=== PATIENT | female | born 1930 | race Caucasian/White ===

== ENCOUNTER → 2016-10-30 | Outpatient (CLI) | payer MEDICARE, BC ==
[~2016-10-30] MED LIST: AMBI10TA PO; DORZ2SOL RIGHT EYE; LATA0.002 EACH EYE; LOSA100T3 PO; LOSA50TA2 PO; MIRT30TA PO; MONT10TA2 PO; MULT-6 PO; OCUVCAP2 PO; PRAV20TA2 PO; TIMO0.5S5 EACH EYE; VITA100018 PO; VITA10002 PO; VITA10003 PO; XARE20TA PO
[2016-10-30 09:31] LABS: BASOPHIL % 0.3 % (0.0-2.0); EOSINOPHIL # 0.2 TH/MM3 (0-0.4); HEMATOCRIT 38.8 % (35.0-46.0); HEMO FLAGS DIFF FINAL; MEAN CORPUSCULAR HEMOGLOBIN 30.3 PG (27.0-34.0); MONO % 8.7 % (0.0-8.0); PLATELET COUNT 350 TH/MM3 (150-450); RED BLOOD COUNT 4.22 MIL/MM3 (4.00-5.30); RED CELL DISTRIBUTION WIDTH 13.9 % (11.6-17.2); WHITE BLOOD COUNT 6.9 TH/MM3 (4.0-11.0)
[2016-10-30 10:06] LABS: ALKALINE PHOSPHATASE 119 U/L (45-117); ALT (GPT) 20 U/L (10-53); ANION GAP 6 MEQ/L (5-15); AST (GOT) 20 U/L (15-37); BICARBONATE 28.6 MEQ/L (21.0-32.0); BLOOD UREA NITROGEN 18 MG/DL (7-18); CHLORIDE 101 MEQ/L (98-107); GLOMERULAR FILTRATION RATE 93 ML/MIN (>89); GLUCOSE,FASTING 88 MG/DL (74-99); LDL CHOLESTEROL 73 MG/DL (0-99); POTASSIUM 4.2 MEQ/L (3.5-5.1); SODIUM (NA) 136 MEQ/L (136-145); TOTAL BILIRUBIN ADULT 0.6 MG/DL (0.2-1.0)
== END ==
LOC: PLAB 08:02
PROVIDERS: ATTEND Family Medicine
DX: I48.91 Unspecified atrial fibrillation (principal); E78.5 Hyperlipidemia, unspecified; I10 Essential (primary) hypertension; Z79.01 Long term (current) use of anticoagulants
CPT/HCPCS: 36415; 80053; 80061; 85025

== ENCOUNTER 2016-11-14 18:51 | Emergency (ER) | payer MEDICARE, BC ==
[~2016-11-14] VITALS: Ht 170.2 cm; Wt 82.9 kg
[~2016-11-14 18:51] MED LIST changes: -DORZ2SOL RIGHT EYE; -LATA0.002 EACH EYE; -LOSA50TA2 PO; -OCUVCAP2 PO; -PRAV20TA2 PO; -VITA100018 PO; -VITA10002 PO
[2016-11-14 19:00] VITALS: BP 158/90; PULSE 81; RESP 18; TEMP 97.7; O2SAT 94
--- NOTE | 2016-11-14 19:18 | PD ---
HPI Chief Complaint: Hypertension Time Seen by Provider: 19:10 Travel History International Travel<30 days: No Contact w/Intl Traveler<30days: No Traveled to known affect area: No History of Present Illness HPI The patient is an 85-year-old female who states her blood pressure has been going up and down today. It is now 140/90. She states she has a gradual onset of a headache at the base of her skull and goes to the right slightly. She is on Xarelto for atrial fibrillation. She denies any focal neurologic change. She has no focal strength loss, no fever, no weakness or numbness anywhere. She has had some headaches like this before but they were higher up in her head. When the patient turns her head to the left she does feel some pain. PFSH Past Medical History Hx Anticoagulant Therapy: Yes (XERELTO) AAA: Yes Alzheimer's Disease: Yes ("EARLY") Arthritis: Yes (HANDS) Asthma: Yes Atrial Fibrillation: Yes Cancer: No Cardiovascular Problems: Yes High Cholesterol: Yes Cerebrovascular Accident: Yes (AUGUST 2013) Diminished Hearing: No Endocrine: No Glaucoma: Yes Hypertension: Yes Immune Disorder: No Inguinal Hernia: Yes Musculoskeletal: No Neurologic: Yes Psychiatric: No Respiratory: Yes Immunizations Current: Yes Pneumonia: Yes PNEUMOCCOCAL Vaccine (Year): 2009 Menopausal: Yes : 3 Para: 3 Past Surgical History Abdominal Surgery: Yes (LEFT INGUINAL HERNIA REPAIR) Appendectomy: Yes Eye Surgery: Yes (CATARACTS X2) Gynecologic Surgery: Yes (prolapsed uterus) Hysterectomy: Yes (PARTIAL) Other Surgery: Yes (2 BREAST BIOPSIES: EACH BREAST "NO MALIGNANCIES") Social History Alcohol Use: No Tobacco Use: No Substance Use: No Allergies-Medications (Allergen,Severity, Reaction): Coded Allergies: No Known Allergies (Verified , 11/14/16) Reported Meds & Prescriptions Reported Meds & Active Scripts Active Reported Ambien (Zolpidem Tartrate) 10 Mg Tab 10 Mg PO HS PRN Xarelto (Rivaroxaban) 20 Mg Tab 20 Mg PO DAILY Timoptic Opth Drops (Timolol Opth Drops) 0.5 % Soln 1 Drop EACH EYE BID Centrum (Multiple Vitamins W/ Minerals) 1 Tab 1 Tab PO DAILY Singulair (Montelukast Sodium) 10 Mg Tab 10 Mg PO HS Mirtazapine 30 Mg Tab 30 Mg PO HS Losartan-Hydrochlorothiazide 100-12.5 Mg Tab 1 Tab PO DAILY Vitamin D-3 (Cholecalciferol) 1,000 Unit Tab 1,000 Units PO DAILY Review of Systems Except as stated in HPI: all other systems reviewed are Neg Physical Exam Narrative GENERAL: The patient is alert, oriented 3 in minimal apparent distress with her headache. Her vital signs initially showed blood pressure 158/90 no repeat vital signs show 140/90 blood pressure. The rest of the vital signs are normal. SKIN: Warm and dry. HEAD: Atraumatic. Normocephalic. EYES: Pupils equal and round. No scleral icterus. No injection or drainage. ENT: No nasal bleeding or discharge. Mucous membranes pink and moist. NECK: Trachea midline. No JVD. There is no meningismus and the patient can flex neck fully without any hesitation so that the chin touches the chest. I can reproduce the patient's pain by pressing on the musculature of the upper neck. CARDIOVASCULAR: Regular rate and rhythm. No murmur appreciated. RESPIRATORY: No accessory muscle use. Clear to auscultation. Breath sounds equal bilaterally. GASTROINTESTINAL: Abdomen soft, non-tender, nondistended. Hepatic and splenic margins not palpable. MUSCULOSKELETAL: No obvious deformities. No clubbing. No cyanosis. No edema. NEUROLOGICAL: Awake and alert. No obvious cranial nerve deficits. Motor grossly within normal limits. Normal speech. PSYCHIATRIC: Appropriate mood and affect; insight and judgment normal. Data Data Last Documented VS Vital Signs Date Time Temp Pulse Resp B/P Pulse Ox O2 Delivery O2 Flow Rate FiO2 11/14/16 19:38 76 18 144/71 95 Room Air 11/14/16 19:[address] Brain W/O Iv Contrast(Rout) (11/14/16 19:10) [facility] Medical Decision Making Medical Screen Exam Complete: Yes Emergency Medical Condition: Yes Medical Record Reviewed: Yes Interpretation(s) The CT scan shows normal for a patient of this age. Differential Diagnosis Intercranial bleed, musculoskeletal headache, tension headache Narrative Course The patient appears to have a musculoskeletal headache. I can reproduce the pain by pressing on the musculature on the upper neck. It is not safe for her to take nonsteroidal anti-inflammatories with her anticoagulant and she does not want any pain medications. He can take plain Tylenol for the pain. Diagnosis Primary Impression: Neck pain, musculoskeletal Additional Instructions: Take plain Tylenol for the pain, this is about all its left other than narcotic pain pills which you do not want. Because this pain is musculoskeletal, it should go away on its own. If it does not heal left to see her primary care physician and, perhaps get an MRI of the neck. Med/Other Pt SpecificInfo: No Change to Meds Disposition: 01 DISCHARGE HOME Condition: Stable Marc Marti MD Nov 14, 2016 19:18
[2016-11-14 19:38] VITALS: BP 144/71; PULSE 76; RESP 18; O2SAT 95
[2016-11-14 20:10] VITALS: BP 105/62; PULSE 74; RESP 18; O2SAT 95
--- NOTE | 2016-11-14 20:24 | RADHPO ---
EXAM DATE/TIME: 11/14/2016 19:22 [facility] COMPARISON: CT BRAIN W/O CONTRAST, September 22, 2016, 21:56. INDICATIONS : Headache. RADIATION DOSE: 62.71 CTDIvol (mGy) MEDICAL HISTORY : Cerebrovascular disease. Alzheimer's. Hypertension. SURGICAL HISTORY : None. ENCOUNTER: Initial ACUITY: 1 day PAIN SCALE: 7/10 LOCATION: occipital TECHNIQUE: Multiple contiguous axial images were obtained of the head. Using automated exposure control and adj ustment of the mA and/or kV according to patient size, radiation dose was kept as low as reasonably a chievable to obtain optimal diagnostic quality images. FINDINGS: CEREBRUM: The ventricles are normal for age. No evidence of midline shift, mass lesion, hemorrhage or acute in farction. No extra-axial fluid collections are seen. POSTERIOR FOSSA: The cerebellum and brainstem are intact. The 4th ventricle is midline. The cerebellopontine angle i s unremarkable. EXTRACRANIAL: The visualized portion of the orbits is intact. SKULL: The calvaria is intact. No evidence of skull fracture. CONCLUSION: Normal examination for a patient of this age. No significant change has occurred. Pj Moses MD on November 14, 2016 at 20:21 Board Certified Radiologist. This report was verified electronically.
[2016-11-14 20:41] VITALS: BP 123/75
[2017-02-18] MEDS ORDERED: OCUVCAP2 PO (13:33)
[2017-02-18] MEDS ORDERED: LATA0.002 EACH EYE (13:34)
[2017-02-18] MEDS ORDERED: VITA10003 PO (13:34)
[2017-02-18] MEDS ORDERED: PRAV20TA2 PO (13:34)
[2017-03-26] MEDS ORDERED: VITA100018 PO (13:44)
[2017-03-26] MEDS ORDERED: VITA10002 PO (13:45)
[2017-03-26] MEDS ORDERED: DORZ2SOL RIGHT EYE (13:48)
== END 2016-11-14 20:55 | disposition home or self-care (01) ==
LOC: PHED 18:51
DX: M54.2 Cervicalgia (principal); R51 Headache; I10 Essential (primary) hypertension; I48.91 Unspecified atrial fibrillation; E78.00 Pure hypercholesterolemia, unspecified; Z79.01 Long term (current) use of anticoagulants
CPT/HCPCS: 70450

== ENCOUNTER 2016-12-02 20:28 | Observation (INO) | payer MEDICARE, BC ==
[~2016-12-02] VITALS: Ht 170.2 cm; Wt 83.0 kg
[2016-12-02 20:32] VITALS: BP 139/79; PULSE 79; RESP 14; TEMP 97.5; O2SAT 95
[2016-12-02] MEDS ORDERED: SODIUM CHLORIDE 0.9% FLUSH 5 ML FLUSH IVF PRN (21:30)
[2016-12-02 21:33] LABS: AUTOMATED NEUTROPHIL # 4.8 TH/MM3 (1.8-7.7); BASOPHIL % 0.5 % (0.0-2.0); EOSINOPHIL # 0.2 TH/MM3 (0-0.4); EOSINOPHIL % 2.6 % (0.0-4.0); HEMATOCRIT 37.7 % (35.0-46.0); HEMO FLAGS DIFF FINAL; LYMPH % 19.9 % (9.0-44.0); LYMPHOCYTE # 1.4 TH/MM3 (1.0-4.8); MEAN CELL VOLUME 90.8 FL (80.0-100.0); MEAN CORPUSCULAR HEMOGLOBIN 31.1 PG (27.0-34.0); MEAN CORPUSCULAR HGB CONC 34.2 % (32.0-36.0); MONO % 9.1 % (0.0-8.0); NEUT % 67.9 % (16.0-70.0); PLATELET COUNT 329 TH/MM3 (150-450); RED BLOOD COUNT 4.16 MIL/MM3 (4.00-5.30); RED CELL DISTRIBUTION WIDTH 14.4 % (11.6-17.2); WHITE BLOOD COUNT 7.1 TH/MM3 (4.0-11.0)
[2016-12-02 21:47] LABS: APTT (PATIENT) 26.4 SEC (24.3-30.1); PROTHROMBIN TIME - PATIENT 10.9 SEC (9.8-11.6)
--- NOTE | 2016-12-02 21:52 | RADRPT ---
EXAM DATE/TIME: 12/02/2016 21:37 [facility] COMPARISON: CHEST SINGLE AP, February 19, 2014, 17:18. INDICATIONS : Patient was passed out tonight at [employer].She had shallow breathing. MEDICAL HISTORY : Hypertension. Stroke. SURGICAL HISTORY : None. ENCOUNTER: Initial ACUITY: 1 day PAIN SCORE: 0/10 LOCATION: chest FINDINGS: There is mild bibasilar atelectasis. No large effusion seen. No pneumothorax. Heart size stable, upper limits of normal. Thoracic aorta is tortuous. CONCLUSION: Mild bibasilar atelectasis. Bud Turner MD on December 02, 2016 at 21:50 Board Certified Radiologist. This report was verified electronically.
[2016-12-02 21:58] VITALS: BP 144/71; PULSE 77; RESP 14; O2SAT 96
[2016-12-03 00:34] LABS: ANION GAP 8 MEQ/L (5-15); AST (GOT) 24 U/L (15-37); BICARBONATE 29.4 MEQ/L (21.0-32.0); BLOOD UREA NITROGEN 21 MG/DL (7-18); CHLORIDE 99 MEQ/L (98-107); GLOMERULAR FILTRATION RATE 86 ML/MIN (>89); MAGNESIUM 2.2 MG/DL (1.5-2.5); SODIUM (NA) 136 MEQ/L (136-145)
[2016-12-03 00:38] LABS: ALKALINE PHOSPHATASE 98 U/L (45-117); ALT (GPT) 25 U/L (10-53); CREATINE KINASE 128 U/L (26-192); TOTAL BILIRUBIN ADULT 0.4 MG/DL (0.2-1.0)
[2016-12-03 00:50] LABS: CKMB 2.2 NG/ML (0.5-3.6)
--- NOTE | 2016-12-03 00:51 | PD ---
HPI Chief Complaint: Syncope/Near-Syncope Time Seen by Provider: 21:17 Travel History International Travel<30 days: No Contact w/Intl Traveler<30days: No Traveled to known affect area: No History of Present Illness HPI Patient is an 85-year-old female presents emergency department for evaluation of syncopal episode at [facility] today. Patient was coming by her at [facility] who states she was slumped over and appeared as though she was sleeping. He was unable to arouse her and actually had to stop the services so that they could attend to her. Patient was assessed by 3 bystanders including one nurse who were unable to find pulses. The patient was being laid down in the pew and was going to be started on chest compressions in the field within the patient came to. She states currently she feels fine denies any focal weakness dizziness chest pain shortness of breath abdominal pain nausea vomiting. PFSH Past Medical History Hx Anticoagulant Therapy: Yes (XARELTO) AAA: Yes Alzheimer's Disease: Yes ("EARLY") Arthritis: Yes (HANDS) Asthma: Yes Atrial Fibrillation: Yes Cancer: No Cardiovascular Problems: Yes (A FIB, HTN) High Cholesterol: Yes Diminished Hearing: No Endocrine: No Glaucoma: Yes Hypertension: Yes Immune Disorder: No Inguinal Hernia: Yes Musculoskeletal: No Neurologic: Yes Psychiatric: No Respiratory: Yes (ASTHMA) Immunizations Current: Yes Pneumonia: Yes PNEUMOCCOCAL Vaccine (Year): 2009 ?: Not Menopausal: Yes : 3 Para: 3 Past Surgical History Abdominal Surgery: Yes (LEFT INGUINAL HERNIA REPAIR) Appendectomy: Yes Eye Surgery: Yes (CATARACTS X2) Gynecologic Surgery: Yes (prolapsed uterus) Hysterectomy: Yes Other Surgery: Yes (2 BREAST BIOPSIES: EACH BREAST "NO MALIGNANCIES") Social History Alcohol Use: No Tobacco Use: No Substance Use: No Allergies-Medications (Allergen,Severity, Reaction): Coded Allergies: No Known Allergies (Verified , 12/02/16) Reported Meds & Prescriptions Reported Meds & Active Scripts Active Reported Ambien (Zolpidem Tartrate) 10 Mg Tab 10 Mg PO HS PRN Xarelto (Rivaroxaban) 20 Mg Tab 20 Mg PO DAILY Timoptic Opth Drops (Timolol Opth Drops) 0.5 % Soln 1 Drop EACH EYE BID Centrum (Multiple Vitamins W/ Minerals) 1 Tab 1 Tab PO DAILY Singulair (Montelukast Sodium) 10 Mg Tab 10 Mg PO HS Mirtazapine 30 Mg Tab 30 Mg PO HS Losartan-Hydrochlorothiazide 100-12.5 Mg Tab 1 Tab PO DAILY Vitamin D-3 (Cholecalciferol) 1,000 Unit Tab 1,000 Units PO DAILY Review of Systems Except as stated in HPI: all other systems reviewed are Neg Physical Exam Narrative GENERAL: Well-developed well-nourished quite pleasant female in no apparent distress. SKIN: Warm and dry. HEAD: Atraumatic. Normocephalic. EYES: Pupils equal and round. No scleral icterus. No injection or drainage. ENT: No nasal bleeding or discharge. Mucous membranes pink and moist. NECK: Trachea midline. No JVD. CARDIOVASCULAR: Regular rate and rhythm. No murmur appreciated. RESPIRATORY: No accessory muscle use. Clear to auscultation. Breath sounds equal bilaterally. GASTROINTESTINAL: Abdomen soft, non-tender, nondistended. Hepatic and splenic margins not palpable. MUSCULOSKELETAL: No obvious deformities. No clubbing. No cyanosis. No edema. NEUROLOGICAL: Awake and alert. Oriented 3, cranial nerves II through XII are grossly intact nonfocal, 5 out of 5 strength in all 4 tremors. Cerebellar testing normal. Ambulates in the emergency department even and balance with a narrow based gait. PSYCHIATRIC: Appropriate mood and affect; insight and judgment normal. Data Data Last Documented VS Vital Signs Date Time Temp Pulse Resp B/P Pulse Ox O2 Delivery O2 Flow Rate FiO2 12/02/16 21:58 77 14 144/71 96 Room Air 12/02/16 20:32 97.5 Orders Electrocardiogram (12/02/16 21:17) Ckmb (Isoenzyme) Profile (12/02/16 21:17) Complete Blood Count With Diff (12/02/16 21:17) Comprehensive Metabolic Panel (12/02/16 21:17) Magnesium (Mg) (12/02/16 21:17) Prothrombin Time / Inr (Pt) (12/02/16 21:17) Act Partial Throm Time (Ptt) (12/02/16 21:17) Troponin I (12/02/16 21:17) Chest, Single Ap (12/02/16 21:17) Ecg Monitoring (12/02/16 21:17) Bilateral Bp Monitoring (12/02/16 21:17) Iv Access Insert/Monitor (12/02/16 21:17) Oximetry (12/02/16 21:17) Oxygen Administration (12/02/16 21:17) Sodium Chloride 0.9% Flush (Ns Flush) (12/02/16 21:30) CKMB (12/03/16 00:06) CKMB% (12/03/16 00:06) Admit Order (Ed Use Only) (12/03/16 ) Labs Laboratory Tests Test 12/02/16 12/03/16 21:25 00:06 Prothrombin Time 10.9 SEC Prothromb Time International 1.0 RATIO Ratio Activated Partial 26.4 SEC Thromboplast Time White Blood Count 7.1 TH/MM3 Red Blood Count 4.16 MIL/MM3 Hemoglobin 12.9 GM/DL Hematocrit 37.7 % Mean Corpuscular Volume 90.8 FL Mean Corpuscular Hemoglobin 31.1 PG Mean Corpuscular Hemoglobin 34.2 % Concent Red Cell Distribution Width 14.4 % Platelet Count 329 TH/MM3 Mean Platelet Volume 7.4 FL Neutrophils (%) (Auto) 67.9 % Lymphocytes (%) (Auto) 19.9 % Monocytes (%) (Auto) 9.1 % Eosinophils (%) (Auto) 2.6 % Basophils (%) (Auto) 0.5 % Neutrophils # (Auto) 4.8 TH/MM3 Lymphocytes # (Auto) 1.4 TH/MM3 Monocytes # (Auto) 0.6 TH/MM3 Eosinophils # (Auto) 0.2 TH/MM3 Basophils # (Auto) 0.0 TH/MM3 CBC Comment DIFF FINAL Differential Comment Sodium Level 136 MEQ/L Potassium Level 4.0 MEQ/L Chloride Level 99 MEQ/L Carbon Dioxide Level 29.4 MEQ/L Anion Gap 8 MEQ/L Blood Urea Nitrogen 21 MG/DL Creatinine 0.65 MG/DL Estimat Glomerular Filtration 86 ML/MIN Rate Random Glucose 103 MG/DL Calcium Level 9.0 MG/DL Magnesium Level 2.2 MG/DL Total Bilirubin 0.4 MG/DL Aspartate Amino Transf 24 U/L (AST/SGOT) Alanine Aminotransferase 25 U/L (ALT/SGPT) Alkaline Phosphatase 98 U/L Total Creatine Kinase 128 U/L Creatine Kinase MB 2.2 NG/ML Troponin I LESS THAN 0.02 NG/ML Total Protein 8.4 GM/DL Albumin 4.5 GM/DL [facility] Medical Decision Making Medical Screen Exam Complete: Yes Emergency Medical Condition: Yes Interpretation(s) EKG shows sinus first degree heart block with a SC interval of 202. Borderline left axis deviation, early R-wave transition. No concerning ST T changes. This a borderline EKG. Differential Diagnosis Cardiogenic syncope, cardiac arrest, asystole, ACS, AMI, neurogenic syncope, narcolepsy Narrative Course Patient was roomed in the emergency department, on arrival appears completely asymptomatic. Vital signs physical exam and labs are reassuring. EKG shows no concerning signs of ischemia. Patient appears well after discussion with her concerned that 3 bystanders were unable to find her pulse and she was very difficult to arouse in the field. Adding concerns for cardiogenic syncope. Patient will be discussed with Dr. Ascencio for observation status. Diagnosis Primary Impression: Syncope Qualified Code: T67.1XXA - Heat syncope, initial encounter Admitting Information Admitting Physician Requests: Observation Condition: Stable Jorge Gabriel MD Dec 03, 2016 00:51
[2016-12-03] MEDS ORDERED: SODIUM CHLORIDE 0.9% FLUSH 5 ML FLUSH FLUSH PRN (01:15)
[2016-12-03] MEDS ORDERED: NALOXONE HCL 0.4 MG/ML AMP IV PRN (01:15)
[2016-12-03 03:13] VITALS: BP 102/55; PULSE 75; RESP 12; O2SAT 94
--- NOTE | 2016-12-03 05:48 | HHI.HP ---
[facility] Terry Hernandez MD Admission Diagnosis Syncope Diagnoses: Chief Complaint: Past out Travel History International Travel<30 Days: No Contact w/Intl Traveler <30 Da: No Traveled to Known Affected Are: No History of Present Illness History from patient with her at the bedside, and ER physician communication and review of medical records. Patient reported that she was at [employer] function in a sitting position and somehow she had passed out. Next thing she knows, she was on the floor surrounded by multiple people. She reports prior to this episode, she was feeling somewhat dizzy and had some sweats. She then had a syncopal episode. However, apart from the above, she denies any chest pains/palpitations/dizziness /focal weakness. Denies any hematemesis/hematochezia/melena/hematuria. Patient then had a syncopal episode and has been noted her to be having some drooling. He therefore stopped the restorationist and and ask for help. Apparently, 3 bystanders on the scene confirms that patient did not have a pulse and actually performed in ER. Patient then awakens, and was entirely awake alert oriented since then. Patient denies any recent fever/nausea/vomiting/urinary burning/pain on urination. Review of Systems Except as stated in HPI: all other systems reviewed are Neg Past Family Social History Past Medical History Hypertension Atrial fibrillation History of CVA Past Surgical History Cataract surgery Uterine prolapse surgery Inguinal hernia repair Breast biopsies Reported Medications Patient's medications listed in EMR and is reviewed Allergies: Coded Allergies: No Known Allergies (Verified , 12/02/16) Family History Denies family history of any medical conditions. Social History Denies smoking ever in her life. Denies any alcohol abuse or drug abuse. Lives with her . Still driving. Physical Exam Vital Signs Vital Signs Date Time Temp Pulse Resp B/P Pulse Ox O2 Delivery O2 Flow Rate FiO2 12/03/16 03:13 75 12 102/55 94 Room Air 12/02/16 21:58 77 14 144/71 96 Room Air 12/02/16 20:55 78 12 95 Room Air 12/02/16 20:32 97.5 79 14 139/79 95 Room Air Physical Exam GENERAL: This is a well-nourished, well-developed patient, in no apparent distress. SKIN: No rashes, ecchymoses or lesions. Cool and dry. HEAD: Atraumatic. Normocephalic. No temporal or scalp tenderness. EYES: No scleral icterus. No injection or drainage. ENT: Nose without bleeding, purulent drainage or septal hematoma. Airway patent. NECK: Trachea midline. No JVD CARDIOVASCULAR: Regular rate and rhythm without murmurs, gallops, or rubs. RESPIRATORY: Clear to auscultation. Breath sounds equal bilaterally. No wheezes , rales, or rhonchi. GASTROINTESTINAL: Abdomen soft, non-tender, nondistended. No guarding. MUSCULOSKELETAL: Extremities without clubbing, cyanosis, or edema.. No calf tenderness. NEUROLOGICAL: Awake and alert. Motor and sensory grossly within normal limits. Normal speech. Laboratory Laboratory Tests Test 12/02/16 12/03/16 21:25 00:06 Prothrombin Time 10.9 Prothromb Time International 1.0 Ratio Activated Partial 26.4 Thromboplast Time White Blood Count 7.1 Red Blood Count 4.16 Hemoglobin 12.9 Hematocrit 37.7 Mean Corpuscular Volume 90.8 Mean Corpuscular Hemoglobin 31.1 Mean Corpuscular Hemoglobin 34.2 Concent Red Cell Distribution Width 14.4 Platelet Count 329 Mean Platelet Volume 7.4 Neutrophils (%) (Auto) 67.9 Lymphocytes (%) (Auto) 19.9 Monocytes (%) (Auto) 9.1 Eosinophils (%) (Auto) 2.6 Basophils (%) (Auto) 0.5 Neutrophils # (Auto) 4.8 Lymphocytes # (Auto) 1.4 Monocytes # (Auto) 0.6 Eosinophils # (Auto) 0.2 Basophils # (Auto) 0.0 CBC Comment DIFF FINAL Differential Comment Sodium Level 136 Potassium Level 4.0 Chloride Level 99 Carbon Dioxide Level 29.4 Anion Gap 8 Blood Urea Nitrogen 21 Creatinine 0.65 Estimat Glomerular Filtration 86 Rate Random Glucose 103 Calcium Level 9.0 Magnesium Level 2.2 Total Bilirubin 0.4 Aspartate Amino Transf 24 (AST/SGOT) Alanine Aminotransferase 25 (ALT/SGPT) Alkaline Phosphatase 98 Total Creatine Kinase 128 Creatine Kinase MB 2.2 Troponin I LESS THAN 0.02 Total Protein 8.4 Albumin 4.5 Result Diagram: 12/02/16212412/03/16 0006 Imaging Last [address] 12/03/16 0000 Signed Impressions: Service Date/Time: November 06:13 - CONCLUSION: No acute disease. Bud Joaquin MD Chest X-Ray 12/02/162116 Signed Impressions: Service Date/Time: Friday, December 02, 2016 21:37 - CONCLUSION: Mild bibasilar atelectasis. Bud Turner MD Assessment and Plan Assessment and Plan Impression: Syncope Possible seizure? as pt's reported to ER that she was drooling. Reported CPR in the fieldquestion whether patient was bradycardic rather than pulseless. Given that she has history of A. fib, would need to rule out sick sinus syndrome Hypertension Atrial fibrillation History of CVA Plan: Serial cardiac enzymes and EKGs. Patient's latest echocardiogram was in June 2016. Personally reviewed. No significant valvular pathology. Preserved LVEF. No wall motion abnormalities. At this point, I would not repeat echo. Similarly, recent carotid sonogram done in June 2016. Personally reviewed. No hemodynamically significant stenosis. Would not repeat testing. EEG in a.m. Given that patient has history of atrial fibrillation, with supposedly pulseless activity on the same by parents standers requiring brief CPR, question whether this was actually a bradycardic episode causing syncope. Therefore would consult patient's adult secondary education instructor for possible investigations regarding sick sinus syndrome/need of pacemaker placement. Would also obtain head CT to rule out intracranial etiologies regarding her syncope versus seizures. Otherwise, resume all her medications. DVT prophylaxison Xarelto.. Discussed Condition With Patient, ER physician, patient's Physician Certification Order for Inpatient Services The services are ordered in accordance with Medicare regulations or non- Medicare payer requirements, as applicable. In the case of services not specified as inpatient-only, they are appropriately provided as inpatient services in accordance with the 2-midnight benchmark. Estimated LOS (days): 2 days is the estimated time the patient will need to remain in the hospital, assuming treatment plan goals are met and no additional complications. Ariadne Mauricio MD Dec 03, 2016 05:48
[2016-12-03 06:39] VITALS: PULSE 102
--- NOTE | 2016-12-03 06:39 | RADRPT ---
EXAM DATE/TIME: 12/03/2016 06:13 [facility] COMPARISON: CT BRAIN W/O CONTRAST, November 14, 2016, 19:22. INDICATIONS : Syncope. RADIATION DOSE: 56.36 CTDIvol (mGy) MEDICAL HISTORY : Hypertension. Cerebrovascular disease. Cardiovascular disease SURGICAL HISTORY : None. ENCOUNTER: Initial ACUITY: 1 day PAIN SCALE: 0/10 LOCATION: cranial TECHNIQUE: Multiple contiguous axial images were obtained of the head. Using automated exposure control and adj ustment of the mA and/or kV according to patient size, radiation dose was kept as low as reasonably a chievable to obtain optimal diagnostic quality images. FINDINGS: CEREBRUM: The ventricles are normal for age. No evidence of midline shift, mass lesion, hemorrhage or acute in farction. No extra-axial fluid collections are seen. POSTERIOR FOSSA: The cerebellum and brainstem are intact. The 4th ventricle is midline. The cerebellopontine angle i s unremarkable. EXTRACRANIAL: The visualized portion of the orbits is intact. SKULL: The calvaria is intact. No evidence of skull fracture. CONCLUSION: No acute disease. Bud Joaquin MD on December 03, 2016 at 6:37 Board Certified Radiologist. This report was verified electronically.
[2016-12-03 07:51] LABS: CREATINE KINASE 90 U/L (26-192)
--- NOTE | 2016-12-03 07:57 | HHI.HP ---
[facility] Terry Hernandez MD Admission Diagnosis Syncope Diagnoses: Chief Complaint: passed out Travel History International Travel<30 Days: No Contact w/Intl Traveler <30 Da: No Traveled to Known Affected Are: No History of Present Illness History from patient with her at the bedside, and ER physician communication and review of medical records. Patient reported that she was at [employer] function in a sitting position and somehow she had passed out. Next thing she knows, she was on the floor surrounded by multiple people. She reports prior to this episode, she was feeling somewhat dizzy and had some sweats. She then had a syncopal episode. However, apart from the above, she denies any chest pains/palpitations/dizziness /focal weakness. Denies any hematemesis/hematochezia/melena/hematuria. Patient then had a syncopal episode and has been noted her to be having some drooling. He therefore stopped the hindu and and ask for help. Apparently, 3 bystanders on the scene confirms that patient did not have a pulse and actually performed in ER. Patient then awakens, and was entirely awake alert oriented since then. Patient denies any recent fever/nausea/vomiting/urinary burning/pain on urination. Review of Systems Except as stated in HPI: all other systems reviewed are Neg Past Family Social History Past Medical History Hypertension Atrial fibrillation History of CVA Past Surgical History Cataract surgery Uterine prolapse surgery Inguinal hernia repair Breast biopsies Reported Medications Patient's medications listed in EMRreviewed Allergies: Coded Allergies: No Known Allergies (Verified , 12/02/16) Family History Denies family history of any medical conditions. Social History Denies smoking ever in her life. Denies any alcohol abuse or drug abuse. Lives with her . Still driving. Physical Exam Vital Signs Vital Signs Date Time Temp Pulse Resp B/P Pulse Ox O2 Delivery O2 Flow Rate FiO2 12/03/16 06:39 102 12/03/16 03:13 75 12 102/55 94 Room Air 12/02/16 21:58 77 14 144/71 96 Room Air 12/02/16 20:55 78 12 95 Room Air 12/02/16 20:32 97.5 79 14 139/79 95 Room Air Physical Exam GENERAL: This is a well-nourished, well-developed patient, in no apparent distress. SKIN: No rashes, ecchymoses or lesions. Cool and dry. HEAD: Atraumatic. Normocephalic. No temporal or scalp tenderness. EYES: No scleral icterus. No injection or drainage. ENT: Nose without bleeding, purulent drainage or septal hematoma. CARDIOVASCULAR: Regular rate and rhythm without murmurs, gallops, or rubs. RESPIRATORY: Clear to auscultation. Breath sounds equal bilaterally. No wheezes , rales, or rhonchi. GASTROINTESTINAL: Abdomen soft, non-tender, nondistended. No guarding. MUSCULOSKELETAL: Extremities without clubbing, cyanosis, or edema.. No calf tenderness. NEUROLOGICAL: Awake and alert Motor and sensory grossly within normal limits. . Normal speech. Laboratory Laboratory Tests Test 12/02/16 12/03/16 21:25 00:06 Prothrombin Time 10.9 Prothromb Time International 1.0 Ratio Activated Partial 26.4 Thromboplast Time White Blood Count 7.1 Red Blood Count 4.16 Hemoglobin 12.9 Hematocrit 37.7 Mean Corpuscular Volume 90.8 Mean Corpuscular Hemoglobin 31.1 Mean Corpuscular Hemoglobin 34.2 Concent Red Cell Distribution Width 14.4 Platelet Count 329 Mean Platelet Volume 7.4 Neutrophils (%) (Auto) 67.9 Lymphocytes (%) (Auto) 19.9 Monocytes (%) (Auto) 9.1 Eosinophils (%) (Auto) 2.6 Basophils (%) (Auto) 0.5 Neutrophils # (Auto) 4.8 Lymphocytes # (Auto) 1.4 Monocytes # (Auto) 0.6 Eosinophils # (Auto) 0.2 Basophils # (Auto) 0.0 CBC Comment DIFF FINAL Differential Comment Sodium Level 136 Potassium Level 4.0 Chloride Level 99 Carbon Dioxide Level 29.4 Anion Gap 8 Blood Urea Nitrogen 21 Creatinine 0.65 Estimat Glomerular Filtration 86 Rate Random Glucose 103 Calcium Level 9.0 Magnesium Level 2.2 Total Bilirubin 0.4 Aspartate Amino Transf 24 (AST/SGOT) Alanine Aminotransferase 25 (ALT/SGPT) Alkaline Phosphatase 98 Total Creatine Kinase 128 Creatine Kinase MB 2.2 Troponin I LESS THAN 0.02 Total Protein 8.4 Albumin 4.5 Result Diagram: 12/02/16212412/03/16 0006 Imaging Last [address] 12/03/16 0000 Signed Impressions: Service Date/Time: November 06:13 - CONCLUSION: No acute disease. Bud Joaquin MD Chest X-Ray 12/02/162116 Signed Impressions: Service Date/Time: Friday, December 02, 2016 21:37 - CONCLUSION: Mild bibasilar atelectasis. Bud Turner MD Assessment and Plan Assessment and Plan Impression: Syncope Possible seizure? as pt's reported to ER that she was drooling. Reported CPR in the fieldquestion whether patient was bradycardic rather than pulseless. Given that she has history of A. fib, would need to rule out sick sinus syndrome Hypertension Atrial fibrillation History of CVA Plan: Serial cardiac enzymes and EKGs. Patient's latest echocardiogram was in June 2016. Personally reviewed. No significant valvular pathology. Preserved LVEF. No wall motion abnormalities. At this point, I would not repeat echo. Similarly, recent carotid sonogram done in June 2016. Personally reviewed. No hemodynamically significant stenosis. Would not repeat testing. EEG in a.m. Given that patient has history of atrial fibrillation, with supposedly pulseless activity on the same by parents standers requiring brief CPR, question whether this was actually a bradycardic episode causing syncope. Therefore would consult patient's chemical dependency counselor for possible investigations regarding sick sinus syndrome/need of pacemaker placement. Would also obtain head CT to rule out intracranial etiologies regarding her syncope versus seizures. Otherwise, resume all her medications. DVT prophylaxison Xarelto.. Discussed Condition With Patient, ER physician, patient's Ariadne Mauricio MD Dec 03, 2016 07:57
[2016-12-03 08:00] VITALS: BP 110/60; PULSE 76; RESP 16; TEMP 97.4; O2SAT 96
[2016-12-03 08:30] VITALS: PULSE 68
[2016-12-03] MEDS ORDERED: HYDROCHLOROTHIAZIDE 12.5 MG CAP PO SCH (09:00)
[2016-12-03] MEDS ORDERED: NON-FORMULARY DRUG (Losartan-Hydrochlorothiazide 1 TAB) PO SCH (09:00)
[2016-12-03] MEDS ORDERED: LOSARTAN 50 MG TAB PO SCH (09:00)
[2016-12-03] MEDS ORDERED: RIVAROXABAN 20 MG TAB PO SCH (09:00)
[2016-12-03] MEDS ORDERED: SODIUM CHLORIDE 0.9% FLUSH 5 ML FLUSH FLUSH SCH (09:00)
[2016-12-03] MEDS ORDERED: ENOXAPARIN SODIUM 40 MG/0.4 ML SYRINGE SQ SCH (09:00)
--- NOTE | 2016-12-03 09:51 | HHI.PR ---
Subjective Remarks Follow up for syncope. The patient reports feeling much better today, denies any headache, lightheadedness, dizziness, chest pain, shortness breath, palpitations, or abdominal complaints. She's been ambulating in the hallway without difficulty. She explained she has had some house guests over the past week and has been much more active than usual. States yesterday she was feeling "run down". She went to [facility] last night, while sitting she started to feel very flushed and lightheaded, then the next thing she remembers is waking up on the pew with multiple people standing over her. She states there was a RN and a psychiatrist in the [facility] that states she was pulseless at first , was about to initiate compressions when the patient awoke. She had a similar episode 4 years ago when she just felt ill, didn't feel like herself, so she went to the hospital and was found to have 3 small areas of stroke on her MRI. Objective Vitals Vital Signs Date Time Temp Pulse Resp B/P Pulse Ox O2 Delivery O2 Flow Rate FiO2 12/03/16 08:00 97.4 76 16 110/60 96 12/03/16 06:39 102 12/03/16 03:13 75 12 102/55 94 Room Air 12/02/16 21:58 77 14 144/71 96 Room Air 12/02/16 20:55 78 12 95 Room Air 12/02/16 20:32 97.5 79 14 139/79 95 Room Air Result Diagram: 12/02/16212412/03/16 0006 Imaging Last Impressions Head CT 12/03/16 0000 Signed Impressions: Service Date/Time: November 06:13 - CONCLUSION: No acute disease. Bud Joaquin MD Chest X-Ray 12/02/162116 Signed Impressions: Service Date/Time: Friday, December 02, 2016 21:37 - CONCLUSION: Mild bibasilar atelectasis. Bud Turner MD Objective Remarks GENERAL: Well-nourished, well-developed pleasant elderly female patient in [facility]. SKIN: Warm and dry. No rash. HEENT: Normocephalic. Atraumatic. Pupils equal and round. No scleral icterus. No injection or drainage. Mucous membranes pink and moist. NECK: Supple. Trachea midline. CARDIOVASCULAR: Regular rate and rhythm. S1, S2 noted. No murmur appreciated. RESPIRATORY: No accessory muscle use. Clear to auscultation. Breath sounds equal bilaterally. GASTROINTESTINAL: Abdomen soft, non-tender, nondistended. Normoactive bowel sounds x4. MUSCULOSKELETAL: No obvious deformities. B/l legs with chronic venous stasis changes, left leg slightly more edematous than the right. B/l calves nontender. NEUROLOGICAL: Awake and alert. No obvious cranial nerve deficits. Motor grossly within normal limits. 5/5 muscle strength in bilateral upper and lower extremities. Normal speech. PSYCHIATRIC: Appropriate mood and affect; insight and judgment normal. Medications and IVs Current Medications Medications (Trade) Dose Ordered Sig/Young Route Start Time Stop Time Status Last Admin (NS Flush) 2 ml UNSCH PRN FLUSH 12/03/16 01:15 (NS Flush) 2 ml BID FLUSH 12/03/16 09:00 12/03/16 08:34 (Narcan Inj) 0.4 mg UNSCH PRN IV 12/03/16 01:15 (Remeron) 30 mg HS PO 12/03/16 21:00 (Singulair) 10 mg HS PO 12/03/16 21:00 (Xarelto) 20 mg DAILY PO 12/03/16 09:00 12/03/16 08:33 (Cozaar) 100 mg DAILY PO 12/03/16 09:00 12/03/16 08:33 (Microzide) 12.5 mg DAILY PO 12/03/16 09:00 12/03/16 08:33 Urinary Catheter: No Vascular Central Line Catheter: No A/P Assessment and Plan 85-year-old female with history of hypertension, atrial fibrillation, CVA, presents after a syncopal episode with questionable pulseless activity last night 12/02 while at [facility]. Syncope: unclear etiology. Head CT images reviewed by me, unremarkable. CBC, BMP unremarkable. Prior admission Jun 2016, workup included: Carotid U/S showed plaque without significant stenosis. Brain MRI unremarkable. Head MRA with extensive intracranial atherosclerotic vascular disease. Echo with normal EF 55- 60%, mild MR. -ACS rule out with negative cardiac enzymes and EKG x2 -Possible seizure, reported patient drooling, check EEG. -Questionable pulseless activity, see below. -Check orthostatics -PT consult Possible Pulseless Activity vs Bradycardia: reportedly patient without pulse after the episode, no compressions given as the patient awoke. -check Holter monitor -Consult patient's mold unloader Dr. Neil Paroxysmal Atrial Fibrillation: chronic, EKG upon arrival reviewed, showed NSR -Continue patient's Xarelto Hypertension: with borderline hypotension -hold patient's Losartan/HCTZ for now -monitor BP, restart meds as needed DVT Prophylaxis: on Xarelto Discussed with Dr. Casillas. Discharge Planning 1600hrs: Patient's EEG is negative. Holter in place. Decreased Losartan from 100mg to 50mg due to borderline hypotension. Orthostatics negative. PT recommended no HHC. RN discussed extensively over the phone with patient's mold unloader Dr. Neil, reviewed all notes, EKGs, labs, vitals, imaging. Dr. Neil cleared the patient for discharge home from cardiology standpoint, requested follow up in his office early next week. Discussed with Dr. Casillas who has seen the patient, agrees with discharge home. Discharge patient to home Condition on discharge: Improved Heart Healthy Diet as tolerated Ad Liudmila activity Rx written: Losartan/HCTZ 50mg/12.5mg po qd Follow-up with primary care physician Dr. Hernandez and mold unloader Dr. Neil in 1 week Attending Statement The exam, history, and the medical decision-making described in the above note were completed with the assistance of the mid-level provider. I reviewed and agree with the findings presented. I attest that I had a [id number] encounter with the patient on the same day, and personally performed and documented my assessment and findings in the medical record. Sandra Mares PA-C Dec 03, 2016 09:51 Brandan Casillas MD Dec 04, 2016 08:52
--- NOTE | 2016-12-03 11:09 | RADRPT ---
EXAM DATE/TIME: 12/03/2016 09:16 [facility] COMPARISON: No previous studies available for comparison. INDICATIONS : Leg pain and swelling. MEDICAL HISTORY : Aneurysm, abdominal. Hypercholesterolemia. Hypertension. Glaucoma. CVA. Alzheimers. Afib. Asthma. P neumonia. Inguinal hernia. Arthritis. Prolapsed uterus. SURGICAL HISTORY : Inguinal hernia repair.Hysterectomy. Appendectomy.Breast biopsy. ENCOUNTER: Initial ACUITY: 1 day PAIN SCORE: 2/10 LOCATION: Bilateral legs. TECHNIQUE: Venous ultrasound of the left and right leg was performed from the inguinal ligament to the proximal calf. Real-time, color Doppler and spectral tracing, compression and augmentation techniques were us ed. FINDINGS: RIGHT LEG: There is normal compressibility of the deep venous system from the inguinal region to the proximal ca lf. No echogenic clot is seen in the lumen of the common femoral, femoral, popliteal, and posterior tibial veins. There is a normal response of the venous system to proximal and distal augmentation an d respiration. LEFT LEG: There is normal compressibility of the deep venous system from the inguinal region to the proximal ca lf. No echogenic clot is seen in the lumen of the common femoral, femoral, popliteal, and posterior tibial veins. There is a normal response of the venous system to proximal and distal augmentation an d respiration. Incidental note of a popliteal cyst measuring 2.8 x 1.0 x 1.5 cm. CONCLUSION: The study is negative for deep venous thrombosis bilateral lower extremity. Vlad Torres MD on December 03, 2016 at 11:06 Board Certified Radiologist. This report was verified electronically.
[2016-12-03 12:30] VITALS: BP_SYST 122; BP_SYST 162; BP_DIAS 64; BP_DIAS 80; PULSE 78; RESP 17; TEMP 96.6; O2SAT 98
[2016-12-03 13:57] LABS: CREATINE KINASE 98 U/L (26-192)
--- NOTE | 2016-12-03 15:34 | MG ---
cc: LOC MAURO M.D. Lab No: [id number] Date: 12/03/2016 Age: 85 Sex: F Race: DATE OF : [address] Mauricio. In room G78 with photic stimulation, awake, drowsy, asleep study. CT is negative, admitted for eval of syncope at [facility], slumped over, appeared like she was sleeping. She has a history of cataracts, glaucoma, atrial fib, AAA, stroke, hyperlipidemia. MEDICINES Mirtazapine, Singulair, Lovenox, Xarelto, Cozaar, Narcan. DESCRIPTION OF RECORD The patient has overall 9 Hz, 20 to 30 microvolt alpha rhythm, some eye movement artifact but overall symmetrical background. EKG seems sinus. Some attenuation, she tends to fall asleep, there is more artifact with mild attenuation but awake, normal alpha rhythm. Photic stimulation with a posterior driving response. IMPRESSION Overall normal-appearing EEG. No evidence of any epileptic activity. Clinical correlation. MD NAREN Marx/MONI /2:50 PM /3:06 PM
[2016-12-03 16:00] VITALS: BP 127/68; PULSE 76; RESP 17; TEMP 97.2; O2SAT 97
[2016-12-03] MEDS ORDERED: LOSA50TA2 PO (16:04)
--- NOTE | 2016-12-03 16:08 | HHI.DCPOC ---
Discharge Care Plan Diagnosis: (1) Syncope Goals to Promote Your Health * To prevent worsening of your condition and complications * To maintain your health at the optimal level Directions to Meet Your Goals Take your medications as prescribed Follow your dietary instruction Follow activity as directed Keep your appointments as scheduled Take your immunizations and boosters as scheduled If your symptoms worsen call your PCP, if no PCP go to Urgent Care Center or Emergency Room Smoking is Dangerous to Your Health. Avoid second hand smoke Call the 24-hour hour crisis hotline for domestic abuse at Sandra Mares PA-C Dec 03, 2016 16:08
--- NOTE | 2016-12-03 18:55 | EKG ---
Date Performed: 12/03/2016 Time Performed: 08:47:42 PTAGE: 85 years EKG: Sinus rhythm POSSIBLE RIGHT VENTRICULAR CONDUCTION DELAY BORDERLINE ECG PREVIOUS TRACING : 12/03/2016 06.49 Compared to prior tracing no significant change DOCTOR: Keron Norris Interpretating Date/Time 12/03/2016 18:53:49
--- NOTE | 2016-12-03 19:05 | EKG ---
Date Performed: 12/03/2016 Time Performed: 06:49:39 PTAGE: 85 years EKG: Sinus rhythm POSSIBLE RIGHT VENTRICULAR CONDUCTION DELAY BORDERLINE ECG PREVIOUS TRACING : 12/02/2016 21.41 Compared to prior tracing no significant change DOCTOR: Keron Norris Interpretating Date/Time 12/03/2016 19:04:41
--- NOTE | 2016-12-03 19:52 | EKG ---
Date Performed: 12/02/2016 Time Performed: 21:41:13 PTAGE: 85 years EKG: Sinus rhythm POSSIBLE RIGHT VENTRICULAR CONDUCTION DELAY BORDERLINE ECG PREVIOUS TRACING : 02/19/2014 16.59 Compared to prior tracing no significant change DOCTOR: Keron Norris Interpretating Date/Time 12/03/2016 19:52:01
[2016-12-03] MEDS ORDERED: MIRTAZAPINE 15 MG TAB PO SCH (21:00)
[2016-12-03] MEDS ORDERED: MONTELUKAST SODIUM 10 MG TAB PO SCH (21:00)
[2016-12-04] MEDS ORDERED: LOSARTAN 50 MG TAB PO SCH (09:00)
--- NOTE | 2016-12-05 16:39 | HM ---
Date Performed: 12/04/2016 Time Performed: 12:11:00 HOOKUP DATE: 12/04/16 12:11:00 PM Fri ANALYSIS START TIME: 12/04/2016 12:16:00 PM ANALYSIS END TIME: 12/05/2016 6:07:10 AM PATIENT AGE: 85 PATIENT HEIGHT: 67 PATIENT WEIGHT: 182 DRUG LIST PATIENT DIAGNOSIS: syncope TEST NARRATIVE: The patient's average heart rate was 83 BPM. No episodes of tachycardia wer e noted. No episodes of bradycardia were noted. No pauses exceeding 2.0 seconds were noted. 12 ventricular ectopics, which represented < 1% of the total beat count, were noted. The highest victorina tricular ectopic frequency occurred from 12:00 PM to 01:00 PM Fri. During this time 7 VE(s) occurred . Ventricular ectopics were observed as 5 isolated beat(s) and as 1 run(s). 14 supraventricular ectopics, which represented < 1% of the total beat count, were noted. The highest supraventricular e ctopic frequency occurred from 12:00 PM to 01:00 PM Fri. During this time 6 SVE(s) occurred. No episodes of ST depression (defined as -1.0 mm or more) were noted in channel 1. No episodes of ST de pression (defined as -1.0 mm or more) were noted in channel 2. No episodes of ST depression (defined as -1.0 mm or more) were noted in channel 3. TEST INTERPRETATION: Abnormal Holter monitor. The underlying rhythm is Sinus rhythm . One 7 beat run of wide complex tachycardia is recorded, the morphology of which is suggestive of a berrantly conducted supraventricular tachycardia (begins with long-short R-R interval, initial portio n of wide QRS complex similar to initial portion of sinus beat QRS) although nonsustained ventricular tachycardia cannot be ruled out. One 4 beat run of atrial tachycardia is also seen. Signed by : Fausto Galvan
[2017-02-18] MEDS ORDERED: OCUVCAP2 PO (13:33)
[2017-02-18] MEDS ORDERED: PRAV20TA2 PO (13:34)
[2017-02-18] MEDS ORDERED: LATA0.002 EACH EYE (13:34)
[2017-02-18] MEDS ORDERED: VITA10003 PO (13:34)
[2017-03-26] MEDS ORDERED: VITA100018 PO (13:44)
[2017-03-26] MEDS ORDERED: VITA10002 PO (13:45)
[2017-03-26] MEDS ORDERED: DORZ2SOL RIGHT EYE (13:48)
== END 2016-12-03 17:21 | disposition home or self-care (01) ==
LOC: NEPA 20:28 → NEDA 12-03 01:02 → NEDH 12-03 05:02 → NEPGCP 12-03 05:50
PROVIDERS: ADMIT Internal Medicine; ATTEND Internal Medicine
DX: T67.1XXA Heat syncope, initial encounter (principal); I48.0 Paroxysmal atrial fibrillation; R42 Dizziness and giddiness; R61 Generalized hyperhidrosis; I10 Essential (primary) hypertension; J98.11 Atelectasis; F02.80 Dementia in other diseases classified elsewhere, unspecified severity, without behavioral disturbance, psychotic disturbance, mood disturbance, and anxiety; G30.9 Alzheimer's disease, unspecified; J45.909 Unspecified asthma, uncomplicated; Z79.01 Long term (current) use of anticoagulants; Z86.73 Personal history of transient ischemic attack (TIA), and cerebral infarction without residual deficits
CPT/HCPCS: 70450; 71010; 80053; 82550; 82552; 83735; 84484; 85025; 85610; 85730; 93005; 93225; 93226; 93970; 95819; 97161; 99285; G0378; G8987; G8988

== ENCOUNTER 2016-12-23 09:45 | Emergency (ER) | payer MEDICARE, BC ==
[~2016-12-23] VITALS: Ht 170.2 cm; Wt 82.0 kg
[~2016-12-23 09:45] MED LIST changes: -LOSA100T3 PO; +LOSA50TA2 PO
[2016-12-23 09:51] VITALS: BP 157/103; PULSE 76; RESP 16; TEMP 98.8; O2SAT 96
--- NOTE | 2016-12-23 10:03 | PD ---
HPI Chief Complaint: Injury Time Seen by Provider: 09:57 Travel History International Travel<30 days: No Contact w/Intl Traveler<30days: No Traveled to known affect area: No History of Present Illness HPI This is an 86-year-old female who presents to the emergency department with pain in her left hand, constant, mild, associated with some bruising and color control and recovery special tactics her left hand which concerned her. Patient is on Xarelto. She had a fall 1 month ago. She never had an x-ray at the time of the injury. She feels like her hand isn't getting any better so she came to the emergency department. PFSH Past Medical History Hx Anticoagulant Therapy: Yes (XARELTO) AAA: Yes Alzheimer's Disease: Yes ("EARLY") Arthritis: Yes (HANDS) Asthma: Yes Atrial Fibrillation: Yes Heart Rhythm Problems: Yes (A-fib) Cancer: No Cardiovascular Problems: Yes (A FIB, HTN) High Cholesterol: Yes Chemotherapy: No Chest Pain: No Congestive Heart Failure: No COPD: No Cerebrovascular Accident: Yes (CVA AND TIA) Diminished Hearing: No Endocrine: No Glaucoma: Yes Genitourinary: No Hypertension: Yes Immune Disorder: No Inguinal Hernia: Yes Musculoskeletal: No Neurologic: Yes Psychiatric: No Respiratory: Yes Immunizations Current: Yes Pneumonia: Yes Radiation Therapy: No Sleep Apnea: No Influenza Vaccination: Yes PNEUMOCCOCAL Vaccine (Year): 2009 ?: Not Menopausal: Yes : 3 Para: 3 Past Surgical History Abdominal Surgery: Yes (LEFT INGUINAL HERNIA REPAIR) Appendectomy: Yes Eye Surgery: Yes (CATARACTS X2) Gynecologic Surgery: Yes (prolapsed uterus) Hysterectomy: Yes Other Surgery: Yes (2 BREAST BIOPSIES: EACH BREAST "NO MALIGNANCIES") Social History Alcohol Use: No Tobacco Use: No Substance Use: No Allergies-Medications (Allergen,Severity, Reaction): Coded Allergies: No Known Allergies (Verified , 12/23/16) Reported Meds & Prescriptions Reported Meds & Active Scripts Active Losartan-Hydrochlorothiazide 50-12.5 Mg Tab 1 Tab PO DAILY Reported Ambien (Zolpidem Tartrate) 10 Mg Tab 10 Mg PO HS PRN Xarelto (Rivaroxaban) 20 Mg Tab 20 Mg PO DAILY Timoptic Opth Drops (Timolol Opth Drops) 0.5 % Soln 1 Drop EACH EYE BID Centrum (Multiple Vitamins W/ Minerals) 1 Tab 1 Tab PO DAILY Singulair (Montelukast Sodium) 10 Mg Tab 10 Mg PO HS Mirtazapine 30 Mg Tab 30 Mg PO HS Vitamin D-3 (Cholecalciferol) 1,000 Unit Tab 1,000 Units PO DAILY Review of Systems General / Constitutional: No: Fever, Chills Respiratory: No: Cough, Shortness of Breath Physical Exam Narrative GENERAL: Well-appearing, no acute distress, nontoxic SKIN: Warm and dry. HEAD: Atraumatic. Normocephalic. ENT: No nasal bleeding or discharge. Moist mucous membranes MUSCULOSKELETAL: Mild swelling over the volar aspect of the left fourth and fifth metacarpals with palpable cystlike structure, small pea-sized on the left volar hand. NEUROLOGICAL: Awake and alert. No obvious cranial nerve deficits. Motor grossly within normal limits. Normal speech. Vascular: 2+ left radial pulse with normal capillary refill. PSYCHIATRIC: Appropriate mood and affect; insight and judgment normal. Data Data Last Documented VS Vital Signs Date Time Temp Pulse Resp B/P Pulse Ox O2 Delivery O2 Flow Rate FiO2 12/23/16 09:51 98.8 76 16 157/103 96 Orders Hand, Limited (2vws) (12/23/16 ) [facility] Medical Decision Making Medical Screen Exam Complete: Yes Emergency Medical Condition: Yes Interpretation(s) xray: no fracture Differential Diagnosis Fracture, ecchymoses, ganglion cyst Narrative Course This is an 86-year-old female who presents to emergency department having fallen and hit her hand one month ago with persistent swelling and some bruising. On exam she appears to have a ganglion cyst. X-ray was negative for acute fracture. Patient was discharged home and instructed to follow-up with her primary care physician as needed. Diagnosis Primary Impression: Ganglion cyst Patient Instructions: General Instructions Additional Instructions: If you develop increasing pain or swelling return to the emergency room. Med/Other Pt SpecificInfo: No Change to Meds Disposition: 01 DISCHARGE HOME Condition: Stable Michelle Brito MD Dec 23, 2016 10:02
--- NOTE | 2016-12-23 11:10 | RADHPO ---
EXAM DATE/TIME: 12/23/2016 10:38 [facility] COMPARISON: No previous studies available for comparison. INDICATIONS : Fall, complains of pain and a bump on left hand, fifth metacarpal. MEDICAL HISTORY : None. SURGICAL HISTORY : None. ENCOUNTER: Initial ACUITY: 1 month PAIN SCORE: 3/10 LOCATION: Left hand, fifth metacarpal FINDINGS: An acute fracture is not seen. There is some hypertrophic change at the first carpal metacarpal join t. There also appears to be some hypertrophic change at the second DIP joint. No foreign bodies are seen. CONCLUSION: No definite acute abnormality is seen. There is chronic hypertrophic change at the first carpal meta carpal joint and at the second DIP joint. Bud Joaquin MD on December 23, 2016 at 11:03 Board Certified Radiologist. This report was verified electronically.
[2017-02-18] MEDS ORDERED: OCUVCAP2 PO (13:33)
[2017-02-18] MEDS ORDERED: LATA0.002 EACH EYE (13:34)
[2017-02-18] MEDS ORDERED: VITA10003 PO (13:34)
[2017-02-18] MEDS ORDERED: PRAV20TA2 PO (13:34)
[2017-03-26] MEDS ORDERED: VITA100018 PO (13:44)
[2017-03-26] MEDS ORDERED: VITA10002 PO (13:45)
[2017-03-26] MEDS ORDERED: DORZ2SOL RIGHT EYE (13:48)
== END 2016-12-23 11:26 | disposition home or self-care (01) ==
LOC: PHED 09:45
DX: M67.442 Ganglion, left hand (principal); J45.909 Unspecified asthma, uncomplicated; I48.91 Unspecified atrial fibrillation; I10 Essential (primary) hypertension; W19.XXXA Unspecified fall, initial encounter; Z79.01 Long term (current) use of anticoagulants
CPT/HCPCS: 73120; 99283

== ENCOUNTER → 2017-01-25 | Outpatient (CLI) | payer MEDICARE, BC ==
[~2017-01-25] MED LIST changes: +DORZ2SOL RIGHT EYE; +LATA0.002 EACH EYE; +OCUVCAP2 PO; +PRAV20TA2 PO; +VITA100018 PO; +VITA10002 PO
[2017-01-25 13:59] LABS: ALKALINE PHOSPHATASE 88 U/L (45-117); ALT (GPT) 23 U/L (10-53); ANION GAP 4 MEQ/L (5-15); AST (GOT) 16 U/L (15-37); BICARBONATE 31.1 MEQ/L (21.0-32.0); BLOOD UREA NITROGEN 17 MG/DL (7-18); CHLORIDE 103 MEQ/L (98-107); GLOMERULAR FILTRATION RATE 91 ML/MIN (>89); GLUCOSE,FASTING 88 MG/DL (74-99); HDL CHOLESTEROL 73.6 MG/DL (40.0-60.0); LDL CHOLESTEROL 74 MG/DL (0-99); POTASSIUM 4.3 MEQ/L (3.5-5.1); SODIUM (NA) 138 MEQ/L (136-145); TOTAL BILIRUBIN ADULT 0.5 MG/DL (0.2-1.0)
== END ==
LOC: PLAB 08:28
PROVIDERS: ATTEND Family Medicine
DX: I48.91 Unspecified atrial fibrillation (principal); E78.5 Hyperlipidemia, unspecified; I10 Essential (primary) hypertension; Z79.01 Long term (current) use of anticoagulants
CPT/HCPCS: 36415; 80053; 80061

== ENCOUNTER → 2017-02-18 | Outpatient (CLI) | payer MEDICARE, BC ==
[2017-02-18 13:36] LABS: AUTOMATED NEUTROPHIL # 3.8 TH/MM3 (1.8-7.7); BASOPHIL % 0.4 % (0.0-2.0); EOSINOPHIL # 0.2 TH/MM3 (0-0.4); EOSINOPHIL % 3.1 % (0.0-4.0); HEMATOCRIT 37.7 % (35.0-46.0); HEMO FLAGS DIFF FINAL; LYMPHOCYTE # 1.1 TH/MM3 (1.0-4.8); MEAN CELL VOLUME 90.2 FL (80.0-100.0); MEAN CORPUSCULAR HEMOGLOBIN 30.2 PG (27.0-34.0); MEAN CORPUSCULAR HGB CONC 33.5 % (32.0-36.0); MONO % 9.9 % (0.0-8.0); NEUT % 67.6 % (16.0-70.0); PLATELET COUNT 353 TH/MM3 (150-450); RED BLOOD COUNT 4.18 MIL/MM3 (4.00-5.30); RED CELL DISTRIBUTION WIDTH 14.4 % (11.6-17.2); WHITE BLOOD COUNT 5.6 TH/MM3 (4.0-11.0)
[2017-02-18 13:55] LABS: POTASSIUM 4.4 MEQ/L (3.5-5.1)
[2017-02-18 14:21] LABS: BLOOD, URINE NEG (NEG); COMMENT (UR) CULT NOT INDICATED; CULTURE IF INDICATED CULT NOT INDICATED; GLUCOSE,URINE NEG (NEG); KETONE, URINE NEG (NEG); NITRITE,URINE NEG (NEG); PH, URINE 6.5 (5.0-8.5); SQUAMOUS EPITHELIAL CELL URINE 1 /hpf (0-5); URINE COLOR YELLOW (YELLW/STRAW)
--- NOTE | 2017-02-18 14:47 | RADRPT ---
EXAM DATE/TIME: 02/18/2017 14:16 [facility] COMPARISON: CHEST SINGLE AP, December 02, 2016, 21:37. INDICATIONS : Cough. Evaluate for pneumonia, pneumothorax, or communicable disease. Pre op for pelvic surgery. MEDICAL HISTORY : Hypertension. CVA. Afib. Asthma. SURGICAL HISTORY : Appendectomy. Hysterectomy. ENCOUNTER: Initial ACUITY: 1 day PAIN SCORE: 0/10 LOCATION: Bilateral chest FINDINGS: PA and lateral views of the chest demonstrate the lungs to be symmetrically aerated without evidence of mass, infiltrate or effusion. The cardiomediastinal contours are unremarkable. Osseous structure s are intact.CONCLUSION: No acute disease. Ibrahima Williamson MD on February 18, 2017 at 14:45 Board Certified Radiologist. This report was verified electronically.
--- NOTE | 2017-02-19 12:06 | EKG ---
Date Performed: 02/18/2017 Time Performed: 13:23:50 PTAGE: 86 years EKG: Sinus rhythm BORDERLINE LEFT AXIS DEVIATION LOW QRS VOLTAGE IN PRECORDIAL LEADS POSSIBLE RIGHT VENTRICULAR CONDUC TION DELAY BORDERLINE ECG I suspect there may be lead reversal in the precordial leads and would sugg est repeat electrocardiogram. NO PREVIOUS TRACING DOCTOR: Iban Moreno Interpretating Date/Time 02/19/2017 12:04:55
== END ==
LOC: CPRE 12:55
PROVIDERS: ATTEND Obstetrics & Gynecology
DX: Z01.812 Encounter for preprocedural laboratory examination (principal); Z01.810 Encounter for preprocedural cardiovascular examination; Z01.811 Encounter for preprocedural respiratory examination; N90.7 Vulvar cyst; R94.31 Abnormal electrocardiogram [ECG] [EKG]
CPT/HCPCS: 36415; 71020; 80051; 81001; 85025; 93005

== ENCOUNTER → 2017-03-26 | Outpatient (CLI) | payer MEDICARE, BC ==
[~2017-03-26] MED LIST changes: -MULT-6 PO
[2017-03-26 13:44] LABS: AUTOMATED NEUTROPHIL # 4.9 TH/MM3 (1.8-7.7); BASOPHIL % 0.2 % (0.0-2.0); EOSINOPHIL # 0.1 TH/MM3 (0-0.4); EOSINOPHIL % 1.7 % (0.0-4.0); HEMATOCRIT 39.7 % (35.0-46.0); HEMO FLAGS DIFF FINAL; LYMPH % 15.7 % (9.0-44.0); LYMPHOCYTE # 1.1 TH/MM3 (1.0-4.8); MEAN CELL VOLUME 90.7 FL (80.0-100.0); MEAN CORPUSCULAR HEMOGLOBIN 29.7 PG (27.0-34.0); MEAN CORPUSCULAR HGB CONC 32.8 % (32.0-36.0); MONO % 9.4 % (0.0-8.0); PLATELET COUNT 348 TH/MM3 (150-450); RED BLOOD COUNT 4.38 MIL/MM3 (4.00-5.30); RED CELL DISTRIBUTION WIDTH 14.8 % (11.6-17.2); WHITE BLOOD COUNT 6.7 TH/MM3 (4.0-11.0)
[2017-03-26 13:52] LABS: BACTERIA, URINE RARE /hpf; BLOOD, URINE NEG (NEG); COMMENT (UR) CULT NOT INDICATED; CULTURE IF INDICATED CULT NOT INDICATED; GLUCOSE,URINE NEG (NEG); KETONE, URINE NEG (NEG); NITRITE,URINE NEG (NEG); PH, URINE 7.5 (5.0-8.5); SQUAMOUS EPITHELIAL CELL URINE 2 /hpf (0-5); URINE COLOR YELLOW (YELLW/STRAW)
== END ==
LOC: CPRE 13:05
PROVIDERS: ATTEND Obstetrics & Gynecology
DX: Z01.812 Encounter for preprocedural laboratory examination (principal); N90.7 Vulvar cyst
CPT/HCPCS: 36415; 81001; 85025

== ENCOUNTER → 2017-03-30 | Day surgery (SDC) | payer MEDICARE, BC ==
--- NOTE | 2017-03-29 17:52 | MH ---
cc: ANTHONY DORMAN DATE OF ADMISSION 03/30/2017 DATE OF 1930 ADMISSION DIAGNOSIS Enlarging sebaceous cyst on the vulva. HISTORY OF PRESENT ILLNESS The patient is an 86-year-old , white female, para 3-0-0-3 with history of enlarging sebaceous cyst on the vulva over the last 8 years. She is now admitted for surgical excision. PAST MEDICAL HISTORY Previous surgery include: 1. Breast biopsy. 2. Appendectomy. 3. TVH in 1959 with repair. MEDICATIONS She will bring a list. ALLERGIES None. TRANSFUSIONS None. OBSTETRICAL HISTORY Three vaginal deliveries. SOCIAL HISTORY Retired, . Alcohol, tobacco and drugs none. PHYSICAL EXAMINATION GENERAL: This is a well-nourished, well-developed, white female. VITAL SIGNS: Stable. HEENT: Examination is normal. CHEST: Clear. HEART: Regular rate. ABDOMEN: Benign. PELVIC: The vulva shows multiple sebaceous cysts primarily right side. Vagina is atrophic. Cervix uterus absent. Adnexa nonpalpable. ASSESSMENT As above. PLAN She is now admitted for vulvar excision of cysts. While in the office I explained the procedures, the risks and benefits and complications and recurrence. The patient would like to proceed. MD WILBUR Harris/KK /5:18 PM /5:49 PM MTDChristiane
[~2017-03-30] VITALS: Ht 170.2 cm; Wt 81.1 kg
[~2017-03-30] MED LIST changes: +ACETAMINOPHEN 1000 MG/100 ML VIAL IV SCH; +BACITRACIN TOP OINT 15 GM TUBE ONE; +BUPIVACAINE/EPINEPHRINE 0.5% PF 30 ML VIAL ONE; +CHLORHEXIDINE GLUCONATE 2 % 1 PACK (2 CLOTHS) TOPICAL PRN; +DEXAMETHASONE SOD PHOS 4 MG/ML VIAL ONE; +DO NOT ADM ANY ANTICOAGULANT DRUGS PRN; +FAMOTIDINE 20 MG/2 ML VIAL ONE; +INSULIN HUMAN REGULAR 1,000 UNITS/10 ML VIAL SQ PRN; +KETOROLAC TROMETHAMINE 60 MG/2 ML (IM) VIAL IM ONE; +LACTATED RINGER'S 1000 ML IV PRN; +METOCLOPRAMIDE HCL 10 MG/2 ML VIAL IV PRN; +METOPROLOL TARTRATE 25 MG TAB PO PRN; +MIDAZOLAM HCL 2 MG/2 ML VIAL ONE; +ONDANSETRON HCL 4 MG/2 ML VIAL IV PUSH ONE; +POVIDONE IODINE 5% (ANTISEPSIS KIT) 4 APPLICATIONS EACH NARE PRN; +PROPOFOL 200 MG/20 ML AMP IV ONE; +SODIUM CHLORID 0.9% 500 ML IV PRN; -VITA10003 PO; +ceFAZolin 1,000 MG/NS 100 ML IV SCH; +fentaNYL CITRATE 250 MCG/5 ML AMP ONE; +oxyCODONE/ACETAMINOPHEN 5 MG/325 MG TAB PO PRN
[2017-03-30 06:02] VITALS: BP 140/91; PULSE 88; RESP 18; TEMP 97.7; O2SAT 96
[2017-03-30 10:00] VITALS: BP 138/74; PULSE 79; RESP 16; TEMP 97.6; O2SAT 95
--- NOTE | 2017-03-31 08:06 | MP ---
cc: ANTHONY DORMAN DATE OF SURGERY 03/30/2017 PREOPERATIVE DIAGNOSIS Multiple enlarging sebaceous cyst on the vulva POSTOPERATIVE DIAGNOSIS Multiple enlarging sebaceous cyst on the vulva PROCEDURE Partial right simple vulvectomy ANESTHESIA General LMA SURGEON Anthony Dorman MD CROWNING INSPECTOR Angelia Wheatley ESTIMATED BLOOD LOSS Less than 10 cc FLUIDS Half liter of crystalloid. OBJECTIVE FINDINGS Following the induction of adequate general LMA anesthesia, the patient was prepped and draped supine on the operating table in the dorsolithotomy position in the usual sterile fashion. The cysts were at least five on the right side. These were removed in toto with an elliptical incision that was about 4 cm in length and about 1.5 cm in width. This allowed excision of all the visible cysts in one specimen. After removal, the wound was infiltrated with 10 cc of Marcaine 0.5% plus epinephrine. Subcutaneous tissue was closed with sutures of 3-0 Vicryl and the skin with a running subcuticular 3-0 Monocryl. Dermabond was applied. All counts were correct and the patient was awakened and taken to the recovery room in good shape. MD WILBUR Harris/ALFREDA /8:34 AM /8:03 AM
== END | disposition home or self-care (01) ==
LOC: HSDC 05:22
PROVIDERS: ATTEND Obstetrics & Gynecology
DX: N90.7 Vulvar cyst (principal); I10 Essential (primary) hypertension; E78.5 Hyperlipidemia, unspecified; F32.9 Major depressive disorder, single episode, unspecified; J45.909 Unspecified asthma, uncomplicated; Z86.73 Personal history of transient ischemic attack (TIA), and cerebral infarction without residual deficits
CPT/HCPCS: 56620; 88304; J0131; J0690; J1100; J1885; J2250; J2405; J3010; J7120; 88305

== ENCOUNTER 2017-08-08 14:37 | Inpatient (IN) | payer MEDICARE, BC ==
[2017-08-08] VITALS (8 sets, daily range): BP systolic 113–138; BP diastolic 57–87; PULSE 88–103; RESP 18–24; TEMP 96.8–97.5; O2SAT 83–97
[~2017-08-08] VITALS: Ht 170.2 cm; Wt 90.4 kg
[~2017-08-08 14:37] MED LIST changes: -ACETAMINOPHEN 1000 MG/100 ML VIAL IV SCH; -BACITRACIN TOP OINT 15 GM TUBE ONE; -BUPIVACAINE/EPINEPHRINE 0.5% PF 30 ML VIAL ONE; -CHLORHEXIDINE GLUCONATE 2 % 1 PACK (2 CLOTHS) TOPICAL PRN; -DEXAMETHASONE SOD PHOS 4 MG/ML VIAL ONE; -DO NOT ADM ANY ANTICOAGULANT DRUGS PRN; -FAMOTIDINE 20 MG/2 ML VIAL ONE; -INSULIN HUMAN REGULAR 1,000 UNITS/10 ML VIAL SQ PRN; -KETOROLAC TROMETHAMINE 60 MG/2 ML (IM) VIAL IM ONE; -LACTATED RINGER'S 1000 ML IV PRN; -METOCLOPRAMIDE HCL 10 MG/2 ML VIAL IV PRN; -METOPROLOL TARTRATE 25 MG TAB PO PRN; -MIDAZOLAM HCL 2 MG/2 ML VIAL ONE; -ONDANSETRON HCL 4 MG/2 ML VIAL IV PUSH ONE; -POVIDONE IODINE 5% (ANTISEPSIS KIT) 4 APPLICATIONS EACH NARE PRN; -PROPOFOL 200 MG/20 ML AMP IV ONE; -SODIUM CHLORID 0.9% 500 ML IV PRN; -ceFAZolin 1,000 MG/NS 100 ML IV SCH; -fentaNYL CITRATE 250 MCG/5 ML AMP ONE; -oxyCODONE/ACETAMINOPHEN 5 MG/325 MG TAB PO PRN
--- NOTE | 2017-08-08 15:07 | PD ---
HPI Chief Complaint: Respiratory Symptoms Time Seen by Provider: 14:53 Travel History International Travel<30 days: Yes Contact w/Intl Traveler<30days: Yes Name of Country Traveled to: [place] 08/07/17 Traveled to known affect area: Yes History of Present Illness HPI Patient comes in with family complaining of shortness of breath, cough, and just feeling lousy all over. Patient just got back from a cruise yesterday went to the ER was diagnosed with influenza A. Patient was started on Tamiflu, given an albuterol inhaler, and a prescription for 800 mg ibuprofen. Patient is supposed to use CPAP at night but is unable tolerate it secondary to current symptoms.. Patient is reportedly coughing up yellow phlegm. Family has given patient Tylenol instead of the ibuprofen at the advice primary care doctor secondary to patient being on Xarelto. Patient denies anything making her symptoms better. Laying down flat makes her symptoms worse. Denies any chest pain, nausea, vomiting, diarrhea, no pain, or headaches. Family is concerned as patient's just 2 days ago while on the cruise ship and started off with similar symptoms. PFSH Past Medical History Hx Anticoagulant Therapy: Yes (XARELTO) AAA: Yes Alzheimer's Disease: Yes ("EARLY") Arthritis: Yes (HANDS) Asthma: Yes Atrial Fibrillation: Yes Heart Rhythm Problems: Yes (A-fib) Cancer: No Cardiovascular Problems: Yes (A FIB) High Cholesterol: Yes Chemotherapy: No Chest Pain: No Congestive Heart Failure: No COPD: No Cerebrovascular Accident: Yes (X3) Diabetes: No Diminished Hearing: No Endocrine: No Glaucoma: Yes Genitourinary: No Hepatitis: No Hiatal Hernia: No Hypertension: Yes Immune Disorder: No Inguinal Hernia: Yes Musculoskeletal: Yes (ARTHRITIS HIP AND HANDS) 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, BALANCE ) Psychiatric: No Reproductive: No Respiratory: Yes (SOB AT TIMES, ALLERGIES) Immunizations Current: Yes Pneumonia: Yes Radiation Therapy: No Sleep Apnea: No Thyroid Disease: No PNEUMOCCOCAL Vaccine (Year): 2009 Menopausal: Yes : 3 Para: 3 Past Surgical History Abdominal Surgery: Yes (LEFT INGUINAL HERNIA REPAIR) AICD: No Appendectomy: Yes Cardiac Surgery: No Ear Surgery: No Endocrine Surgery: No Eye Surgery: Yes (CATARACTS X2) Genitourinary Surgery: Yes (REPAIR BLADDER PROLAPSE) Gynecologic Surgery: Yes (HYSTERECTOMY) Hysterectomy: Yes Joint Replacement: No Oral Surgery: No Pacemaker: No Thoracic Surgery: Yes (2 BREAST BIOPSIES) Other Surgery: Yes (2 BREAST BIOPSIES: EACH BREAST "NO MALIGNANCIES") Social History Alcohol Use: No Tobacco Use: No Substance Use: No Allergies-Medications (Allergen,Severity, Reaction): Coded Allergies: mold (Unverified Allergy, Severe, Shortness of Breath, 05/25/17) Reported Meds & Prescriptions Reported Meds & Active Scripts Active Losartan-Hydrochlorothiazide 50-12.5 Mg Tab 1 Tab PO DAILY Reported Dorzolamide Opth Drops (Dorzolamide HCl) 2% Soln 1 Drop RIGHT EYE BID Vitamin B-12 (Cyanocobalamin) 1,000 Mcg Tab 1,000 Mcg PO DAILY Vitamin D3 (Cholecalciferol) 1,000 Unit Tab 1,000 Units PO DAILY Latanoprost Opth Drops (Latanoprost) 0.005% Drops 1 Drop EACH EYE HS Refrigerate until opened. Pravastatin 20 Mg Tab 20 Mg PO HS Ocuvite Adult 50+ (Multiple Vitamins W/ Minerals) 1 Cap 1 Cap PO DAILY Ambien (Zolpidem Tartrate) 10 Mg Tab 5 Mg PO HS PRN Xarelto (Rivaroxaban) 20 Mg Tab 20 Mg PO DAILY Timoptic Opth Drops (Timolol Opth Drops) 0.5 % Soln 1 Drop EACH EYE BID Singulair (Montelukast Sodium) 10 Mg Tab 10 Mg PO HS Mirtazapine 30 Mg Tab 30 Mg PO HS Review of Systems Except as stated in HPI: all other systems reviewed are Neg Physical Exam Narrative GENERAL: Well-developed, overly nourished, in no acute distress, and ill appearing, but nontoxic. SKIN: Focused skin assessment warm and dry. HEAD: Atraumatic. Normocephalic. EYES: Pupils equal and round. EOMI. No scleral icterus. No injection or drainage. ENT: No nasal bleeding or discharge. Mucous membranes pink and moist. NECK: Trachea midline. Supple. No nuclear rigidity. CARDIOVASCULAR: Regular rate and rhythm. No murmur appreciated. RESPIRATORY: No accessory muscle use. No respiratory distress. Wheezing throughout with some rhonchi noted. Hacking cough on exam. MUSCULOSKELETAL: No obvious deformities. No clubbing. No cyanosis. No edema. Full range of motion. NEUROLOGICAL: Awake and alert. No obvious cranial nerve deficits. Motor grossly within normal limits. Normal speech. PSYCHIATRIC: Appropriate mood and affect; insight and judgment normal. Data Data Last Documented VS Vital Signs Date Time Temp Pulse Resp B/P (MAP) Pulse Ox O2 Delivery O2 Flow Rate FiO2 08/08/17 16:10 94 21 115/60 (78) 97 Nasal Cannula 2.00 08/08/17 14:41 97.5 Orders Orders Iv Access Insert/Monitor (08/08/17 15:01) Ecg Monitoring (08/08/17 15:01) Oximetry (08/08/17 15:01) Oxygen Administration (08/08/17 15:01) Chest, Single Ap (08/08/17 15:01) Sodium Chloride 0.9% Flush (Ns Flush) (08/08/17 15:15) Albuterol-Ipratropium Neb (Duoneb Neb) (08/08/17 15:15) Resp Mdi/Instruction (08/08/17 15:01) Basic Metabolic Panel (Bmp) (08/08/17 15:25) Complete Blood Count With Diff (08/08/17 15:25) Lactic Acid Sepsis Protocol (08/08/17 15:25) Blood Culture (08/08/17 15:25) Sodium Chloride 0.9% Flush (Ns Flush) (08/08/17 15:30) Ceftriaxone Inj (Rocephin Inj) (08/08/17 15:30) Azithromycin Inj (Zithromax Inj) (08/08/17 15:30) Place In Observation (08/08/17 ) Vital Signs (Adult) NIALL.Q4H (08/08/17 17:07) Activity Oob With Assistance (08/08/17 17:07) Intake + Output 06,14,22 (08/08/17 17:07) Resp Oxygen Chris C Titrat 1-4 L (08/08/17 ) Sodium Chloride 0.9% Flush (Ns Flush) (08/08/17 21:00) Admit Order (Ed Use Only) (08/08/17 17:13) Labs Laboratory Tests Test 08/08/17 15:15 08/08/17 16:24 White Blood Count 8.4 TH/MM3 Red Blood Count 4.17 MIL/MM3 Hemoglobin 12.7 GM/DL Hematocrit 38.0 % Mean Corpuscular Volume 91.0 FL Mean Corpuscular Hemoglobin 30.5 PG Mean Corpuscular Hemoglobin Concent 33.5 % Red Cell Distribution Width 14.5 % Platelet Count 224 TH/MM3 Mean Platelet Volume 6.7 FL Neutrophils (%) (Auto) 84.9 % Lymphocytes (%) (Auto) 6.4 % Monocytes (%) (Auto) 8.6 % Eosinophils (%) (Auto) 0.0 % Basophils (%) (Auto) 0.1 % Neutrophils # (Auto) 7.1 TH/MM3 Lymphocytes # (Auto) 0.5 TH/MM3 Monocytes # (Auto) 0.7 TH/MM3 Eosinophils # (Auto) 0.0 TH/MM3 Basophils # (Auto) 0.0 TH/MM3 CBC Comment DIFF FINAL Differential Comment Blood Urea Nitrogen 8 MG/DL Creatinine 0.34 MG/DL Random Glucose 107 MG/DL Calcium Level 7.9 MG/DL Sodium Level 123 MEQ/L Potassium Level 4.1 MEQ/L Chloride Level 87 MEQ/L Carbon Dioxide Level 27.0 MEQ/L Anion Gap 9 MEQ/L Estimat Glomerular Filtration Rate 182 ML/MIN Lactic Acid Level 0.9 mmol/L MDM Medical Decision Making Medical Screen Exam Complete: Yes Emergency Medical Condition: Yes Interpretation(s) Laboratory Tests Test 08/08/17 15:15 08/08/17 16:24 White Blood Count 8.4 TH/MM3 (4.0-11.0) Red Blood Count 4.17 MIL/MM3 (4.00-5.30) Hemoglobin 12.7 GM/DL (11.6-15.3) Hematocrit 38.0 % (35.0-46.0) Mean Corpuscular Volume 91.0 FL (80.0-100.0) Mean Corpuscular Hemoglobin 30.5 PG (27.0-34.0) Mean Corpuscular Hemoglobin Concent 33.5 % (32.0-36.0) Red Cell Distribution Width 14.5 % (11.6-17.2) Platelet Count 224 TH/MM3 (150-450) Mean Platelet Volume 6.7 FL (7.0-11.0) Neutrophils (%) (Auto) 84.9 % (16.0-70.0) Lymphocytes (%) (Auto) 6.4 % (9.0-44.0) Monocytes (%) (Auto) 8.6 % (0.0-8.0) Eosinophils (%) (Auto) 0.0 % (0.0-4.0) Basophils (%) (Auto) 0.1 % (0.0-2.0) Neutrophils # (Auto) 7.1 TH/MM3 (1.8-7.7) Lymphocytes # (Auto) 0.5 TH/MM3 (1.0-4.8) Monocytes # (Auto) 0.7 TH/MM3 (0-0.9) Eosinophils # (Auto) 0.0 TH/MM3 (0-0.4) Basophils # (Auto) 0.0 TH/MM3 (0-0.2) CBC Comment DIFF FINAL Differential Comment Blood Urea Nitrogen 8 MG/DL (7-18) Creatinine 0.34 MG/DL (0.50-1.00) Random Glucose 107 MG/DL (74-106) Calcium Level 7.9 MG/DL (8.5-10.1) Sodium Level 123 MEQ/L (136-145) Potassium Level 4.1 MEQ/L (3.5-5.1) Chloride Level 87 MEQ/L (98-107) Carbon Dioxide Level 27.0 MEQ/L (21.0-32.0) Anion Gap 9 MEQ/L (5-15) Estimat Glomerular Filtration Rate 182 ML/MIN (>89) Lactic Acid Level 0.9 mmol/L (0.4-2.0) Last Impressions Chest X-Ray 08/08/17 1501 Signed Impressions: Service Date/Time: Tuesday, August 08, 2017 15:03 - CONCLUSION: 1. New patchy opacity in the left lung base of concern for early pneumonia. Jacobo Mora MD Differential Diagnosis Influenza, pneumonia, metabolic disturbance, sepsis, other Narrative Course Patient was seen and examined. Initial radiological studies an nebulizer treatment was ordered. After reviewing chest x-ray additional laboratory orders were placed and patient was started on IV antibiotics for pneumonia. Discussed patient with Dr. Myers, who is in agreement with plan of care and disposition. Discussed all findings and plan of care with patient, who is agreeable for admission. All questions were answered. Discussed patient with the residents who are agreeable to admit the patient. Patient remains stable throughout ED course. Physician Communication Physician Communication [phone] Maldonado, resident on-call for Dr. Gusman, who is agreeable to admit the patient. Diagnosis Primary Impression: Pneumonia Qualified Codes: J18.1 - Lobar pneumonia, unspecified organism Additional Impressions: Influenza Hyponatremia Admitting Information Admitting Physician Requests: Admit Condition: Stable Adam Cavazos Aug 08, 2017 15:07
[2017-08-08] MEDS ORDERED: RESP: ALBUTEROL 2.5 MG/IPRATROPIUM 0.5 MG NEB (SCH) INH ONE (15:15)
[2017-08-08] MEDS ORDERED: SODIUM CHLORIDE 0.9% FLUSH 10 ML FLUSH IVF PRN ×2 (15:15→15:30)
--- NOTE | 2017-08-08 15:20 | RADRPT ---
EXAM DATE/TIME: 08/08/2017 15:03 [facility] COMPARISON: CHEST PA & LAT, February 18, 2017, 14:16. CHEST SINGLE AP, December 02, 2016, 21:37. INDICATIONS : Short of breath, cough MEDICAL HISTORY : Hypertension. CVA. Afib. Asthma SURGICAL HISTORY : Appendectomy. Hysterectomy ENCOUNTER: Initial ACUITY: 4 - 6 days PAIN SCORE: 0/10 LOCATION: chest FINDINGS: A single AP erect portable view of the chest was obtained and demonstrates new mild patchy opacity at the left lung base. The right lung base is clear with mild scarring. The heart size is within normal limits with no perihilar edema. The bony thorax is intact. There are multiple overlying electrocardi ogram leads. CONCLUSION: 1. New patchy opacity in the left lung base of concern for early pneumonia. Jacobo Mora MD on August 08, 2017 at 15:18 Board Certified Radiologist. This report was verified electronically.
[2017-08-08] MEDS ORDERED: cefTRIAXone INJ 1,000 MG in SODIUM CHLORIDE 0.9% INJ 100 ML IV ONE (15:30)
[2017-08-08] MEDS ORDERED: AZITHROMYCIN INJ 500 MG in SODIUM CHLOR 0.9% 250 ML INJ 250 ML IV ONE (15:30)
--- NOTE | 2017-08-08 15:42 | PD ---
Physical Exam Date Seen by Provider: Aug 08, 2017 Narrative Cough and shortness of breath Data Data Last Documented VS Vital Signs Date Time Temp Pulse Resp B/P (MAP) Pulse Ox O2 Delivery O2 Flow Rate FiO2 08/08/17 15:17 Room Air 08/08/17 15:16 97 2.00 08/08/17 15:10 93 24 113/57 (75) 08/08/17 14:41 97.5 Orders Orders Iv Access Insert/Monitor (08/08/17 15:01) Ecg Monitoring (08/08/17 15:) Oximetry (08/08/17 15:01) Oxygen Administration (08/08/17 15:01) Chest, Single Ap (08/08/17 15:) Sodium Chloride 0.9% Flush (Ns Flush) (08/08/17 15:15) Albuterol-Ipratropium Neb (Duoneb Neb) (08/08/17 15:15) Resp Mdi/Instruction (08/08/17 15:01) Basic Metabolic Panel (Bmp) (08/08/17 15:25) Complete Blood Count With Diff (08/08/17 15:25) Lactic Acid Sepsis Protocol (08/08/17 15:25) Blood Culture (08/08/17 15:25) Sodium Chloride 0.9% Flush (Ns Flush) (08/08/17 15:30) Ceftriaxone Inj (Rocephin Inj) (08/08/17 15:30) Azithromycin Inj (Zithromax Inj) (08/08/17 15:30) MDM Supervised Visit with VERONIKA: Yes Narrative Course I, Dr. Myers, have reviewed the advance practice practitioner's documentation and am in agreement, met with the patient face to face, made the diagnosis, and the medical decision making was done by me. *My assessment and Findings: Patient is awake and alert and does not appear to be in any acute respiratory distress at this time. She is on oxygen. Her initial room air saturation was 83%. Her chest x-ray shows a left lower lobe infiltrate. She will be admitted to the hospital for further treatment. Please see Kal Cavazos PA-C's note for results of laboratory and radiographic evaluation, ED course, final diagnosis and disposition Marlene Myers MD Aug 08, 2017 15:42
[2017-08-08 16:43] LABS: AUTOMATED NEUTROPHIL # 7.1 TH/MM3 (1.8-7.7); BASOPHIL % 0.1 % (0.0-2.0); HEMOGLOBIN 12.7 GM/DL (11.6-15.3); LYMPH % 6.4 % (9.0-44.0); LYMPHOCYTE # 0.5 TH/MM3 (1.0-4.8); MEAN CORPUSCULAR HEMOGLOBIN 30.5 PG (27.0-34.0); MEAN CORPUSCULAR HGB CONC 33.5 % (32.0-36.0); MEAN PLATELET VOLUME 6.7 FL (7.0-11.0); MONO % 8.6 % (0.0-8.0); MONOCYTE # 0.7 TH/MM3 (0-0.9); NEUT % 84.9 % (16.0-70.0); PLATELET COUNT 224 TH/MM3 (150-450); RED BLOOD COUNT 4.17 MIL/MM3 (4.00-5.30); RED CELL DISTRIBUTION WIDTH 14.5 % (11.6-17.2); WHITE BLOOD COUNT 8.4 TH/MM3 (4.0-11.0)
[2017-08-08 17:00] LABS: CALCIUM 7.9 MG/DL (8.5-10.1); CREATININE 0.34 MG/DL (0.50-1.00)
[2017-08-08] MEDS ORDERED: NALOXONE HCL 0.4 MG/ML AMP IV PUSH PRN (17:45)
[2017-08-08] MEDS ORDERED: SENNOSIDES 8.6 MG TAB PO PRN (17:45)
[2017-08-08] MEDS ORDERED: LACTULOSE SYRUP 20 GM/30 ML CUP PO PRN (17:45)
[2017-08-08] MEDS ORDERED: BISACODYL 10 MG SUPP RECTAL PRN (17:45)
[2017-08-08] MEDS ORDERED: ACETAMINOPHEN 325 MG TAB PO PRN (17:45)
[2017-08-08] MEDS ORDERED: MAGNESIUM HYDROXIDE SUSP 30 ML CUP PO PRN (17:45)
[2017-08-08] MEDS ORDERED: ONDANSETRON HCL 4 MG/2 ML VIAL IVP PRN (17:45)
--- NOTE | 2017-08-08 18:21 | HHI.HP ---
[facility] Service Family Medicine Primary Care Physician Terry Hernandez MD Admission Diagnosis pneumonia, influenza Diagnoses: International Travel<30 Days: Yes Contact w/Intl Traveler<30days: Yes Name of [facility] Known Affected Area: Yes History of Present Illness Patient is a 86 year old female who has a history of Asthma, Atrial fibrillation , and recently diagnosed influenza who came to ED for evaluation of congestion, cough, aches all over, pink-tinged sputum. Symptoms first started on the cruise ship last week. No shortness of breath, no chest pain, no pleuritic pain, no stomach pain or diarrhea. Some nausea noted. 08/04. Cruise last week, he on ship. He was found unconscious in the cabin. Patient had sick bay evaluation while on ship as well and it was noted that sodium was low on the ship. Got off at [facility] 08/07, went to nearby hospital for evaluation and she was diagnosed with influenza Type A there. She was started on Tamiflu yesterday afternoon. She was cleared to return home to [place]. She has had decreased appetite and decreased fluid intake. Dr. Boone her PCP evaluated her and gave her some prescriptions when she arrived home. She wasn't feeling better so her stepdaughter and sister decided pt needed to get to the ED. Of note, patient did not get flu shot yet this year. Review of Systems Constitutional: COMPLAINS OF: Change in appetite, DENIES: Fever, Chills Eyes: DENIES: Blurred vision, Diplopia Ears, nose, mouth, throat: DENIES: Tinnitus, Throat pain, Ear Pain, Sinus Pain Respiratory: COMPLAINS OF: Cough, Sputum production, DENIES: Hemoptysis, Shortness of breath Cardiovascular: COMPLAINS OF: Lower Extremity Edema (chronic L>R), DENIES: Chest pain, Palpitations Gastrointestinal: COMPLAINS OF: Nausea, DENIES: Abdominal pain, Black stools, Bloody stools, Constipation, Diarrhea, Vomiting Genitourinary: DENIES: Urinary frequency, Urgency, Dysuria Musculoskeletal: COMPLAINS OF: Muscle aches, DENIES: Joint Swelling, Neck pain Integumentary: DENIES: Pruritus, Rash Hematologic/lymphatic: DENIES: Bruising, Lymphadenopathy Neurologic: COMPLAINS OF: Poor Balance (uses walker ), DENIES: Headache Psychiatric: DENIES: Anxiety, Depression Past Family Social History Past Medical History Afib Strokes x 3 Glaucoma Macular degeneration MANNY - uses CPAP HL HTN Asthma Allergies - multiple, takes two allergy shots per week Past Surgical History Left inguinal hernia repair Cataract surgery 2 Repair bladder prolapse Hysterectomy Appendectomy Multiple breast biopsies bilaterally - no history of breast cancer Reported Medications Reported Meds & Active Scripts Active Losartan-Hydrochlorothiazide 50-12.5 Mg Tab 1 Tab PO DAILY Reported Dorzolamide Opth Drops (Dorzolamide HCl) 2% Soln 1 Drop RIGHT EYE BID Vitamin B-12 (Cyanocobalamin) 1,000 Mcg Tab 1,000 Mcg PO DAILY Vitamin D3 (Cholecalciferol) 1,000 Unit Tab 1,000 Units PO DAILY Latanoprost Opth Drops (Latanoprost) 0.005% Drops 1 Drop EACH EYE HS Refrigerate until opened. Pravastatin 20 Mg Tab 20 Mg PO HS Ocuvite Adult 50+ (Multiple Vitamins W/ Minerals) 1 Cap 1 Cap PO DAILY Ambien (Zolpidem Tartrate) 10 Mg Tab 5 Mg PO HS PRN Xarelto (Rivaroxaban) 20 Mg Tab 20 Mg PO DAILY Timoptic Opth Drops (Timolol Opth Drops) 0.5 % Soln 1 Drop EACH EYE BID Singulair (Montelukast Sodium) 10 Mg Tab 10 Mg PO HS Mirtazapine 30 Mg Tab 30 Mg PO HS Allergies: Coded Allergies: mold (Unverified Allergy, Severe, Shortness of Breath, 05/25/17) Active Ordered Medications Inpatient Medications Acetaminophen (Tylenol) 650 mg Q4H PRN PO TEMP > 100.4, PAIN 1-10; Start 08/08 at 17:45; Status UNV Albuterol/ Ipratropium (Duoneb Neb) 1 ampule ONCE ONCE INH Last administered on 08/08/17 15:23; Start 08/08/17 at 15:15; Stop 08/08/17 at 15:16; Status DC Azithromycin (Zithromax) 500 mg DAILY PO ; Start 08/09/17 at 17:00; Status UNV Azithromycin 500 mg/Sodium Chloride 250 ml @ 250 mls/hr ONCE ONCE IV Last administered on 08/08/17 17:24; Start 08/08/17 at 15:30; Stop 08/08/17 at 16 :29; Status DC Bisacodyl (Dulcolax Supp) 10 mg DAILY PRN RECTAL SEVERE CONSITIPATION; Start 08/08/17 at 17:45; Status UNV Ceftriaxone Sodium 1000 mg/ Sodium Chloride 100 ml @ 200 mls/hr Q24H IV ; Start 08/09/17 at 16:45; Status UNV Lactulose (Lactulose Liq) 30 ml DAILY PRN PO SEVERE CONSITIPATION; Start 08/08 at 17:45; Status UNV Magnesium Hydroxide (Milk Of Magnesia Liq) 30 ml Q12H PRN PO Mild constipation ; Start 08/08/17 at 17:45; Status UNV Naloxone HCl (Narcan Inj) 0.4 mg UNSCH PRN IV PUSH SEE LABEL COMMENTS; Start 08/08/17 at 17:45; Status UNV Ondansetron HCl (Zofran Inj) 4 mg Q6H PRN IVP NAUSEA OR VOMITING; Start at 17:45; Status UNV Senna/Docusate Sodium (Katia-Colace) 1 tab BID PO ; Start 08/08/17 at 21:00; Status UNV Sennosides (Senokot) 17.2 mg Q12H PRN PO Moderate constipation; Start at 17:45; Status UNV Sodium Chloride (NS Flush) 2 ml BID IV FLUSH ; Start 08/08/17 at 21:00 Family History Parents: father with heart problems Brother: "something heart related" Social History Just coming from one week cruise 07/31/17-08/07/[place] on cruise Physical Exam Vital Signs Vital Signs Date Time Temp Pulse Resp B/P (MAP) Pulse Ox O2 Delivery O2 Flow Rate FiO2 08/08/17 16:10 94 21 115/60 (78) 97 Nasal Cannula 2.00 08/08/17 15:17 Room Air 08/08/17 15:16 97 Nasal Cannula 2.00 08/08/17 15:15 95 Nasal Cannula 2.00 08/08/17 15:10 93 24 113/57 (75) 96 Nasal Cannula 2.00 08/08/17 14:41 97.5 103 18 138/87 (104) 83 Physical Exam GENERAL: Patient is an elderly female lying in bed with nasal cannula in place. She appears tired. SKIN: Warm and dry. All his rashes or ecchymoses but there is evidence of dehydration. HEAD: Atraumatic. Normocephalic. EYES: PERRLA. EOMI. No scleral icterus. No injection or drainage. ENT: No nasal bleeding or discharge. Mucous membranes pink and moist. NECK: Trachea midline. No JVD. CARDIOVASCULAR: Regular rate and rhythm. No murmurs, gallops, rubs. RESPIRATORY: No accessory muscle use. Rales noted throughout lung barbosa, expiratory wheezing also noted in upper lung barbosa bilaterally. Breath sounds equal bilaterally. GASTROINTESTINAL: Abdomen soft, non-tender, nondistended. Normal bowel sounds. Hepatic and splenic margins not palpable. MUSCULOSKELETAL: Extremities without clubbing, cyanosis, or edema. No obvious deformities. NEUROLOGICAL: Awake and alert. No obvious cranial nerve deficits. Motor grossly within normal limits. Muscle strength 4/5 in the arms and legs. Normal speech. PSYCHIATRIC: Appropriate mood and affect; insight and judgment normal. Laboratory Laboratory Tests Test 08/08/17 15:15 08/08/17 16:24 White Blood Count 8.4 Red Blood Count 4.17 Hemoglobin 12.7 Hematocrit 38.0 Mean Corpuscular Volume 91.0 Mean Corpuscular Hemoglobin 30.5 Mean Corpuscular Hemoglobin Concent 33.5 Red Cell Distribution Width 14.5 Platelet Count 224 Mean Platelet Volume 6.7 Neutrophils (%) (Auto) 84.9 Lymphocytes (%) (Auto) 6.4 Monocytes (%) (Auto) 8.6 Eosinophils (%) (Auto) 0.0 Basophils (%) (Auto) 0.1 Neutrophils # (Auto) 7.1 Lymphocytes # (Auto) 0.5 Monocytes # (Auto) 0.7 Eosinophils # (Auto) 0.0 Basophils # (Auto) 0.0 CBC Comment DIFF FINAL Differential Comment Blood Urea Nitrogen 8 Creatinine 0.34 Random Glucose 107 Calcium Level 7.9 Sodium Level 123 Potassium Level 4.1 Chloride Level 87 Carbon Dioxide Level 27.0 Anion Gap 9 Estimat Glomerular Filtration Rate 182 Lactic Acid Level 0.9 Date/Time Source Procedure Growth Status 08/08/17 16:25 Blood Peripheral Aerobic Blood Culture Pending Received 08/08/17 16:25 Blood Peripheral Anaerobic Blood Culture Pending Received Result Diagram: 08/08/17 1515 08/08/17 1515 Imaging Last Impressions Chest X-Ray 08/08/17 1501 Signed Impressions: Service Date/Time: Tuesday, August 08, 2017 15:03 - CONCLUSION: 1. New patchy opacity in the left lung base of concern for early pneumonia. MD Kiesha Wesley VTE Risk Assessment Caprinlaura VTE Risk Assessment: Mod/High Risk (score >= 2) Caprini Risk Assessment Model Point Value = 1 Point Value = 2 Point Value = 3 Point Value = 5 Age 41-60 Minor surgery BMI > 25 kg/m2 Swollen legs Varicose veins or History of unexplained or recurrent spontaneous Oral contraceptives or hormone replacement Sepsis (< 1 month) Serious lung disease, including pneumonia (< 1 month) Abnormal pulmonary function Acute myocardial infarction Congestive heart failure (< 1 month) History of inflammatory bowel disease Medical patient at bed rest Age 61-74 Arthroscopic surgery Major open surgery (> 45 min) Laparoscopic surgery (> 45 min) Malignancy Confined to bed (> 72 hours) Immobilizing plaster cast Central venous access Age >= 75 History of VTE Family history of VTE Factor V Leiden Prothrombin [id number] Lupus anticoagulant Anticardiolipin antibodies Elevated serum homocysteine Heparin-induced thrombocytopenia Other congenital or acquired thrombophilia Stroke (< 1 month) Elective arthroplasty Hip, pelvis, or leg fracture Acute spinal cord injury (< 1 month) Prophylaxis Regimen Total Risk Factor Score Risk Level Prophylaxis Regimen 0-1 Low Early ambulation 2 Moderate Order ONE of the following: *Sequential Compression Device (SCD) *Heparin 5000 units SQ BID 3-4 Higher Order ONE of the following medications: *Heparin 5000 units SQ TID *Enoxaparin/Lovenox 40 mg SQ daily (WT < 150 kg, CrCl > 30 mL/min) *Enoxaparin/Lovenox 30 mg SQ daily (WT < 150 kg, CrCl > 10-29 mL/min) *Enoxaparin/Lovenox 30 mg SQ BID (WT < 150 kg, CrCl > 30 mL/min) AND/OR *Sequential Compression Device (SCD) 5 or more Highest Order ONE of the following medications: *Heparin 5000 units SQ TID (Preferred with Epidurals) *Enoxaparin/Lovenox 40 mg SQ daily (WT < 150 kg, CrCl > 30 mL/min) *Enoxaparin/Lovenox 30 mg SQ daily (WT < 150 kg, CrCl > 10-29 mL/min) *Enoxaparin/Lovenox 30 mg SQ BID (WT < 150 kg, CrCl > 30 mL/min) AND *Sequential Compression Device (SCD) Assessment and Plan Assessment and Plan 86-year-old female with recent influenza diagnosis who presents with worsening upper respiratory symptoms. Basic labs and CXR were ordered in the ED revealing normal white count but notable left shift, hyponatremia, and CXR notable for a possible consolidation in the left lung base. In the outpatient setting she was being treated for pneumonia which was diagnosed 08/07, with 3 doses of Tamiflu completed. She is noted to have hypoxia upon ED arrival documented at 83% with tachycardia. She is also noted to have tachypnea. She will be admitted for further workup and evaluation. She meets inpatient criteria based on hypoxia on admission, evidence of pneumonia on CXR, and hyponatremia. Code Status Full Code Discussed Condition With Seen and discussed with Dr. Brit Rios Problem List: (1) Pneumonia ICD Codes: J18.9 - Pneumonia, unspecified organism Status: Acute Plan: Findings: Clinical hypoxia with shortness of breath reported. History of recent cruise which increased risk for atypical sources such as Legionella. CXR with right basilar consolidation. Plan: * Admit inpatient * Vital signs every 4 hours * Rocephin 1 g IV q24hr and azithromycin 500 mg PO q24hr, first doses in ED * Respiratory support with oxygen via nasal cannula with O2 sat greater than 92 % escalate as needed. Of note patient is on CPAP intermittently at home but has not used it in over a week * Duonebs every 6 hours scheduled * Albuterol every 2 hours PRN wheezing/sob * Continue Singulair at 10 mg nightly * Incentive spirometry * Anticipate patient may only require overnight stay if respiratory support can be weaned (2) Influenza ICD Codes: J11.1 - Influenza due to unidentified influenza virus with other respiratory manifestations Status: Acute Plan: Patient was diagnosed with influenza at a hospital near [facility] on 08/07. She is already being treated with Tamiflu with 3 doses completed starting 08/07 in the AM. * Continue Tamiflu at 75 mg PO BID, patient will need 10 total doses * Given her age, she is at high risk for severe infection warranting the overnight close monitoring given worsening of her symptoms at home (3) Asthma in adult ICD Codes: J45.909 - Asthma in adult Status: Chronic Plan: Noted. May be contributing to current symptoms noted above. Management as above. (4) Hyponatremia ICD Codes: E87.1 - Hypo-osmolality and hyponatremia Status: Acute Plan: Noted. Patient does not have any severe symptoms noted but does have a loss of appetite and fatigue. Patient does have some weakness and worsening of her total body aches and hyponatremia may be contributing to the symptoms. * Repeat BMP this evening, continue serial monitoring * Will monitor on telemetry given her metabolic dyscrasias (5) Atrial fibrillation ICD Codes: I48.91 - Unspecified atrial fibrillation Status: Chronic Plan: Chronic. Patient is on Xarelto. Rate is approximately 100 during examination and rhythm appears regular on telemetry. She does not appear to be on a beta sonali. * EKG * Monitor on telemetry * If patient's rhythm becomes more rapid will treat with beta sonali and initiate further workup as needed (6) HTN (hypertension) ICD Codes: I10 - Essential (primary) hypertension Status: Chronic Plan: Chronic hypertension. Patient is on losartan/HCTZ 50-12.5 mg daily. She also has chronic hyperlipidemia treated with pravastatin 20 mg nightly. * Continue home dose antihypertensives and statin * Clonidine 0.1mg PO PRN for SBP > 180/ and/or DBP > 100 (7) Glaucoma ICD Codes: H40.9 - Glaucoma Status: Chronic Plan: Chronic glaucoma. No acute symptoms today. She is on timolol drops bilaterally twice a day, dorzolamide drops in the right eye twice a day, latanoprost drops bilaterally at night. * Continue eyedrops as prescribed (8) Depression ICD Codes: F32.9 - Major depressive disorder, single episode, unspecified Status: Chronic Plan: Chronic depression supposed based on medication list. She is on mirtazapine 30 mg nightly and also on Ambien 5 mg nightly. Both medications may be used for sleep. * Continue medications at home doses (9) Fluids/Electrolytes/Nutrition/Prophylaxis Status: Acute Plan: Fluids: tolerating PO/NS @ 84 ml/hr Electrolytes: hypoNa, monitor and replete as needed Nutrition: regular diet DVT Prophylaxis: Early ambulation. Xarelto/SCDs. GI Prophylaxis: Not indicated PRN anti-HTN: Clonidine 0.1mg PO PRN for SBP > 180/ and/or DBP > 100 Problem Qualifiers (1) Pneumonia: Qualified Codes: J18.1 - Lobar pneumonia, unspecified organism (2) Atrial fibrillation: Qualified Codes: I48.2 - Chronic atrial fibrillation (3) HTN (hypertension): Qualified Codes: I10 - Essential (primary) hypertension Mali Maldonado MD R2 Aug 08, 2017 18:21
[2017-08-08] MEDS ORDERED: PILL SPLITTER OTHER PRN (19:15)
[2017-08-08] MEDS ORDERED: RESP: ALBUTEROL 2.5 MG/IPRATROPIUM 0.5 MG NEB (SCH) NEB (20:00)
[2017-08-08] MEDS: SODIUM CHLORIDE 0.9% FLUSH 10 ML FLUSH IV FLUSH SCH (21:00)
[2017-08-08 21:20] LABS: DIRECT BILIRUBIN ADULT 0.1 MG/DL (0.0-0.2)
[2017-08-08 21:21] LABS: INDIRECT BILIRUBIN 0.2 MG/DL (0.0-0.8); TOTAL BILIRUBIN ADULT 0.3 MG/DL (0.2-1.0); TOTAL PROTEIN 6.5 GM/DL (6.4-8.2)
[2017-08-08] MEDS: SODIUM CHLOR 0.9% 1000 ML INJ 1,000 ML IV SCH (22:04)
[2017-08-08] MEDS: PRAVASTATIN SOD 20 MG TAB PO SCH (22:05)
[2017-08-08] MEDS: MONTELUKAST SODIUM 10 MG TAB PO SCH (22:05)
[2017-08-08] MEDS: MIRTAZAPINE 15 MG TAB PO SCH (22:05)
[2017-08-08] MEDS: DOCUSATE SODIUM 50 MG/SENNA 8.6 MG TAB PO SCH (22:05)
[2017-08-08 22:09] LABS: BICARBONATE 24.9 MEQ/L (21.0-32.0); CALCIUM 8.4 MG/DL (8.5-10.1); CREATININE 0.35 MG/DL (0.50-1.00)
[2017-08-08] MEDS: LATANOPROST 0.005% OPHT SOLN 2.5 ML BTL EACH EYE SCH (23:03)
[2017-08-08] MEDS: TIMOLOL MALEATE 0.5% OPHT SOLN 5 ML BTL EACH EYE SCH (23:03)
[2017-08-08] MEDS: OSELTAMIVIR PHOSPHATE 75 MG CAP PO SCH (23:03)
[2017-08-08] MEDS: DORZOLAMIDE 2% OPTH SOLN 200 DROP/10 ML BTLO RIGHT EYE SCH (23:03)
[2017-08-09] VITALS (16 sets, daily range): BP systolic 93–195; BP diastolic 55–95; PULSE 70–122; RESP 20–36; TEMP 95.3–98.9; O2SAT 92–99
[2017-08-09] MEDS: RESP: ALBUTEROL 2.5 MG/3 ML NEB (PRN) NEB (00:05)
[2017-08-09 01:19] LABS: BILIRUBIN, URINE NEG (NEG); BLOOD, URINE NEG (NEG); GLUCOSE,URINE NEG (NEG); KETONE, URINE 10 mg/dL (NEG); MUCUS URINE FEW /lpf (OCC); NITRITE,URINE NEG (NEG); RENAL EPITHELIAL CELLS <1 /hpf; SQUAMOUS EPITHELIAL CELL URINE 1 /hpf (0-5); URINE COLOR YELLOW (YELLW/STRAW); URINE LEUKOCYTE ESTERASE NEG (NEG)
[2017-08-09] MEDS: SODIUM CHLOR 0.9% 1000 ML INJ 1,000 ML IV SCH ×2 (04:10→21:26)
[2017-08-09] MEDS: methylPREDNISolone SOD SUCC 125 MG/2 ML VIAL IV PUSH SCH ×3 (06:12→15:57)
--- NOTE | 2017-08-09 06:41 | HHI.PR ---
Addendum to Inpatient Note Addendum Reason: Additional Documentation Additional Information WONG S: Wong called on patient for hypoxia noted to be as low as 63% at ~0530 At bedside, patient reports no shortness of breath or chest pain. Cough is noted , nonproductive but wet-sounding. No new symptoms. She is sleeping easily but arousable. O: VS: BP 170s/80s. Pulse 88-92% on NC 4L. Pulse 90s. Exam again shows rhonchi, diffuse wheezing not noted. Periocular areas sunken in. Patient looks ill. A/P: 86F admitted with hypoxia, URI symptoms, Influenza A, community acquired PNA. Worsening O2 sats on med-surg floor Venturi mask with 50% O2 at 6L initiated, with initial improvement of saturations to 95%, then decreased to 88%. ABG performed showing respiratory acidosis with ph 7.27/68/30/90. This suggests CO2 retention. Patient arousable. Will initiate Bipap after transfer to [facility]. Solumedrol 60mg IV q6hr initiated. Mucinex initiated. Mucomyst ordered. Increased frequency of Duonebs to q4hr Protonix 40mg IV q24hr Patient is FULL CODE and wants intubation if indicated. If worsening respiratory status, will proceed with critical care consult, possible intubation if needed AM labs pending Will discuss with attending Mali Woods MD R2 Aug 09, 2017 06:41
--- NOTE | 2017-08-09 06:41 | HHI.PR ---
Addendum to Inpatient Note Addendum Reason: Additional Documentation Additional Information WONG S: Wong called on patient for hypoxia noted to be as low as 63% at ~0530 At bedside, patient reports no shortness of breath or chest pain. Cough is noted , nonproductive but wet-sounding. No new symptoms. She is sleeping easily but arousable. O: VS: BP 170s/80s. Pulse 88-92% on NC 4L. Pulse 90s. Exam again shows rhonchi, diffuse wheezing not noted. Periocular areas sunken in. Patient looks ill. A/P: 86F admitted with hypoxia, URI symptoms, Influenza A, community acquired PNA. Worsening O2 sats on med-surg floor Venturi mask with 50% O2 at 6L initiated, with initial improvement of saturations to 95%, then decreased to 88%. ABG performed showing respiratory acidosis with ph 7.27/68/30/90. This suggests CO2 retention. Patient arousable. Will initiate Bipap after transfer to [facility]. Solumedrol 60mg IV q6hr initiated. Mucinex initiated. Mucomyst ordered. Increased frequency of Duonebs to q4hr Protonix 40mg IV q24hr Patient is FULL CODE and wants intubation if indicated. If worsening respiratory status, will proceed with critical care consult, possible intubation if needed AM labs pending Will discuss with attending Mali Woods MD R2 Aug 09, 2017 06:41
--- NOTE | 2017-08-09 06:41 | HHI.PR ---
Addendum to Inpatient Note Addendum Reason: Additional Documentation Additional Information WONG S: Wong called on patient for hypoxia noted to be as low as 63% at ~0530 At bedside, patient reports no shortness of breath or chest pain. Cough is noted , nonproductive but wet-sounding. No new symptoms. She is sleeping easily but arousable. O: VS: BP 170s/80s. Pulse 88-92% on NC 4L. Pulse 90s. Exam again shows rhonchi, diffuse wheezing not noted. Periocular areas sunken in. Patient looks ill. A/P: 86F admitted with hypoxia, URI symptoms, Influenza A, community acquired PNA. Worsening O2 sats on med-surg floor Venturi mask with 50% O2 at 6L initiated, with initial improvement of saturations to 95%, then decreased to 88%. ABG performed showing respiratory acidosis with ph 7.27/68/30/90. This suggests CO2 retention. Patient arousable. Will initiate Bipap after transfer [place] [facility] Solumedrol 60mg IV q6hr initiated. Mucinex initiated. Mucomyst ordered. Increased frequency of Duonebs to q4hr Protonix 40mg IV q24hr Patient is FULL CODE and wants intubation if indicated. If worsening respiratory status, will proceed with critical care consult, possible intubation if needed AM labs pending Will discuss with attending Mali Woods MD R2 Aug 09, 2017 06:41
[2017-08-09] MEDS ORDERED: MAGNESIUM SULFATE INJ 2 GM in SODIUM CHLORIDE 0.9% INJ 96 ML IV PRN (06:45)
[2017-08-09] MEDS ORDERED: MISCELLANEOUS NURSING INFORMATION XX SCH (06:45)
[2017-08-09] MEDS ORDERED: MAGNESIUM SULFATE INJ 4 GM in SODIUM CHLORIDE 0.9% INJ 92 ML IV PRN (06:45)
[2017-08-09] MEDS ORDERED: SODIUM PHOSPHATE INJ 30 MMOL in SODIUM CHLOR 0.9% 250 ML INJ 240 ML IV PRN (06:45)
[2017-08-09] MEDS ORDERED: POTASSIUM PHOSPHATE MONOBASIC 500 MG TAB PO PRN (06:45)
[2017-08-09] MEDS ORDERED: POTASSIUM CHLOR 40 MEQ PREMIX 100 ML IV PRN ×2 (06:45)
[2017-08-09] MEDS ORDERED: MAGNESIUM OXIDE 400 MG TAB PO PRN (06:45)
[2017-08-09] MEDS ORDERED: POTASSIUM PHOSPHATE MONOBASIC 500 MG TAB PO/TUBE PRN (06:45)
[2017-08-09] MEDS ORDERED: POTASSIUM PHOSPHATE INJ 30 MMOL in SODIUM CHLOR 0.9% 250 ML INJ 250 ML IV PRN (06:45)
[2017-08-09] MEDS ORDERED: POTASSIUM CHLOR 20 MEQ PREMIX 100 ML IV PRN ×2 (06:45)
[2017-08-09] MEDS ORDERED: POTASSIUM CHLORIDE 25 MEQ EFFERVESCENT TAB PO PRN (06:45)
[2017-08-09] MEDS ORDERED: CHLORHEXIDINE GLUCONATE 2 % 1 PACK (2 CLOTHS) TOP PRN (06:45)
--- NOTE | 2017-08-09 06:49 | RADRPT ---
EXAM DATE/TIME: 08/09/2017 06:22 [facility] COMPARISON: CHEST SINGLE AP, August 08, 2017, 15:03. INDICATIONS : Short of breath MEDICAL HISTORY : hypertension, CVA, A-fib, asthma SURGICAL HISTORY : appendectomy, hysterectomy ENCOUNTER: Subsequent ACUITY: 4 - 6 days PAIN SCORE: Non-responsive. LOCATION: Bilateral chest FINDINGS: Bilateral perihilar and basilar infiltrates persist, slightly worse than on prior exam with decreasin g lung volumes. Cardiac contours are grossly stable. CONCLUSION: Worsening bilateral infiltrates Bud Cordoba MD on August 09, 2017 at 6:47 Board Certified Radiologist. This report was verified electronically.
[2017-08-09 06:52] LABS: AUTOMATED NEUTROPHIL # 9.9 TH/MM3 (1.8-7.7); BASOPHIL % 0.1 % (0.0-2.0); HEMOGLOBIN 12.9 GM/DL (11.6-15.3); LYMPH % 7.5 % (9.0-44.0); LYMPHOCYTE # 0.8 TH/MM3 (1.0-4.8); MEAN CELL VOLUME 92.9 FL (80.0-100.0); MEAN CORPUSCULAR HEMOGLOBIN 30.7 PG (27.0-34.0); MEAN PLATELET VOLUME 6.9 FL (7.0-11.0); MONO % 5.7 % (0.0-8.0); MONOCYTE # 0.6 TH/MM3 (0-0.9); NEUT % 86.7 % (16.0-70.0); PLATELET COUNT 209 TH/MM3 (150-450); RED CELL DISTRIBUTION WIDTH 14.3 % (11.6-17.2); WHITE BLOOD COUNT 11.4 TH/MM3 (4.0-11.0)
[2017-08-09 06:57] LABS: ALBUMIN 3.3 GM/DL (3.4-5.0); AST (GOT) 68 U/L (15-37); BLOOD UREA NITROGEN 7 MG/DL (7-18); CALCIUM 8.3 MG/DL (8.5-10.1); CHLORIDE 89 MEQ/L (98-107); CREATININE 0.45 MG/DL (0.50-1.00); GLOMERULAR FILTRATION RATE 132 ML/MIN (>89); GLUCOSE,RANDOM 168 MG/DL (74-106)
[2017-08-09 07:00] LABS: ALKALINE PHOSPHATASE 107 U/L (45-117); ALT (GPT) 43 U/L (10-53); TOTAL BILIRUBIN ADULT 0.3 MG/DL (0.2-1.0); TOTAL PROTEIN 7.3 GM/DL (6.4-8.2)
[2017-08-09 07:02] LABS: SODIUM (NA) 122 MEQ/L (136-145)
--- NOTE | 2017-08-09 07:10 | RADRPT ---
EXAM DATE/TIME: 08/09/2017 06:38 [facility] COMPARISON: CHEST SINGLE AP, August 09, 2017, 6:22. INDICATIONS : Short of breath. MEDICAL HISTORY : hypertension, CVA, A-fib, asthma SURGICAL HISTORY : Appendectomy. ENCOUNTER: Subsequent ACUITY: 2 days PAIN SCORE: 0/10 LOCATION: Bilateral chest FINDINGS: Increasing airspace disease is identified in the left mid lung and base. Mild airspace disease is als o developing in the right base. Heart and mediastinal structures are stable. CONCLUSION: Increasing airspace disease. Jaswinder Rossi MD on August 09, 2017 at 7:06 Board Certified Radiologist. This report was verified electronically.
[2017-08-09] MEDS: RESP: ALBUTEROL 2.5 MG/IPRATROPIUM 0.5 MG NEB (SCH) INH ×5 (07:41→23:10)
[2017-08-09] MEDS ORDERED: Vancomycin Consult Pharmacy 1 EA OTHER SCH (07:45)
[2017-08-09] MEDS: RIVAROXABAN 20 MG TAB PO SCH (08:29)
[2017-08-09] MEDS: PANTOPRAZOLE SODIUM 40 MG VIAL IV PUSH SCH (08:30)
[2017-08-09] MEDS: guaiFENesin E.R. 600 MG TAB PO SCH ×2 (08:30→20:36)
[2017-08-09] MEDS: DOCUSATE SODIUM 50 MG/SENNA 8.6 MG TAB PO SCH ×2 (08:30→20:37)
[2017-08-09] MEDS: SODIUM CHLORIDE 0.9% FLUSH 10 ML FLUSH IV FLUSH SCH ×2 (08:31→20:37)
[2017-08-09] MEDS: HYDROCHLOROTHIAZIDE 12.5 MG CAP PO SCH (08:31)
[2017-08-09] MEDS: LOSARTAN 50 MG TAB PO SCH (08:32)
[2017-08-09] MEDS: DORZOLAMIDE 2% OPTH SOLN 200 DROP/10 ML BTLO RIGHT EYE SCH ×2 (09:00→20:36)
[2017-08-09] MEDS ORDERED: NON-FORMULARY DRUG (Losartan-Hydrochlorothiazide 1 TAB) PO SCH (09:00)
[2017-08-09] MEDS: TIMOLOL MALEATE 0.5% OPHT SOLN 5 ML BTL EACH EYE SCH ×2 (09:00→20:36)
[2017-08-09] MEDS ORDERED: VANCOMYCIN INJ 1,500 MG in SODIUM CHLORID 0.9% 500 ML INJ 500 ML IV SCH (09:00)
[2017-08-09] MEDS: OSELTAMIVIR PHOSPHATE 75 MG CAP PO SCH ×2 (09:25→20:36)
[2017-08-09 09:34] LABS: INTERNATIONAL NORMALIZED RATIO 0.9 RATIO
[2017-08-09] MEDS: RESP: ACETYLCYSTEINE 20% 30 ML NEB NEB SCH ×3 (10:00→20:25)
[2017-08-09] MEDS ORDERED: INFLUENZA VIRUS VACCINE (QUADRIVALENT) 0.5 ML SYR IM ONE (10:00)
--- NOTE | 2017-08-09 12:26 | HHI.FPPN ---
Objective Vitals Vital Signs Date Time Temp Pulse Resp B/P (MAP) Pulse Ox O2 Delivery O2 Flow Rate FiO2 08/09/17 07:45 96 BiPAP 50 08/09/17 07:45 96 50 08/09/17 06:34 97.9 101 31 164/83 (110) 94 08/09/17 06:15 92 Venturi Mask 50 08/09/17 05:20 95.3 108 36 195/95 (128) 96 08/09/17 05:20 98 Non-Rebreather 12.00 08/09/17 00:10 92 Nasal Cannula 2.50 08/09/17 00:00 96.9 97 22 171/85 (113) 94 08/08/17 22:14 101 08/08/17 20:00 94 Nasal Cannula 2.00 08/08/17 20:00 96.8 102 22 126/67 (86) 94 08/08/17 19:15 08/08/17 19:15 88 22 132/63 (86) 97 Nasal Cannula 2.00 08/08/17 18:30 96 22 121/60 (80) 96 Nasal Cannula 2.00 08/08/17 16:10 94 21 115/60 (78) 97 Nasal Cannula 2.00 08/08/17 15:17 Room Air 08/08/17 15:16 97 Nasal Cannula 2.00 08/08/17 15:15 95 Nasal Cannula 2.00 08/08/17 15:10 93 24 113/57 (75) 96 Nasal Cannula 2.00 08/08/17 14:41 97.5 103 18 138/87 (104) 83 I/O 08/08/17 08/08/17 08/08/17 08/09/17 08/09/17 08/09/17 07:00 15:00 23:00 07:00 15:00 23:00 Intake Total 350 ml 820 ml Output Total 200 ml Balance 350 ml 620 ml Intake IV Total 350 ml 820 ml Output Urine Total 200 ml # Voids 1 # Bowel Movements 1 Result Diagram: 08/09/17 0607 08/09/17 0848 A/P Assessment and Plan 86-year-old female with recent influenza diagnosis who presents with worsening upper respiratory symptoms. Basic labs and CXR were ordered in the ED revealing normal white count but notable left shift, hyponatremia, and CXR notable for a possible consolidation in the left lung base. In the outpatient setting she was being treated for pneumonia which was diagnosed 08/07, with 3 doses of Tamiflu completed. She is noted to have hypoxia upon ED arrival documented at 83% with tachycardia. She is also noted to have tachypnea. She will be admitted for further workup and evaluation. She meets inpatient criteria based on hypoxia on admission, evidence of pneumonia on CXR, and hyponatremia. Problem List: (1) Pneumonia ICD Codes: J18.9 - Pneumonia, unspecified organism Status: Acute Plan: Findings: Clinical hypoxia with shortness of breath reported. History of recent cruise which increased risk for atypical sources such as Legionella. CXR with right basilar consolidation. Plan: * Admit inpatient * Vital signs every 4 hours * Rocephin 1 g IV q24hr and azithromycin 500 mg PO q24hr, first doses in ED * Respiratory support with oxygen via nasal cannula with O2 sat greater than 92 % escalate as needed. Of note patient is on CPAP intermittently at home but has not used it in over a week * Duonebs every 6 hours scheduled * Albuterol every 2 hours PRN wheezing/sob * Continue Singulair at 10 mg nightly * Incentive spirometry * Anticipate patient may only require overnight stay if respiratory support can be weaned (2) Influenza ICD Codes: J11.1 - Influenza due to unidentified influenza virus with other respiratory manifestations Status: Acute Plan: Patient was diagnosed with influenza at a hospital near [facility] on 08/07. She is already being treated with Tamiflu with 3 doses completed starting 08/07 in the AM. * Continue Tamiflu at 75 mg PO BID, patient will need 10 total doses * Given her age, she is at high risk for severe infection warranting the overnight close monitoring given worsening of her symptoms at home (3) Asthma in adult ICD Codes: J45.909 - Asthma in adult Status: Chronic Plan: Noted. May be contributing to current symptoms noted above. Management as above. (4) Hyponatremia ICD Codes: E87.1 - Hypo-osmolality and hyponatremia Status: Acute Plan: Noted. Patient does not have any severe symptoms noted but does have a loss of appetite and fatigue. Patient does have some weakness and worsening of her total body aches and hyponatremia may be contributing to the symptoms. * Repeat BMP this evening, continue serial monitoring * Will monitor on telemetry given her metabolic dyscrasias (5) Atrial fibrillation ICD Codes: I48.91 - Unspecified atrial fibrillation Status: Chronic Plan: Chronic. Patient is on Xarelto. Rate is approximately 100 during examination and rhythm appears regular on telemetry. She does not appear to be on a beta sonali. * EKG * Monitor on telemetry * If patient's rhythm becomes more rapid will treat with beta sonali and initiate further workup as needed (6) HTN (hypertension) ICD Codes: I10 - Essential (primary) hypertension Status: Chronic Plan: Chronic hypertension. Patient is on losartan/HCTZ 50-12.5 mg daily. She also has chronic hyperlipidemia treated with pravastatin 20 mg nightly. * Continue home dose antihypertensives and statin * Clonidine 0.1mg PO PRN for SBP > 180/ and/or DBP > 100 (7) Glaucoma ICD Codes: H40.9 - Glaucoma Status: Chronic Plan: Chronic glaucoma. No acute symptoms today. She is on timolol drops bilaterally twice a day, dorzolamide drops in the right eye twice a day, latanoprost drops bilaterally at night. * Continue eyedrops as prescribed (8) Depression ICD Codes: F32.9 - Major depressive disorder, single episode, unspecified Status: Chronic Plan: Chronic depression supposed based on medication list. She is on mirtazapine 30 mg nightly and also on Ambien 5 mg nightly. Both medications may be used for sleep. * Continue medications at home doses (9) Fluids/Electrolytes/Nutrition/Prophylaxis Status: Acute Plan: Fluids: tolerating PO/NS @ 84 ml/hr Electrolytes: hypoNa, monitor and replete as needed Nutrition: regular diet DVT Prophylaxis: Early ambulation. Xarelto/SCDs. GI Prophylaxis: Not indicated PRN anti-HTN: Clonidine 0.1mg PO PRN for SBP > 180/ and/or DBP > 100 Problem Qualifiers (1) Pneumonia: Qualified Codes: J18.1 - Lobar pneumonia, unspecified organism (2) Atrial fibrillation: Qualified Codes: I48.2 - Chronic atrial fibrillation (3) HTN (hypertension): Qualified Codes: I10 - Essential (primary) hypertension Brit Rios MD R1 Aug 09, 2017 12:26
--- NOTE | 2017-08-09 14:28 | HHI.FPPN ---
Subjective Remarks Patient seen, examined and discussed with the medicine team. This is an 86-year-old female who was on a cruise and was diagnosed on August 07 in an emergency department in [facility] with influenza A and was started on Tamiflu. It is of note that her while on the cruise on August 04. She was also noted on August 07 to have low sodium, and patient reported decreased appetite, decreased fluid intake, upper respiratory symptoms including body aches but no fever. She did report cough which was occasionally blood tinged. She normally uses C Pap at night at home, but did not use her C Pap during her entire one-week cruise. 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 She takes Xarelto, mirtazapine, Singulair and a statin. No history of CHF. See history and physical examination for this admission for additional historical details including past, family, social history and review of systems at the time of admission. Seen this morning, very somnolent on BiPAP, almost unable to be aroused although she did open her eyes. Her adopted son was present. Nurse reported earlier in the day that she was appropriate and responsive although she did have an episode of urinary incontinence. Later in the morning she was found to be having symptoms of delirium. Another lead gas was drawn and Carcamo catheter was inserted with 1400 mL of urine obtained. Her sensorium cleared. Objective Vitals Vital Signs Date Time Temp Pulse Resp B/P (MAP) Pulse Ox O2 Delivery O2 Flow Rate FiO2 08/09/17 12:36 98 50 08/09/17 12:00 Bi-Pap 50 08/09/17 08:00 Bi-Pap 50 08/09/17 07:45 96 BiPAP 50 08/09/17 07:45 96 50 08/09/17 06:34 97.9 101 31 164/83 (110) 94 08/09/17 06:15 92 Venturi Mask 50 08/09/17 05:20 95.3 108 36 195/95 (128) 96 08/09/17 05:20 98 Non-Rebreather 12.00 08/09/17 00:10 92 Nasal Cannula 2.50 08/09/17 00:00 96.9 97 22 171/85 (113) 94 08/08/17 22:14 101 08/08/17 20:00 94 Nasal Cannula 2.00 08/08/17 20:00 96.8 102 22 126/67 (86) 94 08/08/17 19:15 08/08/17 19:15 88 22 132/63 (86) 97 Nasal Cannula 2.00 08/08/17 18:30 96 22 121/60 (80) 96 Nasal Cannula 2.00 08/08/17 16:10 94 21 115/60 (78) 97 Nasal Cannula 2.00 08/08/17 15:17 Room Air 08/08/17 15:16 97 Nasal Cannula 2.00 08/08/17 15:15 95 Nasal Cannula 2.00 08/08/17 15:10 93 24 113/57 (75) 96 Nasal Cannula 2.00 08/08/17 14:41 97.5 103 18 138/87 (104) 83 I/O 08/08/17 08/08/17 08/08/17 08/09/17 08/09/17 08/09/17 07:00 15:00 23:00 07:00 15:00 23:00 Intake Total 350 ml 820 ml Output Total 200 ml 1400 ml Balance 350 ml 620 ml -1400 ml Intake IV Total 350 ml 820 ml Output Urine Total 200 ml 1400 ml # Voids 1 # Bowel Movements 1 Result Diagram: 08/09/17 0607 08/09/17 0848 Other Results Laboratory Tests Test 08/08/17 15:15 08/08/17 16:24 08/08/17 20:47 08/09/17 01:00 White Blood Count 8.4 TH/MM3 Red Blood Count 4.17 MIL/MM3 Hemoglobin 12.7 GM/DL Hematocrit 38.0 % Mean Corpuscular Volume 91.0 FL Mean Corpuscular Hemoglobin 30.5 PG Mean Corpuscular Hemoglobin Concent 33.5 % Red Cell Distribution Width 14.5 % Platelet Count 224 TH/MM3 Mean Platelet Volume 6.7 FL Neutrophils (%) (Auto) 84.9 % Lymphocytes (%) (Auto) 6.4 % Monocytes (%) (Auto) 8.6 % Eosinophils (%) (Auto) 0.0 % Basophils (%) (Auto) 0.1 % Neutrophils # (Auto) 7.1 TH/MM3 Lymphocytes # (Auto) 0.5 TH/MM3 Monocytes # (Auto) 0.7 TH/MM3 Eosinophils # (Auto) 0.0 TH/MM3 Basophils # (Auto) 0.0 TH/MM3 CBC Comment DIFF FINAL Differential Comment Blood Urea Nitrogen 8 MG/DL 7 MG/DL Creatinine 0.34 MG/DL 0.35 MG/DL Random Glucose 107 MG/DL 102 MG/DL Calcium Level 7.9 MG/DL 8.4 MG/DL Sodium Level 123 MEQ/L 126 MEQ/L Potassium Level 4.1 MEQ/L 4.1 MEQ/L Chloride Level 87 MEQ/L 90 MEQ/L Carbon Dioxide Level 27.0 MEQ/L 24.9 MEQ/L Anion Gap 9 MEQ/L 11 MEQ/L Estimat Glomerular Filtration Rate 182 ML/MIN 176 ML/MIN Lactic Acid Level 0.9 mmol/L Total Bilirubin 0.3 MG/DL Direct Bilirubin 0.1 MG/DL Indirect Bilirubin 0.2 MG/DL Aspartate Amino Transf (AST/SGOT) 46 U/L Alanine Aminotransferase (ALT/SGPT) 28 U/L Alkaline Phosphatase 69 U/L Total Protein 6.5 GM/DL Albumin 3.0 GM/DL Urine Color YELLOW Urine Turbidity CLEAR Urine pH 6.0 Urine Specific [place] 1.018 Urine Protein TRACE mg/dL Urine Glucose (UA) NEG mg/dL Urine Ketones 10 mg/dL Urine Occult Blood NEG Urine Nitrite NEG Urine Bilirubin NEG Urine Urobilinogen LESS THAN 2.0 MG/DL Urine Leukocyte Esterase NEG Urine RBC 1 /hpf Urine WBC 2 /hpf Urine Squamous Epithelial Cells 1 /hpf Urine Renal Epithelial Cells <1 /hpf Urine Mucus FEW /lpf Microscopic Urinalysis Comment CULT NOT INDICATED Test 08/09/17 05:56 08/09/17 06:07 08/09/17 06:30 08/09/17 08:48 Blood Gas Puncture Site RT RADIAL Blood Gas Patient Temperature 98.6 Blood Gas HCO3 30 mmol/L Blood Gas Base Excess 3.4 mmol/L Blood Gas Oxygen Saturation 90 % Arterial Blood pH 7.27 Arterial Blood Partial Pressure CO2 68 mmHg Arterial Blood Partial Pressure O2 69 mmHg Arterial Blood Oxygen Content 15.8 Vol % Arterial Blood Carboxyhemoglobin 1.0 % Arterial Blood Methemoglobin 0.8 % Blood Gas Hemoglobin 12.4 G/DL Oxygen Delivery Device NASAL CANNULA Blood Gas Liter Flow 3 L/M White Blood Count 11.4 TH/MM3 Red Blood Count 4.20 MIL/MM3 Hemoglobin 12.9 GM/DL Hematocrit 39.0 % Mean Corpuscular Volume 92.9 FL Mean Corpuscular Hemoglobin 30.7 PG Mean Corpuscular Hemoglobin Concent 33.0 % Red Cell Distribution Width 14.3 % Platelet Count 209 TH/MM3 Mean Platelet Volume 6.9 FL Neutrophils (%) (Auto) 86.7 % Lymphocytes (%) (Auto) 7.5 % Monocytes (%) (Auto) 5.7 % Eosinophils (%) (Auto) 0.0 % Basophils (%) (Auto) 0.1 % Neutrophils # (Auto) 9.9 TH/MM3 Lymphocytes # (Auto) 0.8 TH/MM3 Monocytes # (Auto) 0.6 TH/MM3 Eosinophils # (Auto) 0.0 TH/MM3 Basophils # (Auto) 0.0 TH/MM3 CBC Comment DIFF FINAL Differential Comment Hematology Comments Blood Urea Nitrogen 7 MG/DL Creatinine 0.45 MG/DL Random Glucose 168 MG/DL Total Protein 7.3 GM/DL Albumin 3.3 GM/DL Calcium Level 8.3 MG/DL Alkaline Phosphatase 107 U/L Aspartate Amino Transf (AST/SGOT) 68 U/L Alanine Aminotransferase (ALT/SGPT) 43 U/L Total Bilirubin 0.3 MG/DL Sodium Level 122 MEQ/L 125 MEQ/L Potassium Level 3.9 MEQ/L Chloride Level 89 MEQ/L Carbon Dioxide Level 27.0 MEQ/L Anion Gap 6 MEQ/L Estimat Glomerular Filtration Rate 132 ML/MIN Phosphorus Level 2.3 MG/DL B-Type Natriuretic Peptide 157 PG/ML Nasal Screen MRSA (PCR) MRSA NOT DETECTED Prothrombin Time 10.0 SEC Prothromb Time International Ratio 0.9 RATIO Activated Partial Thromboplast Time 31.3 SEC Test 08/09/17 11:14 Blood Gas Puncture Site RT RADIAL Blood Gas Patient Temperature 98.6 Blood Gas HCO3 29 mmol/L Blood Gas Base Excess 3.7 mmol/L Blood Gas Oxygen Saturation 94 % Arterial Blood pH 7.35 Arterial Blood Partial Pressure CO2 55 mmHg Arterial Blood Partial Pressure O2 78 mmHg Arterial Blood Oxygen Content 16.3 Vol % Arterial Blood Carboxyhemoglobin 0.8 % Arterial Blood Methemoglobin 1.3 % Blood Gas Hemoglobin 12.3 G/DL Oxygen Delivery Device BiPAP Blood Gas Ventilator Setting [id number] Blood Gas Inspired Oxygen 50 % Last Impressions Chest X-Ray 08/09/17 0000 Signed Impressions: Service Date/Time: Wednesday, August 09, 2017 06:38 - CONCLUSION: Increasing airspace disease. Jaswinder Rossi MD Imaging Last Impressions Chest X-Ray 08/09/17 0000 Signed Impressions: Service Date/Time: Wednesday, August 09, 2017 06:38 - CONCLUSION: Increasing airspace disease. Jaswinder Rossi MD Objective Remarks O. CONSTITUTIONAL/GEN: normally nourished, somnolent, on BiPAP. EYES: conjunctiva normal, sclerae clear NECK: No lymphadenopathy LUNGS: Difficult to auscultate due to patient's somnolence and position in the bed. No Rales audible anteriorly CARDIOVASCULAR: RR without murmur or gallop. Distant heart sounds No significant edema. GI/ABD: soft without masses, without organomegaly. Faint bowel sounds NEURO: No focal deficits. Gait is normal SKIN: color normal, no rashes noted. HEME/LYMPH: no bruising, petechia or significant adenopathy MUSC: Extremities are normal in appearance. PSYCH/MENTAL STATUS: Somnolent. A/P Assessment and Plan 86-year-old female with recent influenza diagnosis who presents with worsening upper respiratory symptoms. Basic labs and CXR were ordered in the ED revealing normal white count but notable left shift, hyponatremia, and CXR notable for a possible consolidation in the left lung base. In the outpatient setting she was being treated for pneumonia which was diagnosed 08/07, with 3 doses of Tamiflu completed. She is noted to have hypoxia upon ED arrival documented at 83% with tachycardia. She is also noted to have tachypnea. She will be admitted for further workup and evaluation. She meets inpatient criteria based on hypoxia on admission, evidence of pneumonia on CXR, and hyponatremia. Discharge Planning Anticipate 2-3 day stay Attending Attestation Patient seen and examined. Case reviewed and discussed with the resident team. Agree with plan of care as discussed with me and documented in the resident note. Problem List: (1) Pneumonia ICD Codes: J18.9 - Pneumonia, unspecified organism Status: Acute Plan: Findings: Clinical hypoxia with shortness of breath reported. History of recent cruise which increased risk for atypical sources such as Legionella. CXR with right basilar consolidation. Plan: * Admit inpatient * Vital signs every 4 hours * Rocephin 1 g IV q24hr and azithromycin 500 mg PO q24hr, first doses in ED * Respiratory support with oxygen via nasal cannula with O2 sat greater than 92 % escalate as needed. Of note patient is on CPAP intermittently at home but has not used it in over a week * Duonebs every 6 hours scheduled * Albuterol every 2 hours PRN wheezing/sob * Continue Singulair at 10 mg nightly * Incentive spirometry * Anticipate patient may only require overnight stay if respiratory support can be weaned (2) Influenza ICD Codes: J11.1 - Influenza due to unidentified influenza virus with other respiratory manifestations Status: Acute Plan: Patient was diagnosed with influenza at a hospital near [facility] on 08/07. She is already being treated with Tamiflu with 3 doses completed starting 08/07 in the AM. * Continue Tamiflu at 75 mg PO BID, patient will need 10 total doses * Given her age, she is at high risk for severe infection warranting the overnight close monitoring given worsening of her symptoms at home (3) Asthma in adult ICD Codes: J45.909 - Asthma in adult Status: Chronic Plan: Noted. May be contributing to current symptoms noted above. Management as above. (4) Hyponatremia ICD Codes: E87.1 - Hypo-osmolality and hyponatremia Status: Acute Plan: Noted. Patient does not have any severe symptoms noted but does have a loss of appetite and fatigue. Patient does have some weakness and worsening of her total body aches and hyponatremia may be contributing to the symptoms. * Repeat BMP this evening, continue serial monitoring * Will monitor on telemetry given her metabolic dyscrasias (5) Atrial fibrillation ICD Codes: I48.91 - Unspecified atrial fibrillation Status: Chronic Plan: Chronic. Patient is on Xarelto. Rate is approximately 100 during examination and rhythm appears regular on telemetry. She does not appear to be on a beta sonali. * EKG * Monitor on telemetry * If patient's rhythm becomes more rapid will treat with beta sonali and initiate further workup as needed (6) HTN (hypertension) ICD Codes: I10 - Essential (primary) hypertension Status: Chronic Plan: Chronic hypertension. Patient is on losartan/HCTZ 50-12.5 mg daily. She also has chronic hyperlipidemia treated with pravastatin 20 mg nightly. * Continue home dose antihypertensives and statin * Clonidine 0.1mg PO PRN for SBP > 180/ and/or DBP > 100 (7) Glaucoma ICD Codes: H40.9 - Glaucoma Status: Chronic Plan: Chronic glaucoma. No acute symptoms today. She is on timolol drops bilaterally twice a day, dorzolamide drops in the right eye twice a day, latanoprost drops bilaterally at night. * Continue eyedrops as prescribed (8) Depression ICD Codes: F32.9 - Major depressive disorder, single episode, unspecified Status: Chronic Plan: Chronic depression supposed based on medication list. She is on mirtazapine 30 mg nightly and also on Ambien 5 mg nightly. Both medications may be used for sleep. * Continue medications at home doses (9) Fluids/Electrolytes/Nutrition/Prophylaxis Status: Acute Plan: Fluids: tolerating PO/NS @ 84 ml/hr Electrolytes: hypoNa, monitor and replete as needed Nutrition: regular diet DVT Prophylaxis: Early ambulation. Xarelto/SCDs. GI Prophylaxis: Not indicated PRN anti-HTN: Clonidine 0.1mg PO PRN for SBP > 180/ and/or DBP > 100 Problem Qualifiers (1) Pneumonia: Qualified Codes: J18.1 - Lobar pneumonia, unspecified organism (2) Atrial fibrillation: Qualified Codes: I48.2 - Chronic atrial fibrillation (3) HTN (hypertension): Qualified Codes: I10 - Essential (primary) hypertension Radha Gusman MD Aug 09, 2017 14:28
[2017-08-09] MEDS: cefTRIAXone INJ 1,000 MG in SODIUM CHLORIDE 0.9% INJ 100 ML IV SCH (15:57)
[2017-08-09] MEDS: AZITHROMYCIN 250 MG TAB PO SCH (15:57)
[2017-08-09] MEDS: MIRTAZAPINE 15 MG TAB PO SCH (20:36)
[2017-08-09] MEDS: MONTELUKAST SODIUM 10 MG TAB PO SCH (20:36)
[2017-08-09] MEDS: VANCOMYCIN INJ 1,300 MG in SODIUM CHLORID 0.9% 500 ML INJ 500 ML IV SCH (20:37)
[2017-08-09] MEDS: PRAVASTATIN SOD 20 MG TAB PO SCH (20:37)
[2017-08-09] MEDS: LATANOPROST 0.005% OPHT SOLN 2.5 ML BTL EACH EYE SCH (21:26)
[2017-08-10] VITALS (16 sets, daily range): BP systolic 154–181; BP diastolic 83–103; PULSE 74–101; RESP 18–52; TEMP 98.5–98.9; O2SAT 95–98
[2017-08-10] MEDS: methylPREDNISolone SOD SUCC 125 MG/2 ML VIAL IV PUSH SCH ×4 (00:54→17:44)
[2017-08-10] MEDS: RESP: ALBUTEROL 2.5 MG/IPRATROPIUM 0.5 MG NEB (SCH) INH ×6 (03:22→23:28)
[2017-08-10] MEDS: RESP: ACETYLCYSTEINE 20% 30 ML NEB NEB SCH ×4 (03:23→20:47)
[2017-08-10] MEDS: CHLORHEXIDINE GLUCONATE 2 % 1 PACK (2 CLOTHS) TOP SCH (04:00)
[2017-08-10] MEDS: SODIUM CHLOR 0.9% 1000 ML INJ 1,000 ML IV SCH (06:30)
[2017-08-10 06:58] LABS: AUTOMATED NEUTROPHIL # 9.3 TH/MM3 (1.8-7.7); HEMATOCRIT 37.5 % (35.0-46.0); HEMOGLOBIN 12.5 GM/DL (11.6-15.3); LYMPH % 4.2 % (9.0-44.0); LYMPHOCYTE # 0.4 TH/MM3 (1.0-4.8); MEAN CELL VOLUME 92.8 FL (80.0-100.0); MEAN CORPUSCULAR HGB CONC 33.4 % (32.0-36.0); MEAN PLATELET VOLUME 6.8 FL (7.0-11.0); MONO % 2.6 % (0.0-8.0); MONOCYTE # 0.3 TH/MM3 (0-0.9); NEUT % 93.2 % (16.0-70.0); PLATELET COUNT 221 TH/MM3 (150-450); RED BLOOD COUNT 4.04 MIL/MM3 (4.00-5.30); RED CELL DISTRIBUTION WIDTH 14.3 % (11.6-17.2)
[2017-08-10 07:31] LABS: ALBUMIN 2.9 GM/DL (3.4-5.0); ALKALINE PHOSPHATASE 114 U/L (45-117); ALT (GPT) 34 U/L (10-53); AST (GOT) 40 U/L (15-37); BICARBONATE 31.2 MEQ/L (21.0-32.0); BLOOD UREA NITROGEN 9 MG/DL (7-18); CALCIUM 8.3 MG/DL (8.5-10.1); CHLORIDE 98 MEQ/L (98-107); CREATININE 0.47 MG/DL (0.50-1.00); GLOMERULAR FILTRATION RATE 125 ML/MIN (>89); GLUCOSE,RANDOM 218 MG/DL (74-106); SODIUM (NA) 133 MEQ/L (136-145); TOTAL BILIRUBIN ADULT 0.3 MG/DL (0.2-1.0); TOTAL PROTEIN 6.5 GM/DL (6.4-8.2)
[2017-08-10] MEDS: TIMOLOL MALEATE 0.5% OPHT SOLN 5 ML BTL EACH EYE SCH ×2 (07:43→20:36)
[2017-08-10] MEDS: VANCOMYCIN INJ 1,300 MG in SODIUM CHLORID 0.9% 500 ML INJ 500 ML IV SCH ×2 (07:43→20:41)
[2017-08-10] MEDS: OSELTAMIVIR PHOSPHATE 75 MG CAP PO SCH ×2 (07:44→20:36)
[2017-08-10] MEDS: DOCUSATE SODIUM 50 MG/SENNA 8.6 MG TAB PO SCH ×2 (07:44→20:37)
[2017-08-10] MEDS: SODIUM CHLORIDE 0.9% FLUSH 10 ML FLUSH IV FLUSH SCH ×2 (07:44→20:37)
[2017-08-10] MEDS: RIVAROXABAN 20 MG TAB PO SCH (07:44)
[2017-08-10] MEDS: guaiFENesin E.R. 600 MG TAB PO SCH ×2 (07:44→20:37)
[2017-08-10] MEDS: LOSARTAN 50 MG TAB PO SCH (07:45)
[2017-08-10] MEDS: AZITHROMYCIN 250 MG TAB PO SCH (07:45)
[2017-08-10] MEDS: DORZOLAMIDE 2% OPTH SOLN 200 DROP/10 ML BTLO RIGHT EYE SCH ×2 (07:45→20:38)
[2017-08-10] MEDS: HYDROCHLOROTHIAZIDE 12.5 MG CAP PO SCH (07:45)
[2017-08-10] MEDS: PANTOPRAZOLE SODIUM 40 MG VIAL IV PUSH SCH (07:46)
[2017-08-10] MEDS ORDERED: PETROLATUM 30 GM TUBE TOPICAL PRN (09:15)
--- NOTE | 2017-08-10 10:20 | HHI.FPPN ---
Subjective Remarks Patient is feeling much better this morning. She passed her swallow study and is ready to eat. She feels like she is breathing better, but still has a cough. No more signs of delirium. No fever/chills, no CP, no SOB, no abdominal pain, no nausea/vomiting, has not had a BM yet. She inquired about her discharge plan. (Brit Rios MD R1) Objective Vitals Vital Signs Date Time Temp Pulse Resp B/P (MAP) Pulse Ox O2 Delivery O2 Flow Rate FiO2 08/10/17 10:00 90 08/10/17 09:56 84 154/87 (109) 08/10/17 08:00 98.5 89 22 174/103 (126) 95 08/10/17 08:00 95 08/10/17 08:00 96 Nasal Cannula 4.00 08/10/17 07:30 95 Nasal Cannula 4.00 08/10/17 06:00 101 08/10/17 04:00 87 08/10/17 04:00 Nasal Cannula 4.00 08/10/17 04:00 98.8 87 52 176/91 (119) 97 08/10/17 02:00 74 08/10/17 00:16 98.8 92 28 178/93 (121) 98 08/10/17 00:00 100 08/10/17 00:00 100 41 95 08/10/17 00:00 Nasal Cannula 4.00 08/09/17 22:00 97 08/09/17 20:25 96 Nasal Cannula 4.00 08/09/17 20:00 Nasal Cannula 4.00 08/09/17 20:00 122 08/09/17 20:00 98.9 122 20 127/67 (87) 98 08/09/17 18:00 87 08/09/17 16:54 98 50 08/09/17 16:00 Bi-Pap 50 08/09/17 16:00 73 08/09/17 16:00 98.2 73 20 136/64 (88) 99 08/09/17 14:00 86 08/09/17 12:36 98 50 08/09/17 12:00 Bi-Pap 50 08/09/17 12:00 97.9 70 26 110/56 (74) 96 08/09/17 12:00 70 08/09/17 12:00 70 I/O 08/09/17 08/09/17 08/09/17 08/10/17 08/10/17 08/10/17 07:00 15:00 23:00 07:00 15:00 23:00 Intake Total 820 ml 2128 ml 480 ml Output Total 200 ml 1400 ml 1000 ml 1250 ml Balance 620 ml -1400 ml 1128 ml -770 ml Intake Oral 480 ml IV Total 820 ml 2128 ml Output Urine Total 200 ml 1400 ml 1000 ml 1250 ml # Voids 1 # Bowel Movements 1 (Brit Rios MD R1) Result Diagram: 08/10/17 0605 08/10/17 0605 Imaging Last Impressions Chest X-Ray 08/09/17 0000 Signed Impressions: Service Date/Time: Wednesday, August 09, 2017 06:38 - CONCLUSION: Increasing airspace disease. Jaswinder Rossi MD Objective Remarks CONSTITUTIONAL/GEN: normally nourished, sitting up in bed, in no acute distress , on nasal cannula. EYES: conjunctiva normal, sclerae clear LUNGS: Diffuse soft rales. No retractions. CARDIOVASCULAR: RR without murmur or gallop. Distant heart sounds. No significant edema. GI/ABD: soft without masses, without organomegaly. Bowel sounds present NEURO: No focal deficits. SKIN: color normal, no rashes noted, no bruising. MUSC: Extremities are normal in appearance. Mild 1+ edema in bilateral LEs to mid abdul. PSYCH/MENTAL STATUS: Awake, alert, and oriented x3. (Brit Rios MD R1) A/P Assessment and Plan 86-year-old female with recent influenza diagnosis who presents with worsening upper respiratory symptoms. Basic labs and CXR were ordered in the ED revealing normal white count but notable left shift, hyponatremia, and CXR notable for a possible consolidation in the left lung base. In the outpatient setting she was being treated for pneumonia which was diagnosed 08/07, with 3 doses of Tamiflu completed. She is noted to have hypoxia upon ED arrival documented at 83% with tachycardia. She is also noted to have tachypnea. She will be admitted for further workup and evaluation. She meets inpatient criteria based on hypoxia on admission, evidence of pneumonia on CXR, and hyponatremia. Discharge Planning Anticipate 2-3 day stay (Brit Rios MD R1) Attending Attestation Patient seen and examined. Case reviewed and discussed with the resident team. Agree with plan of care as discussed with me and documented in the resident note. (Radha Gusman MD) Problem List: (1) Pneumonia ICD Codes: J18.9 - Pneumonia, unspecified organism Status: Acute Plan: Findings: Clinical hypoxia with shortness of breath reported. History of recent cruise which increased risk for atypical sources such as Legionella. CXR with right basilar consolidation. Plan: * Admit inpatient * Vital signs every 4 hours * Rocephin 1 g IV q24hr and azithromycin 500 mg PO q24hr, first doses in ED , started on Vancomycin dosed by pharmacy (08/09- ) * Respiratory support with oxygen via nasal cannula with O2 sat greater than 92 % escalate as needed. Of note patient is on CPAP intermittently at home but has not used it in over a week * Duonebs every 6 hours scheduled * Albuterol every 2 hours PRN wheezing/sob * Continue Singulair at 10 mg nightly * Incentive spirometry (2) Influenza ICD Codes: J11.1 - Influenza due to unidentified influenza virus with other respiratory manifestations Status: Acute Plan: Patient was diagnosed with influenza at a hospital near [facility] on 08/07. She is already being treated with Tamiflu with 3 doses completed starting 08/07 in the AM. * Continue Tamiflu at 75 mg PO BID, patient will need 10 total doses * Given her age, she is at high risk for severe infection warranting the overnight close monitoring given worsening of her symptoms at home * Repeat Influenza testing negative at this stay (3) Asthma in adult ICD Codes: J45.909 - Asthma in adult Status: Chronic Plan: Noted. May be contributing to current symptoms noted above. Management as above. (4) Hyponatremia ICD Codes: E87.1 - Hypo-osmolality and hyponatremia Status: Acute Plan: Noted. Patient does not have any severe symptoms noted but does have a loss of appetite and fatigue. Patient does have some weakness and worsening of her total body aches and hyponatremia may be contributing to the symptoms. * Continue monitoring * Will d/c IVF today, 08/10 since sodium is at 133 * Will monitor on telemetry given her metabolic dyscrasias (5) Atrial fibrillation ICD Codes: I48.91 - Unspecified atrial fibrillation Status: Chronic Plan: Chronic. Patient is on Xarelto. Rate is approximately 100 during examination and rhythm appears regular on telemetry. She does not appear to be on a beta sonali. * EKG * Monitor on telemetry * If patient's rhythm becomes more rapid will treat with beta sonali and initiate further workup as needed (6) HTN (hypertension) ICD Codes: I10 - Essential (primary) hypertension Status: Chronic Plan: Chronic hypertension. Patient is on losartan/HCTZ 50-12.5 mg daily. She also has chronic hyperlipidemia treated with pravastatin 20 mg nightly. * Continue home dose antihypertensives and statin * Clonidine 0.1mg PO PRN for SBP > 180/ and/or DBP > 100 (7) Glaucoma ICD Codes: H40.9 - Glaucoma Status: Chronic Plan: Chronic glaucoma. No acute symptoms today. She is on timolol drops bilaterally twice a day, dorzolamide drops in the right eye twice a day, latanoprost drops bilaterally at night. * Continue eyedrops as prescribed (8) Depression ICD Codes: F32.9 - Major depressive disorder, single episode, unspecified Status: Chronic Plan: Chronic depression supposed based on medication list. She is on mirtazapine 30 mg nightly and also on Ambien 5 mg nightly. Both medications may be used for sleep. * Continue medications at home doses (9) Fluids/Electrolytes/Nutrition/Prophylaxis Status: Acute Plan: Fluids: tolerating PO/NS @ 84 ml/hr Electrolytes: hypoNa, monitor and replete as needed Nutrition: regular diet DVT Prophylaxis: Early ambulation. Xarelto/SCDs. GI Prophylaxis: Not indicated PRN anti-HTN: Clonidine 0.1mg PO PRN for SBP > 180/ and/or DBP > 100 (Brit Rios MD R1) Problem Qualifiers (1) Pneumonia: Qualified Codes: J18.1 - Lobar pneumonia, unspecified organism (2) Atrial fibrillation: Qualified Codes: I48.2 - Chronic atrial fibrillation (3) HTN (hypertension): Qualified Codes: I10 - Essential (primary) hypertension Brit Rios MD R1 Aug 10, 2017 10:20 Radha Gusman MD Aug 10, 2017 15:41
[2017-08-10 14:08] LABS: BASOPHIL % 0.1 % (0.0-2.0); EOSINOPHIL % 0.2 % (0.0-4.0); HEMOGLOBIN 12.9 GM/DL (11.6-15.3); LYMPH % 3.7 % (9.0-44.0); LYMPHOCYTE # 0.4 TH/MM3 (1.0-4.8); MEAN CELL VOLUME 93.2 FL (80.0-100.0); MEAN CORPUSCULAR HEMOGLOBIN 30.7 PG (27.0-34.0); MEAN PLATELET VOLUME 6.7 FL (7.0-11.0); MONO % 4.4 % (0.0-8.0); MONOCYTE # 0.5 TH/MM3 (0-0.9); NEUT % 91.6 % (16.0-70.0); PLATELET COUNT 246 TH/MM3 (150-450); RED BLOOD COUNT 4.19 MIL/MM3 (4.00-5.30); RED CELL DISTRIBUTION WIDTH 14.6 % (11.6-17.2)
[2017-08-10 14:36] LABS: ALBUMIN 3.1 GM/DL (3.4-5.0); AST (GOT) 33 U/L (15-37); BICARBONATE 27.3 MEQ/L (21.0-32.0); BLOOD UREA NITROGEN 13 MG/DL (7-18); CALCIUM 8.4 MG/DL (8.5-10.1); CHLORIDE 97 MEQ/L (98-107); CREATININE 0.62 MG/DL (0.50-1.00); GLOMERULAR FILTRATION RATE 91 ML/MIN (>89); GLUCOSE,RANDOM 218 MG/DL (74-106); SODIUM (NA) 131 MEQ/L (136-145)
[2017-08-10 14:37] LABS: ALT (GPT) 35 U/L (10-53)
[2017-08-10 14:40] LABS: ALKALINE PHOSPHATASE 96 U/L (45-117); TOTAL BILIRUBIN ADULT 0.4 MG/DL (0.2-1.0); TOTAL PROTEIN 6.8 GM/DL (6.4-8.2)
[2017-08-10] MEDS: cefTRIAXone INJ 1,000 MG in SODIUM CHLORIDE 0.9% INJ 100 ML IV SCH (15:06)
[2017-08-10] MEDS: cloNIDine HCL 0.1 MG TAB PO PRN ×2 (15:06→21:33)
--- NOTE | 2017-08-10 15:52 | ECHRPT ---
Indication: afib and flutter CONCLUSIONS Normal left ventricular size. Wall thickness is normal. The left ventricular systolic function is low normal with an estimated ejection fraction in the rang e of 50- 55%. The left atrial size is [id number] dilated. The aortic root and proximal ascending aorta are not well visualized. Moderate mitral valve regurgitation. there is mild tricuspid valve regurgitation. The pulmonary valve is not well visualized. BP: / HR: Rhythm: MEASUREMENTS (Male / Female) Normal Values Technical Quality:Good 2D ECHO LV Diastolic Diameter PLAX 4.3 cm 4.2 - 5.9 / 3.9 - 5.3 cm LV Systolic Diameter PLAX 3.3 cm IVS Diastolic Thickness 1.2 cm 0.6 - 1.0 / 0.6 - 0.9 cm LVPW Diastolic Thickness 0.9 cm 0.6 - 1.0 / 0.6 - 0.9 cm LV Relative Wall Thickness 0.5 RV Internal Dim ED PLAX 2.4 cm M-MODE Aortic Root Diameter MM 2.8 cm LA Systolic Diameter MM 4.7 cm LA Ao Ratio MM 1.7 AV Cusp Separation MM 1.6 cm DOPPLER Mitral E Point Velocity 60.7 cm/s Mitral A Point Velocity 76.0 cm/s Mitral E to A Ratio 0.8 LV E' Lateral Velocity 10.7 cm/s Mitral E to LV E' Lateral Ratio 5.7 TR Peak Velocity 294.0 cm/s TR Peak Gradient 34.6 mmHg Right Atrial Pressure 10.0 mmHg Pulmonary Artery Systolic Pressu 44.6 mmHg Right Ventricular Systolic Press 44.6 mmHg FINDINGS LEFT VENTRICLE Normal left ventricular size. Wall thickness is normal. The left ventricular systolic function is low normal with an estimated ejection fraction in the rang e of 50- 55%. RIGHT VENTRICLE Normal right ventricular size and systolic function. LEFT ATRIUM The left atrial size is jyjk-ua-kaovjjixyt dilated. RIGHT ATRIUM The right atrial size is normal. ATRIAL SEPTUM Normal atrial septal thickness without atrial level shunting by limited color doppler interrogation. AORTA The aortic root and proximal ascending aorta are not well visualized. MITRAL VALVE Structurally normal mitral valve. Moderate mitral valve regurgitation. AORTIC VALVE Trileaflet aortic valve. No aortic valve stenosis or regurgitation. TRICUSPID VALVE Structurally normal tricuspid valve.there is mild tricuspid valve regurgitation. PULMONARY VALVE The pulmonary valve is not well visualized. PERICARDIUM No pericardial effusion. Viktoria Rick MD, FACC (Electronically Signed) Final Date:10 August 2017 15:51
[2017-08-10] MEDS: LATANOPROST 0.005% OPHT SOLN 2.5 ML BTL EACH EYE SCH (20:36)
[2017-08-10] MEDS: MIRTAZAPINE 15 MG TAB PO SCH (20:37)
[2017-08-10] MEDS: MONTELUKAST SODIUM 10 MG TAB PO SCH (20:37)
[2017-08-10] MEDS: PRAVASTATIN SOD 20 MG TAB PO SCH (20:37)
[2017-08-10] MEDS ORDERED: PHARMACY ORDERED LAB ONE (20:45)
[2017-08-11] VITALS (8 sets, daily range): BP systolic 77–180; BP diastolic 61–103; PULSE 74–96; RESP 14–22; TEMP 97–98.3; O2SAT 92–98
[2017-08-11] MEDS: methylPREDNISolone SOD SUCC 125 MG/2 ML VIAL IV PUSH SCH ×4 (00:19→22:26)
[2017-08-11] MEDS: CHLORHEXIDINE GLUCONATE 2 % 1 PACK (2 CLOTHS) TOP SCH (04:00)
[2017-08-11] MEDS: RESP: ALBUTEROL 2.5 MG/IPRATROPIUM 0.5 MG NEB (SCH) INH ×4 (05:05→23:48)
[2017-08-11] MEDS: PANTOPRAZOLE SODIUM 40 MG VIAL IV PUSH SCH (09:00)
[2017-08-11] MEDS: VANCOMYCIN INJ 1,300 MG in SODIUM CHLORID 0.9% 500 ML INJ 500 ML IV SCH ×2 (09:00→21:00)
[2017-08-11] MEDS: TIMOLOL MALEATE 0.5% OPHT SOLN 5 ML BTL EACH EYE SCH ×2 (09:45→22:34)
[2017-08-11] MEDS: DORZOLAMIDE 2% OPTH SOLN 200 DROP/10 ML BTLO RIGHT EYE SCH ×2 (09:46→22:33)
[2017-08-11] MEDS: AZITHROMYCIN 250 MG TAB PO SCH (09:46)
[2017-08-11] MEDS: guaiFENesin E.R. 600 MG TAB PO SCH ×2 (09:46→22:27)
[2017-08-11] MEDS: LOSARTAN 50 MG TAB PO SCH (09:47)
[2017-08-11] MEDS: OSELTAMIVIR PHOSPHATE 75 MG CAP PO SCH ×2 (09:47→21:00)
[2017-08-11] MEDS: HYDROCHLOROTHIAZIDE 12.5 MG CAP PO SCH (09:47)
[2017-08-11] MEDS: RIVAROXABAN 20 MG TAB PO SCH (09:47)
[2017-08-11] MEDS: DOCUSATE SODIUM 50 MG/SENNA 8.6 MG TAB PO SCH ×2 (09:47→22:27)
[2017-08-11] MEDS: SODIUM CHLORIDE 0.9% FLUSH 10 ML FLUSH IV FLUSH SCH ×2 (09:48→22:28)
--- NOTE | 2017-08-11 11:35 | HHI.FPPN ---
Subjective Remarks Patient states that she is doing better medically today, but psychologically no due to her 's recent . She had a few points of confusion during our interview with her this morning. She stated that she was seated at her dining room table yesterday. Also thought she was home with her sister yesterday. Otherwise, no chest pain, no shortness of breath, no fevers or chills, no abdominal pain, no nausea or vomiting, had 1 bowel movement yesterday at bedside commode. Face that she only coughs when she forces herself to. (Brit Rios MD R1) Objective Vitals Vital Signs Date Time Temp Pulse Resp B/P (MAP) Pulse Ox O2 Delivery O2 Flow Rate FiO2 08/11/17 09:21 98 Nasal Cannula 4.00 08/11/17 09:00 97 Nasal Cannula 4.00 08/11/17 06:03 98.2 94 20 168/78 (108) 98 08/11/17 00:15 Nasal Cannula 4.00 08/11/17 00:00 97.0 92 22 178/103 (128) 96 08/10/17 22:00 75 08/10/17 20:47 96 Nasal Cannula 4.00 08/10/17 20:00 90 08/10/17 20:00 98.9 90 28 181/96 (124) 95 08/10/17 20:00 98 Nasal Cannula 4.00 08/10/17 18:00 98 08/10/17 16:00 92 08/10/17 16:00 96 Nasal Cannula 4.00 08/10/17 16:00 98.6 92 20 161/83 (109) 96 08/10/17 14:00 88 08/10/17 12:00 96 Nasal Cannula 4.00 08/10/17 12:00 98.6 82 18 157/84 (108) 96 08/10/17 12:00 82 I/O 08/10/17 08/10/17 08/10/17 08/11/17 08/11/17 08/11/17 07:00 15:00 23:00 07:00 15:00 23:00 Intake Total 480 ml 1473 ml 240 ml Output Total 1250 ml 400 ml 500 ml 1600 ml Balance -770 ml -400 ml 973 ml -1360 ml Intake Oral 480 ml 960 ml 240 ml IV Total 513 ml Output Urine Total 1250 ml 400 ml 500 ml 1600 ml # Bowel Movements 1 0 (Brit Rios MD R1) Result Diagram: 08/10/17 1315 08/10/17 1315 Imaging Last Impressions Chest X-Ray 08/09/17 0000 Signed Impressions: Service Date/Time: Wednesday, August 09, 2017 06:38 - CONCLUSION: Increasing airspace disease. Jaswinder Rossi MD Objective Remarks CONSTITUTIONAL/GEN: normally nourished, sitting up in bed, in no acute distress , on nasal cannula. EYES: conjunctiva normal, sclerae clear LUNGS: Diffuse soft wheezes. No retractions. CARDIOVASCULAR: RR without murmur or gallop. Distant heart sounds. No significant edema. GI/ABD: soft without masses, without organomegaly. Bowel sounds present NEURO: No focal deficits. SKIN: color normal, no rashes noted, no bruising. MUSC: Extremities are normal in appearance. Mild 1+ edema in bilateral LEs to mid abdul. PSYCH/MENTAL STATUS: Awake, alert, and oriented x3, but thought she was in [place]. (Brit Rios MD R1) A/P Assessment and Plan 86-year-old female with recent influenza diagnosis who presents with worsening upper respiratory symptoms. Basic labs and CXR were ordered in the ED revealing normal white count but notable left shift, hyponatremia, and CXR notable for a possible consolidation in the left lung base. In the outpatient setting she was being treated for pneumonia which was diagnosed 08/07, with 3 doses of Tamiflu completed. She is noted to have hypoxia upon ED arrival documented at 83% with tachycardia. She is also noted to have tachypnea. She will be admitted for further workup and evaluation. She meets inpatient criteria based on hypoxia on admission, evidence of pneumonia on CXR, and hyponatremia. Discharge Planning Anticipate home tomorrow if continues improvement. (Brit Rios MD R1) Attending Attestation Patient seen and examined. Case reviewed and discussed with the resident team. Agree with plan of care as discussed with me and documented in the resident note. (Radha Gusman MD) Problem List: (1) Pneumonia ICD Codes: J18.9 - Pneumonia, unspecified organism Status: Acute Plan: Findings: Clinical hypoxia with shortness of breath reported. History of recent cruise which increased risk for atypical sources such as Legionella. CXR with right basilar consolidation. Cx negative for Legionella and Strep pneumo Plan: * Admit inpatient * Vital signs every 4 hours * Rocephin 1 g IV q24hr and azithromycin 500 mg PO q24hr, first doses in ED , started on Vancomycin dosed by pharmacy (08/09- ) * Respiratory support with oxygen via nasal cannula with O2 sat greater than 92 % escalate as needed. Of note patient is on CPAP intermittently at home but has not used it in over a week * Duonebs every 4 hours scheduled * Albuterol every 4 hours PRN wheezing/sob * Continue Singulair at 10 mg nightly * Decreased Solumedrol 60mg to q8h due to confusion this morning 08/11 * Incentive spirometry * Repeat CXR PA and lateral today 08/11 (2) Influenza ICD Codes: J11.1 - Influenza due to unidentified influenza virus with other respiratory manifestations Status: Acute Plan: Patient was diagnosed with influenza at a hospital near [facility] on 08/07. She is already being treated with Tamiflu with 3 doses completed starting 08/07 in the AM. * Continue Tamiflu at 75 mg PO BID, patient will need 10 total doses * Given her age, she is at high risk for severe infection warranting the overnight close monitoring given worsening of her symptoms at home * Repeat Influenza testing negative at this stay (3) Asthma in adult ICD Codes: J45.909 - Asthma in adult Status: Chronic Plan: Noted. May be contributing to current symptoms noted above. Management as above. (4) Hyponatremia ICD Codes: E87.1 - Hypo-osmolality and hyponatremia Status: Acute Plan: Noted. Patient does not have any severe symptoms noted but does have a loss of appetite and fatigue. Patient does have some weakness and worsening of her total body aches and hyponatremia may be contributing to the symptoms. * Continue monitoring * D/c'd IVF 08/10 * Will monitor on telemetry given her metabolic dyscrasias (5) Atrial fibrillation ICD Codes: I48.91 - Unspecified atrial fibrillation Status: Chronic Plan: Chronic. Patient is on Xarelto. Rate is approximately 100 during examination and rhythm appears regular on telemetry. She does not appear to be on a beta sonali. * EKG * Monitor on telemetry * If patient's rhythm becomes more rapid will treat with beta sonali and initiate further workup as needed (6) HTN (hypertension) ICD Codes: I10 - Essential (primary) hypertension Status: Chronic Plan: Chronic hypertension. Patient is on losartan/HCTZ 50-12.5 mg daily. She also has chronic hyperlipidemia treated with pravastatin 20 mg nightly. * Continue home dose antihypertensives and statin * Clonidine 0.1mg PO PRN for SBP > 180/ and/or DBP > 100 (7) Glaucoma ICD Codes: H40.9 - Glaucoma Status: Chronic Plan: Chronic glaucoma. No acute symptoms today. She is on timolol drops bilaterally twice a day, dorzolamide drops in the right eye twice a day, latanoprost drops bilaterally at night. * Continue eyedrops as prescribed (8) Depression ICD Codes: F32.9 - Major depressive disorder, single episode, unspecified Status: Chronic Plan: Chronic depression supposed based on medication list. She is on mirtazapine 30 mg nightly and also on Ambien 5 mg nightly. Both medications may be used for sleep. * Continue medications at home doses (9) Fluids/Electrolytes/Nutrition/Prophylaxis Status: Acute Plan: Fluids: tolerating PO/NS @ 84 ml/hr Electrolytes: hypoNa, monitor and replete as needed Nutrition: regular diet DVT Prophylaxis: Early ambulation. Xarelto/SCDs. GI Prophylaxis: Not indicated PRN anti-HTN: Clonidine 0.1mg PO PRN for SBP > 180/ and/or DBP > 100 (Brit Rios MD R1) Problem Qualifiers (1) Pneumonia: Qualified Codes: J18.1 - Lobar pneumonia, unspecified organism (2) Atrial fibrillation: Qualified Codes: I48.2 - Chronic atrial fibrillation (3) HTN (hypertension): Qualified Codes: I10 - Essential (primary) hypertension Brit Rios MD R1 Aug 11, 2017 11:35 Radha Gusman MD Aug 11, 2017 13:24
[2017-08-11 13:31] LABS: AUTOMATED NEUTROPHIL # 9.6 TH/MM3 (1.8-7.7); BASOPHIL % 0.1 % (0.0-2.0); HEMATOCRIT 37.9 % (35.0-46.0); HEMOGLOBIN 12.5 GM/DL (11.6-15.3); LYMPH % 4.2 % (9.0-44.0); LYMPHOCYTE # 0.4 TH/MM3 (1.0-4.8); MEAN CELL VOLUME 92.5 FL (80.0-100.0); MEAN CORPUSCULAR HEMOGLOBIN 30.5 PG (27.0-34.0); MONO % 3.3 % (0.0-8.0); MONOCYTE # 0.3 TH/MM3 (0-0.9); NEUT % 92.4 % (16.0-70.0); PLATELET COUNT 276 TH/MM3 (150-450); RED CELL DISTRIBUTION WIDTH 14.3 % (11.6-17.2); WHITE BLOOD COUNT 10.3 TH/MM3 (4.0-11.0)
[2017-08-11 13:43] LABS: AST (GOT) 32 U/L (15-37); BICARBONATE 28.6 MEQ/L (21.0-32.0); BLOOD UREA NITROGEN 15 MG/DL (7-18); CALCIUM 8.5 MG/DL (8.5-10.1); CHLORIDE 97 MEQ/L (98-107); CREATININE 0.73 MG/DL (0.50-1.00); GLOMERULAR FILTRATION RATE 75 ML/MIN (>89); GLUCOSE,RANDOM 257 MG/DL (74-106); SODIUM (NA) 134 MEQ/L (136-145)
[2017-08-11 13:44] LABS: ALT (GPT) 35 U/L (10-53)
[2017-08-11 13:46] LABS: ALKALINE PHOSPHATASE 103 U/L (45-117); TOTAL BILIRUBIN ADULT 0.4 MG/DL (0.2-1.0); TOTAL PROTEIN 6.5 GM/DL (6.4-8.2)
--- NOTE | 2017-08-11 15:23 | RADRPT ---
EXAM DATE/TIME: 08/11/2017 13:11 [place] COMPARISON: CHEST PA & LAT, February 18, 2017, 14:16. INDICATIONS : Short of breath and cough MEDICAL HISTORY : Carcinoma, breast. Hypertension SURGICAL HISTORY : Mastectomy, bilateral. ENCOUNTER: Subsequent ACUITY: 4 - 6 days PAIN SCORE: 0/10 LOCATION: chest FINDINGS: The heart is stable. Scattered atelectatic changes are noted bilaterally. CONCLUSION: 1. Scattered atelectatic changes bilaterally. Jorge Girard MD on August 11, 2017 at 15:05 Board Certified Radiologist. This report was verified electronically.
[2017-08-11] MEDS: cefTRIAXone INJ 1,000 MG in SODIUM CHLORIDE 0.9% INJ 100 ML IV SCH (17:00)
[2017-08-11] MEDS ORDERED: PHARMACY ORDERED LAB ONE ×2 (20:45)
[2017-08-11] MEDS: MIRTAZAPINE 15 MG TAB PO SCH (22:26)
[2017-08-11] MEDS: MONTELUKAST SODIUM 10 MG TAB PO SCH (22:27)
[2017-08-11] MEDS: PRAVASTATIN SOD 20 MG TAB PO SCH (22:27)
[2017-08-11] MEDS: LATANOPROST 0.005% OPHT SOLN 2.5 ML BTL EACH EYE SCH (22:34)
[2017-08-12] VITALS (10 sets, daily range): BP systolic 149–182; BP diastolic 89–110; PULSE 67–108; RESP 16–20; TEMP 92.9–98.2; O2SAT 92–95
[2017-08-12] MEDS: ZOLPIDEM TARTRATE 10 MG TAB PO PRN ×2 (00:51→22:41)
[2017-08-12] MEDS: CHLORHEXIDINE GLUCONATE 2 % 1 PACK (2 CLOTHS) TOP SCH (04:00)
[2017-08-12] MEDS: RESP: ALBUTEROL 2.5 MG/IPRATROPIUM 0.5 MG NEB (SCH) INH ×6 (04:28→23:17)
[2017-08-12] MEDS: methylPREDNISolone SOD SUCC 125 MG/2 ML VIAL IV PUSH SCH ×3 (06:24→20:41)
[2017-08-12] MEDS ORDERED: PHARMACY ORDERED LAB ONE (08:45)
[2017-08-12] MEDS: OSELTAMIVIR PHOSPHATE 75 MG CAP PO SCH (09:00)
--- NOTE | 2017-08-12 09:03 | HHI.FPPN ---
Subjective Remarks Pt states that she is doing well this morning. She states that she is weaker than her baseline. She is amenable to going to rehab for PT. She states that she is not going to make arrangements for her until she "feels and looks human again." No fever/chills, no CP, no SOB, no abdominal pain, no nausea/vomiting, no BM yesterday. (Brit Rios MD R1) Objective Vitals Vital Signs Date Time Temp Pulse Resp B/P (MAP) Pulse Ox O2 Delivery O2 Flow Rate FiO2 08/12/17 08:36 95 Nasal Cannula 3.50 08/12/17 04:00 98.2 90 16 173/101 (125) 95 08/12/17 00:00 97.5 95 16 176/98 (124) 93 08/11/17 22:00 Nasal Cannula 4.00 08/11/17 20:00 98.3 96 16 77/73 (74) 94 08/11/17 20:00 75 08/11/17 17:24 94 Nasal Cannula 4.00 08/11/17 16:00 97.6 91 14 180/102 (128) 96 08/11/17 12:00 97.6 90 14 172/61 (98) 94 08/11/17 09:21 98 Nasal Cannula 4.00 I/O 08/11/17 08/11/17 08/11/17 08/12/17 08/12/17 08/12/17 07:00 15:00 23:00 07:00 15:00 23:00 Intake Total 240 ml 720 ml 240 ml Output Total 1600 ml 500 ml Balance -1360 ml 720 ml -260 ml Intake Oral 240 ml 720 ml 240 ml Output Urine Total 1600 ml 500 ml # Voids 2 # Bowel Movements 0 (Brit Rios MD R1) Result Diagram: 08/11/17 1225 08/11/17 1225 Objective Remarks CONSTITUTIONAL/GEN: normally nourished, sitting up in bed, in no acute distress , on nasal cannula. EYES: conjunctiva normal, sclerae clear LUNGS: Diffuse soft wheezes. No retractions. CARDIOVASCULAR: RR without murmur or gallop. Distant heart sounds. No significant edema. GI/ABD: soft without masses, without organomegaly. Bowel sounds present NEURO: No focal deficits. SKIN: color normal, no rashes noted, no bruising. MUSC: Extremities are normal in appearance. SCDs in place. PSYCH/MENTAL STATUS: Awake, alert, and oriented x3. (Brit Rios MD R1) A/P Assessment and Plan 86-year-old female with recent influenza diagnosis who presents with worsening upper respiratory symptoms. Basic labs and CXR were ordered in the ED revealing normal white count but notable left shift, hyponatremia, and CXR notable for a possible consolidation in the left lung base. In the outpatient setting she was being treated for pneumonia which was diagnosed 08/07, with 3 doses of Tamiflu completed. She is noted to have hypoxia upon ED arrival documented at 83% with tachycardia. She is also noted to have tachypnea. She will be admitted for further workup and evaluation. She meets inpatient criteria based on hypoxia on admission, evidence of pneumonia on CXR, and hyponatremia. Discharge Planning Anticipate home tomorrow after Vanc day 5 dose. (Brit Rios MD R1) Attending Attestation Patient seen and examined. Case reviewed and discussed with the resident team. Agree with plan of care as discussed with me and documented in the resident note. (Radha Gusman MD) Problem List: (1) Pneumonia ICD Codes: J18.9 - Pneumonia, unspecified organism Status: Acute Plan: Findings: Clinical hypoxia with shortness of breath reported. History of recent cruise which increased risk for atypical sources such as Legionella. CXR with right basilar consolidation. Cx negative for Legionella and Strep pneumo Plan: * Admit inpatient * Vital signs every 4 hours * Rocephin 1 g IV q24hr and azithromycin 500 mg PO q24hr, first doses in ED , started on Vancomycin dosed by pharmacy (08/09- ) * Respiratory support with oxygen via nasal cannula with O2 sat greater than 92 % escalate as needed. Of note patient is on CPAP intermittently at home but has not used it in over a week * Duonebs every 4 hours scheduled * Albuterol every 4 hours PRN wheezing/sob * Continue Singulair at 10 mg nightly * Solumedrol 60mg po q8h * Incentive spirometry * Repeat CXR PA and lateral on 08/11 showed improvement, but scattered bilateral atelectasis changes * Patient still on NC, ordered walk test to be done with Respiratory therapy (2) Influenza ICD Codes: J11.1 - Influenza due to unidentified influenza virus with other respiratory manifestations Status: Acute Plan: Patient was diagnosed with influenza at a hospital near [facility] on 08/07. She is already being treated with Tamiflu with 3 doses completed starting 08/07 in the AM. * Continue Tamiflu at 75 mg PO BID, patient will need 10 total doses * Given her age, she is at high risk for severe infection warranting the overnight close monitoring given worsening of her symptoms at home * Repeat Influenza testing negative at this stay (3) Asthma in adult ICD Codes: J45.909 - Asthma in adult Status: Chronic Plan: Noted. May be contributing to current symptoms noted above. Management as above. (4) Hyponatremia ICD Codes: E87.1 - Hypo-osmolality and hyponatremia Status: Acute Plan: Noted. Patient does not have any severe symptoms noted but does have a loss of appetite and fatigue. Patient does have some weakness and worsening of her total body aches and hyponatremia may be contributing to the symptoms. * Continue monitoring * D/c'd IVF 08/10 * Will monitor on telemetry given her metabolic dyscrasias * PT recommended rehab due to her weakness, case management is setting one up for her (5) Atrial fibrillation ICD Codes: I48.91 - Unspecified atrial fibrillation Status: Chronic Plan: Chronic. Patient is on Xarelto. Rate is approximately 100 during examination and rhythm appears regular on telemetry. She does not appear to be on a beta sonali. * EKG * Monitor on telemetry * If patient's rhythm becomes more rapid will treat with beta sonali and initiate further workup as needed (6) HTN (hypertension) ICD Codes: I10 - Essential (primary) hypertension Status: Chronic Plan: Chronic hypertension. Patient is on losartan/HCTZ 50-12.5 mg daily. She also has chronic hyperlipidemia treated with pravastatin 20 mg nightly. * Continue home dose antihypertensives and statin * Clonidine 0.1mg PO PRN for SBP > 180/ and/or DBP > 100 (7) Glaucoma ICD Codes: H40.9 - Glaucoma Status: Chronic Plan: Chronic glaucoma. No acute symptoms today. She is on timolol drops bilaterally twice a day, dorzolamide drops in the right eye twice a day, latanoprost drops bilaterally at night. * Continue eyedrops as prescribed (8) Depression ICD Codes: F32.9 - Major depressive disorder, single episode, unspecified Status: Chronic Plan: Chronic depression supposed based on medication list. She is on mirtazapine 30 mg nightly and also on Ambien 5 mg nightly. Both medications may be used for sleep. * Continue medications at home doses (9) Fluids/Electrolytes/Nutrition/Prophylaxis Status: Acute Plan: Fluids: tolerating PO Electrolytes: hypoNa, monitor and replete as needed Nutrition: regular diet DVT Prophylaxis: Early ambulation. Xarelto/SCDs. GI Prophylaxis: Not indicated PRN anti-HTN: Clonidine 0.1mg PO PRN for SBP > 180/ and/or DBP > 100 (Brit Rios MD R1) Problem Qualifiers (1) Pneumonia: Qualified Codes: J18.1 - Lobar pneumonia, unspecified organism (2) Atrial fibrillation: Qualified Codes: I48.2 - Chronic atrial fibrillation (3) HTN (hypertension): Qualified Codes: I10 - Essential (primary) hypertension Brit Rios MD R1 Aug 12, 2017 09:03 Radha Gusman MD Aug 12, 2017 10:54
[2017-08-12] MEDS: RIVAROXABAN 20 MG TAB PO SCH (09:06)
[2017-08-12] MEDS: PANTOPRAZOLE SODIUM 40 MG VIAL IV PUSH SCH (09:07)
[2017-08-12] MEDS: DOCUSATE SODIUM 50 MG/SENNA 8.6 MG TAB PO SCH ×2 (09:07→20:13)
[2017-08-12] MEDS: guaiFENesin E.R. 600 MG TAB PO SCH ×2 (09:07→20:13)
[2017-08-12] MEDS: HYDROCHLOROTHIAZIDE 12.5 MG CAP PO SCH (09:07)
[2017-08-12] MEDS: AZITHROMYCIN 250 MG TAB PO SCH (09:07)
[2017-08-12] MEDS: LOSARTAN 50 MG TAB PO SCH (09:07)
[2017-08-12] MEDS: TIMOLOL MALEATE 0.5% OPHT SOLN 5 ML BTL EACH EYE SCH ×2 (09:08→20:17)
[2017-08-12] MEDS: DORZOLAMIDE 2% OPTH SOLN 200 DROP/10 ML BTLO RIGHT EYE SCH ×2 (09:08→20:17)
[2017-08-12] MEDS: SODIUM CHLORIDE 0.9% FLUSH 10 ML FLUSH IV FLUSH SCH ×2 (09:08→20:17)
[2017-08-12 10:24] LABS: CREATININE 0.5 MG/DL (0.50-1.00)
[2017-08-12] MEDS: VANCOMYCIN INJ 1,300 MG in SODIUM CHLORID 0.9% 500 ML INJ 500 ML IV SCH ×2 (10:25→20:33)
[2017-08-12] MEDS: cloNIDine HCL 0.1 MG TAB PO PRN ×2 (16:18→20:44)
[2017-08-12] MEDS: cefTRIAXone INJ 1,000 MG in SODIUM CHLORIDE 0.9% INJ 100 ML IV SCH (16:20)
[2017-08-12] MEDS: PRAVASTATIN SOD 20 MG TAB PO SCH (20:13)
[2017-08-12] MEDS: MIRTAZAPINE 15 MG TAB PO SCH (20:13)
[2017-08-12] MEDS: MONTELUKAST SODIUM 10 MG TAB PO SCH (20:13)
[2017-08-12] MEDS: LATANOPROST 0.005% OPHT SOLN 2.5 ML BTL EACH EYE SCH (20:14)
[2017-08-13] VITALS: BP 173/100; PULSE 77; RESP 20; TEMP 98; O2SAT 96
[2017-08-13] MEDS: CHLORHEXIDINE GLUCONATE 2 % 1 PACK (2 CLOTHS) TOP SCH (04:00)
[2017-08-13] MEDS: RESP: ALBUTEROL 2.5 MG/IPRATROPIUM 0.5 MG NEB (SCH) INH (04:35)
[2017-08-13] MEDS: methylPREDNISolone SOD SUCC 125 MG/2 ML VIAL IV PUSH SCH ×2 (04:50→14:00)
[2017-08-13 07:54] VITALS: PULSE 84
[2017-08-13] MEDS: guaiFENesin E.R. 600 MG TAB PO SCH (08:02)
[2017-08-13] MEDS: cloNIDine HCL 0.1 MG TAB PO PRN (08:02)
[2017-08-13] MEDS: LOSARTAN 50 MG TAB PO SCH (08:02)
[2017-08-13] MEDS: DOCUSATE SODIUM 50 MG/SENNA 8.6 MG TAB PO SCH (08:02)
[2017-08-13] MEDS: HYDROCHLOROTHIAZIDE 12.5 MG CAP PO SCH (08:03)
[2017-08-13] MEDS: DORZOLAMIDE 2% OPTH SOLN 200 DROP/10 ML BTLO RIGHT EYE SCH (08:03)
[2017-08-13] MEDS: AZITHROMYCIN 250 MG TAB PO SCH (08:03)
[2017-08-13] MEDS: RIVAROXABAN 20 MG TAB PO SCH (08:03)
[2017-08-13] MEDS: SODIUM CHLORIDE 0.9% FLUSH 10 ML FLUSH IV FLUSH SCH (08:04)
[2017-08-13] MEDS: TIMOLOL MALEATE 0.5% OPHT SOLN 5 ML BTL EACH EYE SCH (08:04)
[2017-08-13] MEDS: PANTOPRAZOLE SODIUM 40 MG VIAL IV PUSH SCH (08:05)
[2017-08-13 08:16] VITALS: BP 188/112; PULSE 88; RESP 18; TEMP 97.7; O2SAT 94
[2017-08-13] MEDS: VANCOMYCIN INJ 1,300 MG in SODIUM CHLORID 0.9% 500 ML INJ 500 ML IV SCH (08:16)
[2017-08-13] MEDS: RESP: ALBUTEROL 2.5 MG/3 ML NEB (PRN) NEB (10:49)
[2017-08-13 10:51] VITALS: O2SAT 96
[2017-08-13 12:50] VITALS: BP 163/98; PULSE 85; RESP 20; TEMP 97.9; O2SAT 93
[2017-08-13] MEDS ORDERED: SENN1TAB PO (13:49)
[2017-08-13] MEDS ORDERED: ALBU0.08 NEB (13:49)
[2017-08-13] MEDS ORDERED: PANT40TA3 PO (13:49)
[2017-08-13] MEDS ORDERED: LEVO500T8 PO (13:49)
[2017-08-13] MEDS ORDERED: PRED50 PO (13:49)
[2017-08-13] MEDS ORDERED: HYDR12.57 PO (13:49)
--- NOTE | 2017-08-13 13:50 | HHI.DCPOC ---
Discharge Care Plan Diagnosis: (1) Hyponatremia (2) Pneumonia (3) Influenza Goals to Promote Your Health * To prevent worsening of your condition and complications * To maintain your health at the optimal level Directions to Meet Your Goals Take your medications as prescribed Follow your dietary instruction Follow activity as directed Keep your appointments as scheduled Take your immunizations and boosters as scheduled If your symptoms worsen call your PCP, if no PCP go to Urgent Care Center or Emergency Room Smoking is Dangerous to Your Health. Avoid second hand smoke Call the 24-hour hour crisis hotline for domestic abuse at Brit Rios MD R1 Aug 13, 2017 13:50
--- NOTE | 2017-08-13 13:50 | HHI.DCPOC ---
Discharge Care Plan Diagnosis: (1) Hyponatremia (2) Pneumonia (3) Influenza Goals to Promote Your Health * To prevent worsening of your condition and complications * To maintain your health at the optimal level Directions to Meet Your Goals Take your medications as prescribed Follow your dietary instruction Follow activity as directed Keep your appointments as scheduled Take your immunizations and boosters as scheduled If your symptoms worsen call your PCP, if no PCP go to Urgent Care Center or Emergency Room Smoking is Dangerous to Your Health. Avoid second hand smoke Call the 24-hour hour crisis hotline for domestic abuse at Brit Rios MD R1 Aug 13, 2017 13:50
--- NOTE | 2017-08-13 13:50 | HHI.DCPOC ---
Discharge Care Plan Diagnosis: (1) Hyponatremia (2) Pneumonia (3) Influenza Goals to Promote Your Health * To prevent worsening of your condition and complications * To maintain your health at the optimal level Directions to Meet Your Goals Take your medications as prescribed Follow your dietary instruction Follow activity as directed Keep your appointments as scheduled Take your immunizations and boosters as scheduled If your symptoms worsen call your PCP, if no PCP go to Urgent Care Center or Emergency Room Smoking is Dangerous to Your Health. Avoid second hand smoke Call the 24-hour hour crisis hotline for domestic abuse at Brit Rios MD R1 Aug 13, 2017 13:50
--- NOTE | 2017-08-13 15:13 | HHI.FPPN ---
Subjective Remarks Patient getting breathing treatment when entering room. Doing well on 2 L nasal cannula. No new complaints or concerns. RN reports desaturation to 86% however noticed that the oxygen tubing was kinked. Immediately improved to 96% after fixing the tubing. Notice not to have BM since 08/11/2016. No abdominal pain. Eating well. Mental status improving. (Josh Maharaj MD, R3) Objective Vitals Vital Signs Date Time Temp Pulse Resp B/P (MAP) Pulse Ox O2 Delivery O2 Flow Rate FiO2 08/13/17 12:50 97.9 85 20 163/98 (119) 93 08/13/17 12:20 96 Nasal Cannula 3.00 08/13/17 10:51 96 Nasal Cannula 3.00 08/13/17 08:16 97.7 88 18 188/112 (137) 94 08/13/17 07:54 84 08/13/17 00:00 98.0 77 20 173/100 (124) 96 08/12/17 21:24 94 Nasal Cannula 3.00 08/12/17 20:00 98 08/12/17 20:00 97.9 108 20 94 08/12/17 20:00 182/90 (120) Automatic Cuff 08/12/17 20:00 Nasal Cannula 4.00 08/12/17 17:54 149/99 (116) 08/12/17 16:00 92.9 93 20 182/110 (134) 94 I/O 08/12/17 08/12/17 08/12/17 08/13/17 08/13/17 08/13/17 06:59 14:59 22:59 06:59 14:59 22:59 Intake Total 240 ml 1093 ml 500 ml Output Total 500 ml 850 ml Balance -260 ml 1093 ml -850 ml 500 ml Intake Oral 240 ml 480 ml IV Total 613 ml 500 ml Output Urine Total 500 ml 850 ml # Voids 3 (Josh Maharaj MD, R3) Result Diagram: 08/11/17 1225 08/12/17 0640 Imaging Last 72 hours Impressions Chest X-Ray 08/11/17 0000 Signed Impressions: Service Date/Time: Friday, August 11, 2017 13:11 - CONCLUSION: 1. Scattered atelectatic changes bilaterally. Jorge Girard MD Objective Remarks CONSTITUTIONAL/GEN: normally nourished, sitting up in bed, in no acute distress , on nasal cannula. EYES: conjunctiva normal, sclerae clear LUNGS: Diffuse soft wheezes. No retractions. CARDIOVASCULAR: RR without murmur or gallop. Distant heart sounds. No significant edema. GI/ABD: soft without masses, without organomegaly. Bowel sounds present NEURO: No focal deficits. SKIN: color normal, no rashes noted, no bruising. MUSC: Extremities are normal in appearance. SCDs in place. PSYCH/MENTAL STATUS: Awake, alert, and oriented x3. (Josh Maharaj MD, R3) A/P Assessment and Plan 86-year-old female with recent influenza diagnosis who presents with worsening upper respiratory symptoms. Basic labs and CXR were ordered in the ED revealing normal white count but notable left shift, hyponatremia, and CXR notable for a possible consolidation in the left lung base. In the outpatient setting she was being treated for pneumonia which was diagnosed 08/07, with 3 doses of Tamiflu completed. She is noted to have hypoxia upon ED arrival documented at 83% with tachycardia. She is also noted to have tachypnea. She will be admitted for further workup and evaluation. She meets inpatient criteria based on hypoxia on admission, evidence of pneumonia on CXR, and hyponatremia. Discharge Planning Anticipate home tomorrow after Vanc day 5 dose. (Josh Maharaj MD, R3) Attending Attestation Patient seen and examined. Case reviewed and discussed with the resident team. Agree with plan of care as discussed with me and documented in the resident note. (Radha Gusman MD) Problem List: (1) Pneumonia ICD Codes: J18.9 - Pneumonia, unspecified organism Status: Acute Plan: Findings: Clinical hypoxia with shortness of breath reported. History of recent cruise which increased risk for atypical sources such as Legionella. CXR with right basilar consolidation. Cx negative for Legionella and Strep pneumo Plan: * Admit inpatient * Vital signs every 4 hours * Rocephin 1 g IV q24hr and azithromycin 500 mg PO q24hr, first doses in ED , started on Vancomycin dosed by pharmacy (08/09-08/13/2017). She has completed 5 days of vancomycin. Will transition to Levaquin 500 mg qd for 3 more days. * Respiratory support with oxygen via nasal cannula with O2 sat greater than 92 % escalate as needed. Of note patient is on CPAP intermittently at home but has not used it in over a week * Duonebs every 4 hours scheduled * Albuterol every 4 hours PRN wheezing/sob * Continue Singulair at 10 mg nightly * Solumedrol 60mg po q8h transition to PO Prednisone 50 mg as an outpatient. * Incentive spirometry * Repeat CXR PA and lateral on 08/11 showed improvement, but scattered bilateral atelectasis changes. * Patient still on NC, ordered walk test to be done with Respiratory therapy (2) Influenza ICD Codes: J11.1 - Influenza due to unidentified influenza virus with other respiratory manifestations Status: Acute Plan: Patient was diagnosed with influenza at a hospital near [facility] on 08/07. She is already being treated with Tamiflu with 3 doses completed starting 08/07 in the AM. * Continue Tamiflu at 75 mg PO BID, patient will need 10 total doses. * Given her age, she is at high risk for severe infection warranting the overnight close monitoring given worsening of her symptoms at home * Repeat Influenza testing negative at this stay (3) Asthma in adult ICD Codes: J45.909 - Asthma in adult Status: Chronic Plan: Noted. May be contributing to current symptoms noted above. Management as above. (4) Hyponatremia ICD Codes: E87.1 - Hypo-osmolality and hyponatremia Status: Acute Plan: Noted. Patient does not have any severe symptoms noted but does have a loss of appetite and fatigue. Patient does have some weakness and worsening of her total body aches and hyponatremia may be contributing to the symptoms. * Continue monitoring * D/c'd IVF 08/10 * Will monitor on telemetry given her metabolic dyscrasias * PT recommended rehab due to her weakness, case management is setting one up for her (5) Atrial fibrillation ICD Codes: I48.91 - Unspecified atrial fibrillation Status: Chronic Plan: Chronic. Patient is on Xarelto. Rate is approximately 100 during examination and rhythm appears regular on telemetry. She does not appear to be on a beta sonali. * EKG * Monitor on telemetry * If patient's rhythm becomes more rapid will treat with beta sonali and initiate further workup as needed (6) HTN (hypertension) ICD Codes: I10 - Essential (primary) hypertension Status: Chronic Plan: Chronic hypertension. Patient is on losartan/HCTZ 50-12.5 mg daily. She also has chronic hyperlipidemia treated with pravastatin 20 mg nightly. * Continue home dose antihypertensives and statin * Clonidine 0.1mg PO PRN for SBP > 180/ and/or DBP > 100 (7) Glaucoma ICD Codes: H40.9 - Glaucoma Status: Chronic Plan: Chronic glaucoma. No acute symptoms today. She is on timolol drops bilaterally twice a day, dorzolamide drops in the right eye twice a day, latanoprost drops bilaterally at night. * Continue eyedrops as prescribed (8) Depression ICD Codes: F32.9 - Major depressive disorder, single episode, unspecified Status: Chronic Plan: Chronic depression supposed based on medication list. She is on mirtazapine 30 mg nightly and also on Ambien 5 mg nightly. Both medications may be used for sleep. * Continue medications at home doses (9) Fluids/Electrolytes/Nutrition/Prophylaxis Status: Acute Plan: Fluids: tolerating PO Electrolytes: hypoNa, resolved Nutrition: regular diet DVT Prophylaxis: Early ambulation. Xarelto/SCDs. GI Prophylaxis: Not indicated PRN anti-HTN: Clonidine 0.1mg PO PRN for SBP > 180/ and/or DBP > 100. (Josh Maharaj MD, R3) Problem Qualifiers (1) Pneumonia: Qualified Codes: J18.1 - Lobar pneumonia, unspecified organism (2) Atrial fibrillation: Qualified Codes: I48.2 - Chronic atrial fibrillation (3) HTN (hypertension): Qualified Codes: I10 - Essential (primary) hypertension Josh Maharaj MD, R3 Aug 13, 2017 15:13 Radha Gusman MD Aug 13, 2017 15:21
--- NOTE | 2017-08-13 15:38 | HHI.DS ---
Discharge Summary Admission Date Aug 08, 2017 at 18:45 Discharge Date: Aug 13, 2017 Admitting Diagnosis pneumonia, influenza (1) Pneumonia Plan: Findings: Clinical hypoxia with shortness of breath reported. History of recent cruise which increased risk for atypical sources such as Legionella. CXR with right basilar consolidation. Cx negative for Legionella and Strep pneumo Plan: * Admit inpatient * Vital signs every 4 hours * Rocephin 1 g IV q24hr and azithromycin 500 mg PO q24hr, first doses in ED , started on Vancomycin dosed by pharmacy (08/09-08/13/2017). She has completed 5 days of vancomycin. Will transition to Levaquin 500 mg qd for 3 more days. * Respiratory support with oxygen via nasal cannula with O2 sat greater than 92 % escalate as needed. Of note patient is on CPAP intermittently at home but has not used it in over a week * Duonebs every 4 hours scheduled * Albuterol every 4 hours PRN wheezing/sob * Continue Singulair at 10 mg nightly * Solumedrol 60mg po q8h transition to PO Prednisone 50 mg as an outpatient. * Incentive spirometry * Repeat CXR PA and lateral on 08/11 showed improvement, but scattered bilateral atelectasis changes. * Patient still on NC, ordered walk test to be done with Respiratory therapy ICD Codes: J18.9 - Pneumonia, unspecified organism Status: Acute (2) Influenza Plan: Patient was diagnosed with influenza at a hospital near [facility] on 08/07. She is already being treated with Tamiflu with 3 doses completed starting 08/07 in the AM. * Continue Tamiflu at 75 mg PO BID, patient will need 10 total doses. * Given her age, she is at high risk for severe infection warranting the overnight close monitoring given worsening of her symptoms at home * Repeat Influenza testing negative at this stay ICD Codes: J11.1 - Influenza due to unidentified influenza virus with other respiratory manifestations Status: Acute (3) Asthma in adult Plan: Noted. May be contributing to current symptoms noted above. Management as above. ICD Codes: J45.909 - Asthma in adult Status: Chronic (4) Hyponatremia Plan: Noted. Patient does not have any severe symptoms noted but does have a loss of appetite and fatigue. Patient does have some weakness and worsening of her total body aches and hyponatremia may be contributing to the symptoms. * Continue monitoring * D/c'd IVF 08/10 * Will monitor on telemetry given her metabolic dyscrasias * PT recommended rehab due to her weakness, case management is setting one up for her ICD Codes: E87.1 - Hypo-osmolality and hyponatremia Status: Acute (5) Atrial fibrillation Plan: Chronic. Patient is on Xarelto. Rate is approximately 100 during examination and rhythm appears regular on telemetry. She does not appear to be on a beta sonali. * EKG * Monitor on telemetry * If patient's rhythm becomes more rapid will treat with beta sonali and initiate further workup as needed ICD Codes: I48.91 - Unspecified atrial fibrillation Status: Chronic (6) HTN (hypertension) Plan: Chronic hypertension. Patient is on losartan/HCTZ 50-12.5 mg daily. She also has chronic hyperlipidemia treated with pravastatin 20 mg nightly. * Continue home dose antihypertensives and statin * Clonidine 0.1mg PO PRN for SBP > 180/ and/or DBP > 100 ICD Codes: I10 - Essential (primary) hypertension Status: Chronic (7) Glaucoma Plan: Chronic glaucoma. No acute symptoms today. She is on timolol drops bilaterally twice a day, dorzolamide drops in the right eye twice a day, latanoprost drops bilaterally at night. * Continue eyedrops as prescribed ICD Codes: H40.9 - Glaucoma Status: Chronic (8) Depression Plan: Chronic depression supposed based on medication list. She is on mirtazapine 30 mg nightly and also on Ambien 5 mg nightly. Both medications may be used for sleep. * Continue medications at home doses ICD Codes: F32.9 - Major depressive disorder, single episode, unspecified Status: Chronic (9) Fluids/Electrolytes/Nutrition/Prophylaxis Plan: Fluids: tolerating PO Electrolytes: hypoNa, resolved Nutrition: regular diet DVT Prophylaxis: Early ambulation. Xarelto/SCDs. GI Prophylaxis: Not indicated PRN anti-HTN: Clonidine 0.1mg PO PRN for SBP > 180/ and/or DBP > 100. Status: Acute Brief History Patient is a 86 year old female who has a history of Asthma, Atrial fibrillation , and recently diagnosed influenza who came to ED for evaluation of congestion, cough, aches all over, pink-tinged sputum. Symptoms first started on the cruise ship last week. No shortness of breath, no chest pain, no pleuritic pain, no stomach pain or diarrhea. Some nausea noted. 08/04. Cruise last week, he on ship. He was found unconscious in the cabin. Patient had sick bay evaluation while on ship as well and it was noted that sodium was low on the ship. Got off at [facility] 08/07, went to nearby hospital for evaluation and she was diagnosed with influenza Type A there. She was started on Tamiflu yesterday afternoon. She was cleared to return home to [place]. She has had decreased appetite and decreased fluid intake. Dr. Boone her PCP evaluated her and gave her some prescriptions when she arrived home. She wasn't feeling better so her stepdaughter and sister decided pt needed to get to the ED. Of note, patient did not get flu shot yet this year. CBC/BMP: 08/11/17 1225 08/12/17 0640 Significant Findings Laboratory Tests Test 08/10/17 20:45 08/11/17 12:25 08/12/17 06:40 Vancomycin Level Trough 12.2 MCG/ML (5.0-10.0) 18.6 MCG/ML (5.0-10.0) Neutrophils (%) (Auto) 92.4 % (16.0-70.0) Lymphocytes (%) (Auto) 4.2 % (9.0-44.0) Neutrophils # (Auto) 9.6 TH/MM3 (1.8-7.7) Lymphocytes # (Auto) 0.4 TH/MM3 (1.0-4.8) Random Glucose 257 MG/DL (74-106) Albumin 3.0 GM/DL (3.4-5.0) Sodium Level 134 MEQ/L (136-145) Chloride Level 97 MEQ/L (98-107) Estimat Glomerular Filtration Rate 75 ML/MIN (>89) Imaging Last Impressions Chest X-Ray 08/11/17 0000 Signed Impressions: Service Date/Time: Friday, August 11, 2017 13:11 - CONCLUSION: 1. Scattered atelectatic changes bilaterally. Jorge Girard MD PE at Discharge CONSTITUTIONAL/GEN: normally nourished, sitting up in bed, in no acute distress , on nasal cannula. EYES: conjunctiva normal, sclerae clear LUNGS: Diffuse soft wheezes. No retractions. CARDIOVASCULAR: RR without murmur or gallop. Distant heart sounds. No significant edema. GI/ABD: soft without masses, without organomegaly. Bowel sounds present NEURO: No focal deficits. SKIN: color normal, no rashes noted, no bruising. MUSC: Extremities are normal in appearance. SCDs in place. PSYCH/MENTAL STATUS: Awake, alert, and oriented x3. Hospital Course 86-year-old female with recent influenza diagnosis who presented with worsening upper respiratory symptoms. Basic labs and CXR were ordered in the ED revealing normal white count but notable left shift, hyponatremia, and CXR notable for a possible consolidation in the left lung base. In the outpatient setting she was being treated for pneumonia which was diagnosed 08/07, with 3 doses of Tamiflu completed. She was noted to have hypoxia upon ED arrival documented at 83% with tachycardia. She was also noted to have tachypnea. She was admitted for further workup and evaluation. She met inpatient criteria based on hypoxia on admission , evidence of pneumonia on CXR, and hyponatremia. She was started on Rocephin and Azithromycin. Overnight after being admitted her oxygen saturation dropped to around 63%, although no documented. She was transferred to the ICU and placed on BiPAP. She was started on Vancomycin. Later she was weaned to nasal cannula. Repeat CXR on 08/11 showed improvement of bilateral infiltrates with some scattered bilateral atelectasis. She was recommended for rehab by PT. She was discharged to a SNF on 08/13. Pt Condition on Discharge: Fair Discharge Disposition: Discharge to SNF Discharge Instructions DIET: Follow Instructions for: As Tolerated, No Restrictions Speech Therapy-Diet Recommends: Regular Activities you can perform: Regular-No Restrictions Follow up Referrals: PCP Follow-up - 1 Week New Medications: Levofloxacin (Levofloxacin) 500 Mg Tablet 500 MG PO DAILY for Infection, #3 TAB 0 Refills Pantoprazole (Pantoprazole) 40 Mg Tab 40 MG PO DAILY for Reflux for 3 Days, #3 TAB 0 Refills Prednisone (Prednisone) 50 Mg Tab 50 MG PO DAILY for 3 Days, #3 TAB 0 Refills Albuterol Neb (Albuterol Neb) 2.5 Mg/3 Ml Neb 2.5 MG NEB Q4HR NEB PRN for SOB/WHEEZING, #7 NEBULE Hydrochlorothiazide (Hydrochlorothiazide) 12.5 Mg Cap 12.5 MG PO DAILY, #30 CAP Sennosides-Docusate Sodium (Senna Plus 8.6-50 mg) 8.6 Mg-50 Mg Tab 1 TAB PO BID, #60 TAB Continued Medications: Cholecalciferol (Vitamin D3) 1,000 Unit Tab 1000 UNITS PO DAILY for Nutritional Supplement, #1 BOTTLE 0 Refills Cyanocobalamin (Vitamin B-12) 1,000 Mcg Tab 1000 MCG PO DAILY for Nutritional Supplement, #1 BOTTLE 0 Refills Dorzolamide Opth Drops (Dorzolamide Opth Drops) 2% Soln 1 DROP RIGHT EYE BID for Glaucoma, #1 BOTTLE 0 Refills Latanoprost Opth Drops (Latanoprost Opth Drops) 0.005% Drops 1 DROP EACH EYE HS for Glaucoma, #2.5 ML 0 Refills Refrigerate until opened. Losartan-Hydrochlorothiazide (Losartan-Hydrochlorothiazide) 50-12.5 Mg Tab 1 TAB PO DAILY for Blood Pressure Management, #30 TAB 0 Refills Mirtazapine (Mirtazapine) 30 Mg Tab 30 MG PO HS for Depression Control, #30 TAB 0 Refills Montelukast (Singulair) 10 Mg Tab 10 MG PO HS, #30 TAB 0 Refills Multiple Vitamins W/ Minerals (Ocuvite Adult 50+) 1 Cap 1 CAP PO DAILY for Nutritional Supplement, CAP 0 Refills Pravastatin (Pravastatin) 20 Mg Tab 20 MG PO HS for Cholesterol Management, #30 TAB 0 Refills Rivaroxaban (Xarelto) 20 Mg Tab 20 MG PO DAILY for Blood Clot Prevention, TAB 0 Refills Timolol Opth Drops (Timoptic Opth Drops) 0.5 % Soln 1 DROP EACH EYE BID for Glaucoma, #1 BOTTLE 0 Refills Zolpidem (Ambien) 10 Mg Tab 5 MG PO HS PRN for INSOMNIA, TAB 0 Refills Brit Rios MD R1 Aug 13, 2017 15:38
[2017-08-14] MEDS ORDERED: PHARMACY ORDERED LAB ONE (08:45)
== END 2017-08-13 15:08 | DRG 194 ==
LOC: NEPE 14:37 → NEDA 17:14 → INTOOBSV 17:14 → OBSVTOIN 18:45 → N07B 19:40 → HIMN 08-09 06:30 → N04B 08-10 23:46
PROVIDERS: ADMIT Family Medicine; ATTEND Family Medicine
DX: J11.08 Influenza due to unidentified influenza virus with specified pneumonia (principal); J98.11 Atelectasis; E87.2 Acidosis; I48.2 Chronic atrial fibrillation; G30.9 Alzheimer's disease, unspecified; F02.80 Dementia in other diseases classified elsewhere, unspecified severity, without behavioral disturbance, psychotic disturbance, mood disturbance, and anxiety; E87.1 Hypo-osmolality and hyponatremia; J18.1 Lobar pneumonia, unspecified organism; I10 Essential (primary) hypertension; R09.02 Hypoxemia; J45.909 Unspecified asthma, uncomplicated; E78.5 Hyperlipidemia, unspecified; F32.9 Major depressive disorder, single episode, unspecified; G47.33 Obstructive sleep apnea (adult) (pediatric); H35.30 Unspecified macular degeneration; H40.9 Unspecified glaucoma; I69.349 Monoplegia of lower limb following cerebral infarction affecting unspecified side; M16.10 Unilateral primary osteoarthritis, unspecified hip; R32 Unspecified urinary incontinence; Z79.01 Long term (current) use of anticoagulants; Z79.899 Other long term (current) drug therapy
CPT/HCPCS: 36600; 71010; 71020; 80048; 80053; 80076; 80202; 81001; 82565; 82805; 83605; 83880; 84100; 84295; 85025; 85610; 85730; 87040; 87070; 87205; 87449; 87641; 87804; 93306; 94150; 94620; 94640; 94664; 96365; C9113; J0456; J0696; J2930; J3370; J7030; J7040; J7050; J7608; J7613

== ENCOUNTER 2017-09-25 08:08 | Inpatient (IN) | payer MEDICARE, BC ==
[~2017-09-25] VITALS: Ht 170.2 cm; Wt 83.2 kg
[~2017-09-25 08:08] MED LIST changes: +ALBU0.08 NEB; +HYDR12.57 PO; +LEVO500T8 PO; +PANT40TA3 PO; +PRED50 PO; +SENN1TAB PO
[2017-09-25 08:13] VITALS: BP 106/57; PULSE 113; RESP 16; TEMP 98; O2SAT 95
--- NOTE | 2017-09-25 08:28 | PD ---
HPI Chief Complaint: General Weakness Time Seen by Provider: 08:24 Travel History International Travel<30 days: No Contact w/Intl Traveler<30days: No Traveled to known affect area: No History of Present Illness HPI 86-year-old female patient with history of C. difficile diarrhea several weeks ago after antibiotic use, presents to the ER today because she states that she thinks she injured her right wrist 2 days ago while sleeping, states that she just woke up with right wrist pain. She also states that she has been feeling weak, not feeling well, having some episodes of diarrhea over the last few days although she has not restarted on any antibiotics. She denies any nausea, vomiting, abdominal pains, fevers, or any other issues. Modifying Factors: None Associated Signs & Symptoms: Diarrhea, weakness, right wrist pain Risk Factors: Elderly, recent history of C. difficile diarrhea, ICU admission for pneumonia and influenza PFSH Past Medical History Hx Anticoagulant Therapy: Yes (XARELTO) AAA: Yes Alzheimer's Disease: Yes ("EARLY") Arthritis: Yes Asthma: Yes Atrial Fibrillation: Yes Heart Rhythm Problems: Yes (A-fib) Cancer: No Cardiovascular Problems: Yes (A FIB) High Cholesterol: Yes Chemotherapy: No Chest Pain: No Congestive Heart Failure: No COPD: No Cerebrovascular Accident: Yes (X3) Diabetes: No Diminished Hearing: No Endocrine: No Glaucoma: Yes Genitourinary: No Hepatitis: No Hiatal Hernia: No Hypertension: Yes Immune Disorder: No Inguinal Hernia: Yes Musculoskeletal: Yes (ARTHRITIS HIP AND HANDS) Neurologic: No Psychiatric: No Reproductive: No Respiratory: Yes (SOB AT TIMES, ALLERGIES, BRONCHITIS ) Immunizations Current: Yes Pneumonia: Yes Radiation Therapy: No Sleep Apnea: Yes (cpap) Thyroid Disease: No PNEUMOCCOCAL Vaccine (Year): 2009 Menopausal: Yes : 3 Para: 3 Past Surgical History Abdominal Surgery: Yes (ing hernia appy ) AICD: No Appendectomy: Yes Cardiac Surgery: No Ear Surgery: No Endocrine Surgery: No Eye Surgery: Yes (cataract ) Genitourinary Surgery: Yes (bladder prolapse) Gynecologic Surgery: Yes (hysterectomy breat biopsy) Hysterectomy: Yes Joint Replacement: No Neurologic Surgery: No Oral Surgery: No Pacemaker: No Thoracic Surgery: Yes (2 BREAST BIOPSIES) Other Surgery: Yes (2 BREAST BIOPSIES: EACH BREAST "NO MALIGNANCIES") Social History Alcohol Use: No Tobacco Use: No Substance Use: No Allergies-Medications (Allergen,Severity, Reaction): Coded Allergies: mold (Unverified Allergy, Severe, Shortness of Breath, 09/25/17) Reported Meds & Prescriptions Reported Meds & Active Scripts Active Prednisone 50 Mg Tab 50 Mg PO DAILY 3 Days Losartan-Hydrochlorothiazide 50-12.5 Mg Tab 1 Tab PO DAILY Reported Diphenoxylate-Atropine 2.5-0.025 Mg Tab 1 Tab PO Q6H PRN Dorzolamide Opth Drops (Dorzolamide HCl) 2% Soln 1 Drop RIGHT EYE BID Latanoprost Opth Drops (Latanoprost) 0.005% Drops 1 Drop EACH EYE HS Refrigerate until opened. Pravastatin 20 Mg Tab 20 Mg PO HS Ocuvite Adult 50+ (Multiple Vitamins W/ Minerals) 1 Cap 1 Cap PO DAILY Xarelto (Rivaroxaban) 20 Mg Tab 20 Mg PO DAILY Timoptic Opth Drops (Timolol Opth Drops) 0.5 % Soln 1 Drop EACH EYE BID Singulair (Montelukast Sodium) 10 Mg Tab 10 Mg PO HS Mirtazapine 30 Mg Tab 30 Mg PO HS Review of Systems Except as stated in HPI: all other systems reviewed are Neg Physical Exam Narrative GENERAL: Well-developed elderly white female patient currently in mild distress. Awake and oriented 3. SKIN: Focused skin assessment warm/dry. HEAD: Atraumatic. Normocephalic. EYES: Pupils equal and round. No scleral icterus. No injection or drainage. ENT: No nasal bleeding or discharge. Mucous membranes pink and moist. NECK: Trachea midline. No JVD. Supple. CARDIOVASCULAR: Regular rate and rhythm. No murmur appreciated. RESPIRATORY: No accessory muscle use. Clear to auscultation. Breath sounds equal bilaterally. GASTROINTESTINAL: Abdomen soft, non-tender, nondistended. Hepatic and splenic margins not palpable. Benign. MUSCULOSKELETAL: No obvious deformities. No clubbing. No cyanosis. No edema. EXTREMITIES: No clubbing, cyanosis, or edema. No joint tenderness, effusion, or edema noted. There is notable edema and tenderness on palpation of the right wrist, decreased range of motion secondary to pain. NEUROLOGICAL: Awake and alert. No obvious cranial nerve deficits. Motor grossly within normal limits. Normal speech. PSYCHIATRIC: Appropriate mood and affect; insight and judgment normal. Data Data Last Documented VS Vital Signs Date Time Temp Pulse Resp B/P (MAP) Pulse Ox O2 Delivery O2 Flow Rate FiO2 09/25/17 08:13 98.0 113 16 106/57 (73) 95 Orders Orders Electrocardiogram (09/25/17 08:24) Complete Blood Count With Diff (09/25/17 08:24) Comprehensive Metabolic Panel (09/25/17 08:24) Lipase (09/25/17 08:24) Urinalysis - C+S If Indicated (09/25/17 08:24) Wrist, Complete (Ule4atx) (09/25/17 08:24) Sodium Chlorid 0.9% 500 Ml Inj (Ns 500 M (09/25/17 08:45) Blood Culture (09/25/17 10:18) Chest, Single Ap (09/25/17 ) C Diff Toxin Pcr (09/25/17 10:22) Lactic Acid Sepsis Protocol (09/25/17 10:22) Admit Order (Ed Use Only) (09/25/17 10:35) Metronidazole 500 Mg Inj (Flagyl 500 Mg (09/25/17 10:45) Labs Laboratory Tests Test 09/25/17 08:45 09/25/17 10:00 09/25/17 10:30 White Blood Count 15.5 TH/MM3 Red Blood Count 4.01 MIL/MM3 Hemoglobin 11.8 GM/DL Hematocrit 35.9 % Mean Corpuscular Volume 89.6 FL Mean Corpuscular Hemoglobin 29.3 PG Mean Corpuscular Hemoglobin Concent 32.7 % Red Cell Distribution Width 13.9 % Platelet Count 529 TH/MM3 Mean Platelet Volume 5.9 FL Neutrophils (%) (Auto) 89.0 % Lymphocytes (%) (Auto) 3.8 % Monocytes (%) (Auto) 6.7 % Eosinophils (%) (Auto) 0.2 % Basophils (%) (Auto) 0.3 % Neutrophils # (Auto) 13.9 TH/MM3 Lymphocytes # (Auto) 0.6 TH/MM3 Monocytes # (Auto) 1.0 TH/MM3 Eosinophils # (Auto) 0.0 TH/MM3 Basophils # (Auto) 0.0 TH/MM3 CBC Comment DIFF FINAL Differential Comment Blood Urea Nitrogen 18 MG/DL Creatinine 0.72 MG/DL Random Glucose 118 MG/DL Total Protein 6.0 GM/DL Albumin 2.7 GM/DL Calcium Level 7.8 MG/DL Alkaline Phosphatase 95 U/L Aspartate Amino Transf (AST/SGOT) 30 U/L Alanine Aminotransferase (ALT/SGPT) 29 U/L Total Bilirubin 0.6 MG/DL Sodium Level 128 MEQ/L Potassium Level 3.4 MEQ/L Chloride Level 93 MEQ/L Carbon Dioxide Level 25.2 MEQ/L Anion Gap 10 MEQ/L Estimat Glomerular Filtration Rate 77 ML/MIN Lipase 80 U/L Urine Collection Type CLEAN CATCH Urine Color YARITZA Urine Turbidity SLIGHT Urine pH 6.0 Urine Specific [place] 1.013 Urine Protein NEG mg/dL Urine Glucose (UA) NEG mg/dL Urine Ketones TRACE mg/dL Urine Occult Blood NEG Urine Nitrite NEG Urine Bilirubin NEG Urine Leukocyte Esterase NEG Urine Squamous Epithelial Cells > 8 /hpf Urine Amorphous Sediment MOD Microscopic Urinalysis Comment CULT NOT INDICATED Urine Collection Time 1000 MDM Medical Decision Making Medical Screen Exam Complete: Yes Emergency Medical Condition: Yes Medical Record Reviewed: Yes Interpretation(s) EKG shows sinus tachycardia rate of 107 bpm with no signs of acute ST-T changes. Laboratory Tests Test 09/25/17 08:45 09/25/17 10:00 09/25/17 10:30 White Blood Count 15.5 TH/MM3 (4.0-11.0) Platelet Count 529 TH/MM3 (150-450) Mean Platelet Volume 5.9 FL (7.0-11.0) Neutrophils (%) (Auto) 89.0 % (16.0-70.0) Lymphocytes (%) (Auto) 3.8 % (9.0-44.0) Neutrophils # (Auto) 13.9 TH/MM3 (1.8-7.7) Lymphocytes # (Auto) 0.6 TH/MM3 (1.0-4.8) Monocytes # (Auto) 1.0 TH/MM3 (0-0.9) Random Glucose 118 MG/DL (74-106) Total Protein 6.0 GM/DL (6.4-8.2) Albumin 2.7 GM/DL (3.4-5.0) Calcium Level 7.8 MG/DL (8.5-10.1) Sodium Level 128 MEQ/L (136-145) Potassium Level 3.4 MEQ/L (3.5-5.1) Chloride Level 93 MEQ/L (98-107) Estimat Glomerular Filtration Rate 77 ML/MIN (>89) Urine Color YARITZA (YELLW/STRAW) Urine Ketones TRACE mg/dL (NEG) Urine Squamous Epithelial Cells > 8 /hpf (0-5) Last 24 hours Impressions Wrist X-Ray 09/25/17 0824 Signed Impressions: Service Date/Time: Monday, September 25, 2017 08:37 - CONCLUSION: 1. No acute fracture or dislocation. 2. Soft tissue swelling involving the right wrist. 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 Jorge Girard MD Differential Diagnosis Wrist arthritis versus fractures, gastroenteritis versus C. difficile diarrhea, rule out dehydration versus metabolic issues Narrative Course X-ray of the wrist did not show any signs of acute fractures. She does have some underlying arthritis which may be causing her inflammation and pain. She has significant leukocytosis concerning for underlying sepsis. She is tachycardic. IV fluids were given in the ER. Her blood pressure is on the low side as well. She is empirically started on Flagyl considering her diarrhea and C. difficile history. At this point, my plan would be to admit her as an observation for further evaluation of leukocytosis was suspicion of sepsis. Case is discussed with Dr. Raygoza for admission. Sepsis Criteria SIRS Criteria (2 or more): Heart rate over 90, WBC > 93426, < 4000 or > 10% bands Severe Sepsis (+one): Hypotension Diagnosis Primary Impression: Sepsis Additional Impressions: Diarrhea Hyponatremia Admitting Information Admitting Physician Requests: Admit Yordan Barker MD Sep 25, 2017 08:28
[2017-09-25] MEDS ORDERED: DIPH2.5T14 PO (08:32)
[2017-09-25] MEDS ORDERED: SODIUM CHLORID 0.9% 500 ML INJ 500 ML IV ONE (08:45)
[2017-09-25 08:55] LABS: AUTOMATED NEUTROPHIL # 13.9 TH/MM3 (1.8-7.7); BASOPHIL % 0.3 % (0.0-2.0); EOSINOPHIL % 0.2 % (0.0-4.0); HEMATOCRIT 35.9 % (35.0-46.0); LYMPH % 3.8 % (9.0-44.0); LYMPHOCYTE # 0.6 TH/MM3 (1.0-4.8); MEAN CELL VOLUME 89.6 FL (80.0-100.0); MEAN CORPUSCULAR HEMOGLOBIN 29.3 PG (27.0-34.0); MEAN CORPUSCULAR HGB CONC 32.7 % (32.0-36.0); MONO % 6.7 % (0.0-8.0); PLATELET COUNT 529 TH/MM3 (150-450); RED BLOOD COUNT 4.01 MIL/MM3 (4.00-5.30); RED CELL DISTRIBUTION WIDTH 13.9 % (11.6-17.2); WHITE BLOOD COUNT 15.5 TH/MM3 (4.0-11.0)
[2017-09-25 08:58] LABS: HEMO FLAGS DIFF FINAL
--- NOTE | 2017-09-25 08:58 | RADRPT ---
EXAM DATE/TIME: 09/25/2017 08:37 [facility] COMPARISON: No previous studies available for comparison. INDICATIONS : Right wrist pain, increasing pain level, no known injury MEDICAL HISTORY : Carcinoma, breast. SURGICAL HISTORY : Mastectomy, bilateral. ENCOUNTER: Initial ACUITY: 2 days PAIN SCORE: 8/10 LOCATION: Right wrist FINDINGS: Osteoarthritis is noted involving the first carpometacarpal joint, first interphalangeal joint, proxi mal interphalangeal joints, and second and third metacarpophalangeal joints. No acute fracture or dis location is noted. Soft tissue swelling surrounding the wrist is noted. CONCLUSION: 1. No acute fracture or dislocation. 2. Soft tissue swelling involving the right wrist. 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 Jorge Girard MD on September 25, 2017 at 8:54 Board Certified Radiologist. This report was verified electronically.
[2017-09-25 09:01] LABS: CHLORIDE 93 MEQ/L (98-107); POTASSIUM 3.4 MEQ/L (3.5-5.1); SODIUM (NA) 128 MEQ/L (136-145)
[2017-09-25 09:05] LABS: ANION GAP 10 MEQ/L (5-15); BICARBONATE 25.2 MEQ/L (21.0-32.0); BLOOD UREA NITROGEN 18 MG/DL (7-18)
[2017-09-25 09:08] LABS: ALT (GPT) 29 U/L (10-53); AST (GOT) 30 U/L (15-37); GLOMERULAR FILTRATION RATE 77 ML/MIN (>89)
[2017-09-25 09:09] LABS: TOTAL BILIRUBIN ADULT 0.6 MG/DL (0.2-1.0)
[2017-09-25 09:11] LABS: ALKALINE PHOSPHATASE 95 U/L (45-117)
[2017-09-25 10:15] LABS: BLOOD, URINE NEG (NEG); GLUCOSE,URINE NEG (NEG); KETONE, URINE TRACE mg/dL (NEG); NITRITE,URINE NEG (NEG)
[2017-09-25 10:16] LABS: METHOD OF COLLECTION CLEAN CATCH; URINE COLOR AMBER (YELLW/STRAW)
[2017-09-25 10:19] LABS: COMMENT (UR) CULT NOT INDICATED; COMMENT2 (UR) MUCOUS PRESENT; CULTURE IF INDICATED CULT NOT INDICATED; SQUAMOUS EPITHELIAL CELL URINE > 8 /hpf (0-5)
[2017-09-25] MEDS ORDERED: SENNOSIDES 8.6 MG TAB PO PRN (10:45)
[2017-09-25] MEDS ORDERED: NALOXONE HCL 0.4 MG/ML AMP IV PUSH PRN (10:45)
[2017-09-25] MEDS ORDERED: BISACODYL 10 MG SUPP RECTAL PRN (10:45)
[2017-09-25] MEDS ORDERED: SODIUM CHLORIDE 0.9% FLUSH 10 ML FLUSH IV FLUSH PRN (10:45)
[2017-09-25] MEDS ORDERED: MAGNESIUM HYDROXIDE SUSP 30 ML CUP PO PRN (10:45)
[2017-09-25] MEDS ORDERED: metroNIDAZOLE 500 MG INJ 100 ML IV ONE (10:45)
[2017-09-25] MEDS ORDERED: ONDANSETRON HCL 4 MG/2 ML VIAL IVP PRN (10:45)
[2017-09-25 10:54] VITALS: BP 118/67; PULSE 105; RESP 20; O2SAT 94
--- NOTE | 2017-09-25 11:01 | HHI.HP ---
HPI Service [facility] Primary Care Physician Terry Hernandez MD Admission Diagnosis Sepsis/diarrhea Diagnoses: Chief Complaint: Right wrist pain and diarrhea Travel History International Travel<30 Days: No Contact w/Intl Traveler <30 Da: No Traveled to Known Affected Are: No Sepsis Criteria SIRS Criteria (2 or more): Heart rate over 90, WBC > 42076, < 4000 or > 10% bands History of Present Illness Written by Deepika Terry, acting as scribe for Dr. Raygoza on 09/25/17 at 10:57. Ms. Hammond is an 86-year-old female patient with a known medical history of atrial fibrillation on Xarelto, dyslipidemia, hypertension, and recent hospitalization for pneumonia who presented to the ED with complaints of right wrist pain and generalized weakness. Patient states that she had been treated with IV antibiotics while hospitalized and subsequently complaints of diarrhea that started 3 days ago and saw her PCP who gave her Lomotil which temporarily has helped the diarrhea. Does admit to associated weakness. Denies any recent fever, chills, headache, abdominal pain, n/d or dysuria. Patient also complaints of right wrist pain and swelling, she states she went to bed fine and woke up with erythema, swelling and pain to her right wrist due to unknown cause states she possibly hit it accidentally on her head board. Review of Systems Constitutional: DENIES: Fever, Chills Eyes: DENIES: Blurred vision, Diplopia Ears, nose, mouth, throat: DENIES: Throat pain Respiratory: DENIES: Cough, Sputum production, Shortness of breath Cardiovascular: DENIES: Chest pain, Palpitations Gastrointestinal: COMPLAINS OF: Diarrhea, DENIES: Black stools, Bloody stools, Constipation, Nausea, Vomiting Musculoskeletal: COMPLAINS OF: Joint pain (right wrist) Hematologic/lymphatic: DENIES: Bruising Except as stated in HPI: all other systems reviewed are Neg Past Family Social History Past Medical History Afib Strokes x 3 Glaucoma Macular degeneration MANNY - uses CPAP HL HTN Asthma Allergies - multiple, takes two allergy shots per week Past Surgical History Left inguinal hernia repair Cataract surgery 2 Repair bladder prolapse Hysterectomy Appendectomy Multiple breast biopsies bilaterally - no history of breast cancer Reported Medications Active Prednisone 50 Mg Tab 50 Mg PO DAILY 3 Days Losartan-Hydrochlorothiazide 50-12.5 Mg Tab 1 Tab PO DAILY Reported Diphenoxylate-Atropine 2.5-0.025 Mg Tab 1 Tab PO Q6H PRN Dorzolamide Opth Drops (Dorzolamide HCl) 2% Soln 1 Drop RIGHT EYE BID Latanoprost Opth Drops (Latanoprost) 0.005% Drops 1 Drop EACH EYE HS Refrigerate until opened. Pravastatin 20 Mg Tab 20 Mg PO HS Ocuvite Adult 50+ (Multiple Vitamins W/ Minerals) 1 Cap 1 Cap PO DAILY Xarelto (Rivaroxaban) 20 Mg Tab 20 Mg PO DAILY Timoptic Opth Drops (Timolol Opth Drops) 0.5 % Soln 1 Drop EACH EYE BID Singulair (Montelukast Sodium) 10 Mg Tab 10 Mg PO HS Mirtazapine 30 Mg Tab 30 Mg PO HS Allergies: Coded Allergies: mold (Unverified Allergy, Severe, Shortness of Breath, 09/25/17) Active Ordered Medications Current Medications Medications (Trade) Dose Ordered Sig/Young Route Start Time Stop Time Status Last Admin Metronidazole 100 ml @ 100 mls/hr ONCE ONCE IV 09/25/17 10:45 09/25/17 11:44 09/25/17 10:50 (NS Flush) 2 ml UNSCH PRN IV FLUSH 09/25/17 10:45 UNV (NS Flush) 2 ml BID IV FLUSH 09/25/17 21:00 UNV (Tylenol) 650 mg Q4H PRN PO 09/25/17 10:45 UNV (Zofran Inj) 4 mg Q6H PRN IVP 09/25/17 10:45 UNV (Narcan Inj) 0.4 mg UNSCH PRN IV PUSH 09/25/17 10:45 UNV (Katia-Colace) 1 tab BID PO 09/25/17 21:00 UNV (Milk Of Magnesia Liq) 30 ml Q12H PRN PO 09/25/17 10:45 UNV (Senokot) 17.2 mg Q12H PRN PO 09/25/17 10:45 UNV (Dulcolax Supp) 10 mg DAILY PRN RECTAL 09/25/17 10:45 UNV Family History Father with cardiovascular disease. Social History Denies any current tobacco use. Denies any alcohol use. Denies any illicit drug use. Physical Exam Vital Signs Vital Signs Date Time Temp Pulse Resp B/P (MAP) Pulse Ox O2 Delivery O2 Flow Rate FiO2 09/25/17 10:54 105 20 118/67 (84) 94 09/25/17 08:13 98.0 113 16 106/57 (73) 95 Physical Exam GENERAL: This is a well-nourished, well-developed patient, in no apparent distress. SKIN: No rashes, ecchymoses or lesions. Cool and dry. HEAD: Atraumatic. Normocephalic. No temporal or scalp tenderness. EYES: Pupils equal round and reactive. Extraocular motions intact. No scleral icterus. No injection or drainage. ENT: Nose without bleeding, purulent drainage or septal hematoma. Throat without erythema, tonsillar hypertrophy or exudate. Uvula midline. Airway patent. NECK: Trachea midline. No JVD or lymphadenopathy. Supple, nontender, no meningeal signs. CARDIOVASCULAR: Regular rate and rhythm without murmurs, gallops, or rubs. RESPIRATORY: Clear to auscultation. Breath sounds equal bilaterally. No wheezes , rales, or rhonchi. GASTROINTESTINAL: Abdomen soft, non-tender, nondistended. No hepato-splenomegaly , or palpable masses. No guarding. MUSCULOSKELETAL: Extremities without clubbing, cyanosis, or edema. No joint tenderness, effusion, or edema noted. No calf tenderness. Negative Homans sign bilaterally. NEUROLOGICAL: Awake and alert. Cranial nerves II through XII intact. Motor and sensory grossly within normal limits. Five out of 5 muscle strength in all muscle groups. Normal speech. Laboratory Laboratory Tests Test 09/25/17 08:45 09/25/17 10:00 09/25/17 10:30 White Blood Count 15.5 Red Blood Count 4.01 Hemoglobin 11.8 Hematocrit 35.9 Mean Corpuscular Volume 89.6 Mean Corpuscular Hemoglobin 29.3 Mean Corpuscular Hemoglobin Concent 32.7 Red Cell Distribution Width 13.9 Platelet Count 529 Mean Platelet Volume 5.9 Neutrophils (%) (Auto) 89.0 Lymphocytes (%) (Auto) 3.8 Monocytes (%) (Auto) 6.7 Eosinophils (%) (Auto) 0.2 Basophils (%) (Auto) 0.3 Neutrophils # (Auto) 13.9 Lymphocytes # (Auto) 0.6 Monocytes # (Auto) 1.0 Eosinophils # (Auto) 0.0 Basophils # (Auto) 0.0 CBC Comment DIFF FINAL Differential Comment Blood Urea Nitrogen 18 Creatinine 0.72 Random Glucose 118 Total Protein 6.0 Albumin 2.7 Calcium Level 7.8 Alkaline Phosphatase 95 Aspartate Amino Transf (AST/SGOT) 30 Alanine Aminotransferase (ALT/SGPT) 29 Total Bilirubin 0.6 Sodium Level 128 Potassium Level 3.4 Chloride Level 93 Carbon Dioxide Level 25.2 Anion Gap 10 Estimat Glomerular Filtration Rate 77 Lipase 80 Urine Collection Type CLEAN CATCH Urine Color YARITZA Urine Turbidity SLIGHT Urine pH 6.0 Urine Specific Elizabeth 1.013 Urine Protein NEG Urine Glucose (UA) NEG Urine Ketones TRACE Urine Occult Blood NEG Urine Nitrite NEG Urine Bilirubin NEG Urine Leukocyte Esterase NEG Urine Squamous Epithelial Cells > 8 Urine Amorphous Sediment MOD Microscopic Urinalysis Comment CULT NOT INDICATED Urine Collection Time 1000 Date/Time Source Procedure Growth Status 09/25/17 10:30 Blood Peripheral Aerobic Blood Culture Pending Received 09/25/17 10:30 Blood Peripheral Anaerobic Blood Culture Pending Received Result Diagram: 09/25/17 0845 09/25/17 0845 Imaging Last Impressions Wrist X-Ray 09/25/17823 Signed Impressions: Service Date/Time: Monday, September 25, 2017 08:37 - CONCLUSION: 1. No acute fracture or dislocation. 2. Soft tissue swelling involving the right wrist. 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 Jorge Girard MD Septic Shock Reassessment Septic shock perfusion: reassessment completed Caprini VTE Risk Assessment Caprini VTE Risk Assessment: Mod/High Risk (score >= 2) Caprini Risk Assessment Model Point Value = 1 Point Value = 2 Point Value = 3 Point Value = 5 Age 41-60 Minor surgery BMI > 25 kg/m2 Swollen legs Varicose veins or History of unexplained or recurrent spontaneous Oral contraceptives or hormone replacement Sepsis (< 1 month) Serious lung disease, including pneumonia (< 1 month) Abnormal pulmonary function Acute myocardial infarction Congestive heart failure (< 1 month) History of inflammatory bowel disease Medical patient at bed rest Age 61-74 Arthroscopic surgery Major open surgery (> 45 min) Laparoscopic surgery (> 45 min) Malignancy Confined to bed (> 72 hours) Immobilizing plaster cast Central venous access Age >= 75 History of VTE Family history of VTE Factor V Leiden Prothrombin [id number] Lupus anticoagulant Anticardiolipin antibodies Elevated serum homocysteine Heparin-induced thrombocytopenia Other congenital or acquired thrombophilia Stroke (< 1 month) Elective arthroplasty Hip, pelvis, or leg fracture Acute spinal cord injury (< 1 month) Prophylaxis Regimen Total Risk Factor Score Risk Level Prophylaxis Regimen 0-1 Low Early ambulation 2 Moderate Order ONE of the following: *Sequential Compression Device (SCD) *Heparin 5000 units SQ BID 3-4 Higher Order ONE of the following medications: *Heparin 5000 units SQ TID *Enoxaparin/Lovenox 40 mg SQ daily (WT < 150 kg, CrCl > 30 mL/min) *Enoxaparin/Lovenox 30 mg SQ daily (WT < 150 kg, CrCl > 10-29 mL/min) *Enoxaparin/Lovenox 30 mg SQ BID (WT < 150 kg, CrCl > 30 mL/min) AND/OR *Sequential Compression Device (SCD) 5 or more Highest Order ONE of the following medications: *Heparin 5000 units SQ TID (Preferred with Epidurals) *Enoxaparin/Lovenox 40 mg SQ daily (WT < 150 kg, CrCl > 30 mL/min) *Enoxaparin/Lovenox 30 mg SQ daily (WT < 150 kg, CrCl > 10-29 mL/min) *Enoxaparin/Lovenox 30 mg SQ BID (WT < 150 kg, CrCl > 30 mL/min) AND *Sequential Compression Device (SCD) Assessment and Plan Problem List: (1) Sepsis ICD Code: A41.9 - Sepsis, unspecified organism Status: Acute Plan: Meet sepsis criteria suspect source rule out c diff (tachycardia, leukocytosis) WBC 15.5 on presentation. Continue to monitor CBC. UA sent and unremarkable. Has been having diarrhea x 3 days status post IV antibiotics during hospitalization for pneumonia. Was given Flagyl IV x 1 in ED. C diff stool ordered. Await growth. Will start on oral Vancomycin prophylactically. Follow growth. (2) Soft tissue swelling ICD Code: R22.9 - Localized swelling, mass and lump, unspecified Plan: Right wrist x-ray done in ED, reviewed showing no acute fracture or dislocation. Soft swelling and osteoarthritis of the right wrist. Supportive care. Control pain. Toradol available. (3) Electrolyte abnormality ICD Code: E87.8 - Other disorders of electrolyte and fluid balance, not elsewhere classified Plan: Na 128 on presentation. Continue IVF. K 3.4, supplementation ordered, recheck BMP in am. Follow. DVT prophylaxis: SCDs. Medical Decision Making Impression and Plan This note was transcribed by scribe [[email or web address]]. I, Dr. Kitty Raygoza personally performed the history, physical exam, and medical decision making at the time of note; and confirmed the accuracy of the information in the transcribed note. it is now signed Authenticated by Dr. Kitty Raygoza on 09/25/17 at 13:50. Deepika Terry Sep 25, 2017 11:01 Kitty Raygoza MD Sep 25, 2017 13:51
--- NOTE | 2017-09-25 11:17 | RADRPT ---
EXAM DATE/TIME: 09/25/2017 10:32 [facility] COMPARISON: CHEST SINGLE AP, August 09, 2017, 6:38. INDICATIONS : Weakness, fever, palpitations MEDICAL HISTORY : Carcinoma, breast. SURGICAL HISTORY : Mastectomy, bilateral. ENCOUNTER: Initial ACUITY: 1 day PAIN SCORE: 0/10 LOCATION: Bilateral chest FINDINGS: The heart is stable. Bibasilar atelectasis is noted. The pulmonary vascular pattern is normal. CONCLUSION: Bibasilar atelectasis. Jorge Girard MD on September 25, 2017 at 11:15 Board Certified Radiologist. This report was verified electronically.
[2017-09-25] MEDS ORDERED: POTASSIUM CHLORIDE 20 MEQ CONTROLLED RELEASE TAB PO ONE (11:30)
[2017-09-25 12:30] VITALS: BP 122/70; PULSE 110; RESP 20; TEMP 96.4; O2SAT 95
[2017-09-25] MEDS ORDERED: VANCOMYCIN 500 MG VIAL (FOR ORAL USE ONLY) PO SCH (13:00)
[2017-09-25] MEDS ORDERED: KETOROLAC TROMETHAMINE 30 MG/ML (IVP) VIAL IV PUSH PRN (14:15)
[2017-09-25] MEDS: VANCOMYCIN 500 MG VIAL (FOR ORAL USE ONLY) PO SCH ×3 (14:17→21:20)
[2017-09-25] MEDS: SODIUM CHLOR 0.9% 1000 ML INJ 1,000 ML IV SCH (14:21)
--- NOTE | 2017-09-25 15:47 | EKG ---
Date Performed: 09/25/2017 Time Performed: 08:31:36 PTAGE: 86 years EKG: SINUS TACHYCARDIA, POSSIBLE LEFT ATRIAL ENLARGEMENT, POSSIBLE RIGHT VENTRICULAR CONDUCTION DELAY, POSSIBLE ANTERIOR MYOCARDIAL INFARCTION, ABNORMAL ECG PREVIOUS TRACING : 02/18/2017 13.23 Compared to previous tracing, heart rate has increased. DOCTOR: Fausto Galvan Interpretating Date/Time 09/25/2017 15:46:58
[2017-09-25 15:52] VITALS: BP 139/70; PULSE 100; RESP 20; TEMP 96.7; O2SAT 97
[2017-09-25 20:00] VITALS: PULSE 102
[2017-09-25] MEDS ORDERED: diphenhydrAMINE HCL 25 MG CAP PO ONE (20:30)
[2017-09-25] MEDS ORDERED: DOCUSATE SODIUM 50 MG/SENNA 8.6 MG TAB PO SCH (21:00)
[2017-09-25] MEDS: SODIUM CHLORIDE 0.9% FLUSH 10 ML FLUSH IV FLUSH SCH (21:18)
[2017-09-25] MEDS: MONTELUKAST SODIUM 10 MG TAB PO SCH (21:19)
[2017-09-25] MEDS: PRAVASTATIN SOD 20 MG TAB PO SCH (21:19)
[2017-09-25] MEDS: TIMOLOL MALEATE 0.5% OPHT SOLN 5 ML BTL EACH EYE SCH (21:20)
[2017-09-25] MEDS: MIRTAZAPINE 15 MG TAB PO SCH (21:20)
[2017-09-25 21:31] VITALS: BP 138/79; PULSE 79; RESP 18; TEMP 98.9; O2SAT 97
[2017-09-26 00:06] VITALS: BP 116/72; PULSE 72; RESP 16; TEMP 96.6; O2SAT 95
[2017-09-26] MEDS: SODIUM CHLOR 0.9% 1000 ML INJ 1,000 ML IV SCH ×2 (02:03→12:36)
[2017-09-26 04:04] VITALS: BP 125/76; PULSE 71; RESP 16; TEMP 98.7; O2SAT 96
[2017-09-26 07:36] LABS: AUTOMATED NEUTROPHIL # 11.2 TH/MM3 (1.8-7.7); BASOPHIL % 0.1 % (0.0-2.0); EOSINOPHIL % 0.3 % (0.0-4.0); HEMATOCRIT 33.6 % (35.0-46.0); LYMPHOCYTE # 0.7 TH/MM3 (1.0-4.8); MEAN CELL VOLUME 89.8 FL (80.0-100.0); MEAN CORPUSCULAR HEMOGLOBIN 28.9 PG (27.0-34.0); MEAN CORPUSCULAR HGB CONC 32.2 % (32.0-36.0); MONO % 11.4 % (0.0-8.0); NEUT % 83.2 % (16.0-70.0); PLATELET COUNT 459 TH/MM3 (150-450); POTASSIUM 3.9 MEQ/L (3.5-5.1); RED BLOOD COUNT 3.74 MIL/MM3 (4.00-5.30); RED CELL DISTRIBUTION WIDTH 14.2 % (11.6-17.2); WHITE BLOOD COUNT 13.4 TH/MM3 (4.0-11.0)
[2017-09-26 07:40] LABS: HEMO FLAGS AUTO DIFF
[2017-09-26 08:00] VITALS: BP 151/86; PULSE 131; RESP 18; TEMP 98.8; O2SAT 98
[2017-09-26 08:26] LABS: BANDS 7 % (0-6); NEUTROPHIL # MANUAL DIFF 11.8 TH/MM3 (1.8-7.7); PLATELET ESTIMATE SMEAR HIGH (NORMAL); PLATELET MORPHOLOGY NORMAL (NORMAL); POLYS (SEG NEUTROPHILS) 81 % (16-70); SCAN/DIFF FINAL DIFF MANUAL; TOXIC GRANULATION 1+ (NORMAL); WBC DIFF SAMPLE 100
[2017-09-26 08:35] LABS: BICARBONATE 25.4 MEQ/L (21.0-32.0)
[2017-09-26 08:53] LABS: CALCIUM-PROTEIN CORRECTED 8.6 MG/DL (8.5-10.1)
--- NOTE | 2017-09-26 08:55 | HHI.PR ---
Subjective Remarks Patient seen this morning in follow-up for sepsis with diarrhea. This morning she reports her doctor told her she had C. difficile and was prescribed antibiotic but she did not take it and said she came to the emergency room. Tolerating vancomycin well. Complaining of some myalgias today and has requested Tylenol Sodium improved leukocytosis improved Objective Vitals Vital Signs Date Time Temp Pulse Resp B/P (MAP) Pulse Ox O2 Delivery O2 Flow Rate FiO2 09/26/17 04:04 98.7 71 16 125/76 (92) 96 09/26/17 00:06 96.6 72 16 116/72 (87) 95 09/25/17 21:31 98.9 79 18 138/79 (98) 97 09/25/17 20:00 102 09/25/17 15:52 96.7 100 20 139/70 (93) 97 09/25/17 12:30 96.4 110 20 122/70 (87) 95 09/25/17 12:15 09/25/17 10:54 105 20 118/67 (84) 94 I/O 09/25/17 09/25/17 09/25/17 09/26/17 09/26/17 09/26/17 07:00 15:00 23:00 07:00 15:00 23:00 Intake Total 240 ml 640 ml Output Total 500 ml Balance 240 ml 140 ml Intake Oral 240 ml IV Total 640 ml Output Urine Total 500 ml # Voids 3 2 # Bowel Movements 3 1 Result Diagram: 09/26/17 0640 09/26/17 0640 Objective Remarks GENERAL: This is a well-nourished, well-developed patient, complaining of myalgias and who appears her stated age CARDIOVASCULAR: Regular rate and rhythm without murmurs, gallops, or rubs. RESPIRATORY: Clear to auscultation. Breath sounds equal bilaterally. No wheezes , rales, or rhonchi. GASTROINTESTINAL: Abdomen soft, non-tender, nondistended. Normal active bowel sounds MUSCULOSKELETAL: Extremities without clubbing, cyanosis, or edema. NEURO: Alert & Oriented x4 to person, place, time, situation. Moves all ext x4 A/P Problem List: (1) Sepsis ICD Code: A41.9 - Sepsis, unspecified organism Status: Acute Plan: Likely due to C. difficile, continue vancomycin by mouth Follow progress Leukocytosis and heart rate improved Continue hydration (2) Soft tissue swelling ICD Code: R22.9 - Localized swelling, mass and lump, unspecified Plan: Improved, likely inflammatory (3) Electrolyte abnormality ICD Code: E87.8 - Other disorders of electrolyte and fluid balance, not elsewhere classified Plan: Hyponatremia resolved Correct hypocalcemia (4) Afib ICD Code: I48.91 - Unspecified atrial fibrillation Plan: Xarelto Rate controlled (5) Asthma in adult ICD Code: J45.909 - Asthma in adult Status: Chronic Plan: Continue Singulair Bronchodilators nebulizer as needed (6) HTN (hypertension) ICD Code: I10 - Essential (primary) hypertension Status: Chronic Plan: Controlled on current home regimen Kitty Raygoza MD Sep 26, 2017 08:55
[2017-09-26] MEDS ORDERED: RESP: ALBUTEROL 2.5 MG/IPRATROPIUM 0.5 MG NEB (PRN) NEB (09:00)
[2017-09-26] MEDS ORDERED: NON-FORMULARY DRUG (Losartan-Hydrochlorothiazide 1 TAB) PO SCH (09:00)
[2017-09-26] MEDS ORDERED: CALCIUM GLUCONATE 500 MG TAB PO ONE (09:00)
[2017-09-26] MEDS: SODIUM CHLORIDE 0.9% FLUSH 10 ML FLUSH IV FLUSH SCH ×2 (09:00→21:08)
[2017-09-26] MEDS ORDERED: CALCIUM CARBONATE 500 MG CHEWABLE TAB PO ONE (09:30)
[2017-09-26] MEDS: TIMOLOL MALEATE 0.5% OPHT SOLN 5 ML BTL EACH EYE SCH ×2 (09:31→21:08)
[2017-09-26] MEDS: ACETAMINOPHEN 325 MG TAB PO PRN ×2 (09:32→17:30)
[2017-09-26] MEDS: VANCOMYCIN 500 MG VIAL (FOR ORAL USE ONLY) PO SCH ×4 (09:34→21:13)
[2017-09-26] MEDS: HYDROCHLOROTHIAZIDE 12.5 MG CAP PO SCH (09:35)
[2017-09-26] MEDS: LOSARTAN 50 MG TAB PO SCH (09:36)
[2017-09-26] MEDS: RIVAROXABAN 20 MG TAB PO SCH (09:36)
[2017-09-26] MEDS ORDERED: INFLUENZA VIRUS VACCINE (QUADRIVALENT) 0.5 ML SYR IM ONE (10:00)
[2017-09-26] MEDS: DORZOLAMIDE 2% OPTH SOLN 200 DROP/10 ML BTLO RIGHT EYE SCH ×2 (10:23→21:13)
[2017-09-26 12:00] VITALS: BP 115/76; PULSE 102; RESP 18; TEMP 97.8; O2SAT 94
[2017-09-26 12:01] LABS: C. DIFF EPI 027 PRESUMPTIVE POSITIVE (NEGATIVE)
[2017-09-26 16:00] VITALS: BP 168/100; PULSE 101; RESP 18; TEMP 98; O2SAT 97
[2017-09-26] MEDS ORDERED: FUROSEMIDE 20 MG/2 ML VIAL IV PUSH ONE (18:00)
[2017-09-26 20:00] VITALS: BP 133/76; PULSE 78; RESP 17; TEMP 98.1; O2SAT 96
[2017-09-26] MEDS: MIRTAZAPINE 15 MG TAB PO SCH (21:09)
[2017-09-26] MEDS: MONTELUKAST SODIUM 10 MG TAB PO SCH (21:09)
[2017-09-26] MEDS: PRAVASTATIN SOD 20 MG TAB PO SCH (21:09)
[2017-09-27] VITALS: BP 128/72; PULSE 83; RESP 17; TEMP 98; O2SAT 95
[2017-09-27] MEDS: ACETAMINOPHEN 325 MG TAB PO PRN ×4 (05:54→20:13)
[2017-09-27 06:05] LABS: AUTOMATED NEUTROPHIL # 11.8 TH/MM3 (1.8-7.7); BASOPHIL # 0.1 TH/MM3 (0-0.2); BASOPHIL % 0.4 % (0.0-2.0); EOSINOPHIL # 0.2 TH/MM3 (0-0.4); EOSINOPHIL % 1.5 % (0.0-4.0); HEMATOCRIT 33.1 % (35.0-46.0); LYMPH % 4.6 % (9.0-44.0); LYMPHOCYTE # 0.7 TH/MM3 (1.0-4.8); MEAN CELL VOLUME 92.7 FL (80.0-100.0); MEAN CORPUSCULAR HEMOGLOBIN 30.4 PG (27.0-34.0); MEAN CORPUSCULAR HGB CONC 32.8 % (32.0-36.0); MONO % 11.7 % (0.0-8.0); NEUT % 81.8 % (16.0-70.0); PLATELET COUNT 387 TH/MM3 (150-450); RED BLOOD COUNT 3.57 MIL/MM3 (4.00-5.30); RED CELL DISTRIBUTION WIDTH 14.8 % (11.6-17.2); WHITE BLOOD COUNT 14.4 TH/MM3 (4.0-11.0)
[2017-09-27 06:15] LABS: HEMO FLAGS AUTO DIFF
[2017-09-27 06:18] LABS: POTASSIUM 3.9 MEQ/L (3.5-5.1)
[2017-09-27 07:01] LABS: PLATELET ESTIMATE SMEAR NORMAL (NORMAL); PLATELET MORPHOLOGY NORMAL (NORMAL); SCAN/DIFF AUTO DIFF CONFIRMED; TOXIC GRANULATION 1+ (NORMAL)
[2017-09-27 08:00] VITALS: BP 148/91; PULSE 102; RESP 20; TEMP 97.8; O2SAT 94
[2017-09-27] MEDS: RIVAROXABAN 20 MG TAB PO SCH (09:40)
[2017-09-27] MEDS: TIMOLOL MALEATE 0.5% OPHT SOLN 5 ML BTL EACH EYE SCH ×2 (09:40→20:12)
[2017-09-27] MEDS: DORZOLAMIDE 2% OPTH SOLN 200 DROP/10 ML BTLO RIGHT EYE SCH ×2 (09:40→20:12)
[2017-09-27] MEDS: VANCOMYCIN 500 MG VIAL (FOR ORAL USE ONLY) PO SCH ×4 (09:41→20:12)
[2017-09-27] MEDS: LOSARTAN 50 MG TAB PO SCH (09:42)
[2017-09-27] MEDS: SODIUM CHLORIDE 0.9% FLUSH 10 ML FLUSH IV FLUSH SCH ×2 (09:43→20:13)
[2017-09-27] MEDS: HYDROCHLOROTHIAZIDE 12.5 MG CAP PO SCH (09:44)
[2017-09-27] MEDS ORDERED: DIATRIZOATE MEGLUM/DIATRIZOATE SOD 9 ML CUP PO ONE (11:00)
--- NOTE | 2017-09-27 11:20 | HHI.PR ---
Subjective Remarks Patient seen in follow-up for C. difficile colitis. Belly appears more full today. She denies pain but says she's having shortness of breath because of the fullness in her belly. Bowel movements have become more solid. She notes no nausea and vomiting. Care plan discussed with patient, friend and with nursing team Objective Vitals Vital Signs Date Time Temp Pulse Resp B/P (MAP) Pulse Ox O2 Delivery O2 Flow Rate FiO2 09/27/17 08:00 97.8 102 20 148/91 (110) 94 09/27/17 00:00 98.0 83 17 128/72 (90) 95 09/26/17 20:00 98.1 78 17 133/76 (95) 96 09/26/17 16:00 98.0 101 18 168/100 (122) 97 09/26/17 12:00 97.8 102 18 115/76 (89) 94 I/O 09/26/17 09/26/17 09/26/17 09/27/17 09/27/17 09/27/17 07:00 15:00 23:00 07:00 15:00 23:00 Intake Total 640 ml 580 ml 583 ml Output Total 500 ml Balance 140 ml 580 ml 583 ml IV Total 640 ml 580 ml 583 ml Output Urine Total 500 ml # Voids 2 3 # Bowel Movements 1 5 3 Result Diagram: 09/27/1751409/27/17 0515 Objective Remarks GENERAL: This is a well-nourished, well-developed patient, complaining of myalgias and who appears her stated age CARDIOVASCULAR: Regular rate and rhythm without murmurs, gallops, or rubs. RESPIRATORY: Clear to auscultation. Breath sounds equal bilaterally. No wheezes , rales, or rhonchi. GASTROINTESTINAL: Abdomen soft, non-tender, moderately distended. Normal active bowel sounds MUSCULOSKELETAL: Extremities without clubbing, cyanosis, or edema. NEURO: Alert & Oriented x4 to person, place, time, situation. Moves all ext x4 A/P Problem List: (1) Sepsis ICD Code: A41.9 - Sepsis, unspecified organism Status: Acute Plan: Resolving Likely due to C. difficile, continue vancomycin by mouth Follow progress Leukocytosis and heart rate improved Repeat CT abdomen pelvis pending given no distention (2) Electrolyte abnormality ICD Code: E87.8 - Other disorders of electrolyte and fluid balance, not elsewhere classified Plan: Hyponatremia resolved Correct hypocalcemia (3) Afib ICD Code: I48.91 - Unspecified atrial fibrillation (4) Asthma in adult ICD Code: J45.909 - Asthma in adult Status: Chronic Plan: Continue Singulair Bronchodilators nebulizer as needed (5) HTN (hypertension) ICD Code: I10 - Essential (primary) hypertension Status: Chronic Plan: Controlled on current home regimen (6) Edema ICD Code: R60.9 - Edema, unspecified Plan: Status post Lasix with minimal urine output Follow-up repeat diuresis Discharge Planning likely home when stable Kitty Raygoza MD Sep 27, 2017 11:20
[2017-09-27] MEDS ORDERED: FUROSEMIDE 40 MG/4 ML VIAL IV PUSH ONE (11:30)
[2017-09-27 12:00] VITALS: BP 126/80; PULSE 103; RESP 20; TEMP 97.8; O2SAT 94
[2017-09-27] MEDS ORDERED: IOHEXOL 350 MG/ML 10 ML VIAL (for RAD DIAG) IVCONTRAST ONE (13:26)
--- NOTE | 2017-09-27 13:55 | RADRPT ---
EXAM DATE/TIME: 09/27/2017 13:01 [facility] COMPARISON: No previous studies available for comparison. INDICATIONS : Abdominal distention, getting worse each day. Diffuse abdominal pain. IV CONTRAST: 85 cc Omnipaque 350 (iohexol) IV ORAL CONTRAST: Prescribed oral contrast ingested. RADIATION DOSE: 17.57 CTDIvol (mGy) MEDICAL HISTORY : Cerebrovascular disease. Aneurysm, abdominal. Hypercholesterolemia.Anticoagulant therapy. Hypertensio n. SURGICAL HISTORY : Appendectomy. Inguinal hernia repair.Hysterectomy.Bladder prolapse. ENCOUNTER: Initial ACUITY: 4 - 6 days PAIN SCALE: 6/10 LOCATION: Bilateral pelvis abdomen TECHNIQUE: Volumetric scanning of the abdomen and pelvis was performed. Using automated exposure control and ad justment of the mA and/or kV according to patient size, radiation dose was kept as low as reasonably achievable to obtain optimal diagnostic quality images. DICOM format image data is available electro nically for review and comparison. FINDINGS: LOWER LUNGS: Tiny bilateral pleural effusions. Heart is normal in size. No discrete infiltrates. Mild passive atel ectasis. LIVER: Homogeneous density without lesion. There is no dilation of the biliary tree. No calcified gallston es. SPLEEN: Normal size without lesion. PANCREAS: Within normal limits. KIDNEYS: Normal in size and shape. There is no mass, stone or hydronephrosis. ADRENAL GLANDS: Within normal limits. VASCULAR: There is no aortic aneurysm. BOWEL/MESENTERY: The stomach, small bowel, and colon demonstrate no acute abnormality. There is no free intraperitone al air or fluid. ABDOMINAL WALL: Within normal limits. RETROPERITONEUM: There is no lymphadenopathy. BLADDER: No wall thickening or mass. REPRODUCTIVE: Within normal limits. INGUINAL: There is no lymphadenopathy or hernia. MUSCULOSKELETAL: Within normal limits for patient age. CONCLUSION: 1. No acute abnormality to explain the patient's pain. 2. Tiny bilateral pleural effusions with associated atelectasis. Vlad Thomas Jr., MD on September 27, 2017 at 13:46 Board Certified Radiologist. This report was verified electronically.
[2017-09-27] MEDS ORDERED: ALUMINUM/MAGNESIUM/SIMETH 30 ML CUP PO PRN (15:30)
[2017-09-27 16:00] VITALS: BP 137/87; PULSE 98; RESP 20; TEMP 97.7; O2SAT 95
[2017-09-27 20:00] VITALS: BP 144/90; PULSE 104; RESP 18; TEMP 96.3; O2SAT 98
[2017-09-27] MEDS: MIRTAZAPINE 15 MG TAB PO SCH (20:12)
[2017-09-27] MEDS: PRAVASTATIN SOD 20 MG TAB PO SCH (20:13)
[2017-09-27] MEDS: MONTELUKAST SODIUM 10 MG TAB PO SCH (20:13)
[2017-09-28] VITALS: BP 135/95; PULSE 101; RESP 16; TEMP 96.9; O2SAT 95
[2017-09-28] MEDS: HYDROCHLOROTHIAZIDE 12.5 MG CAP PO SCH (08:42)
[2017-09-28] MEDS: LOSARTAN 50 MG TAB PO SCH (08:42)
[2017-09-28] MEDS: RIVAROXABAN 20 MG TAB PO SCH (08:42)
[2017-09-28] MEDS: SODIUM CHLORIDE 0.9% FLUSH 10 ML FLUSH IV FLUSH SCH ×2 (08:43→21:50)
[2017-09-28] MEDS: VANCOMYCIN 500 MG VIAL (FOR ORAL USE ONLY) PO SCH ×4 (08:43→21:50)
[2017-09-28 09:22] VITALS: BP 158/93; PULSE 109; RESP 16; TEMP 97.4; O2SAT 95
[2017-09-28] MEDS: TIMOLOL MALEATE 0.5% OPHT SOLN 5 ML BTL EACH EYE SCH ×2 (10:50→21:47)
[2017-09-28] MEDS: DORZOLAMIDE 2% OPTH SOLN 200 DROP/10 ML BTLO RIGHT EYE SCH ×2 (10:51→21:47)
[2017-09-28] MEDS: FUROSEMIDE 20 MG TAB PO SCH (11:51)
--- NOTE | 2017-09-28 12:49 | HHI.PR ---
Subjective Remarks Patient seen and examined today for follow-up on sepsis secondary to C. difficile colitis. Patient still meeting criteria for sepsis. Patient still having watery bowel movements. Patient states that she still feels little weak. She is getting up and working with physical therapy. Patient with worsening lower extremity edema Objective Vital Signs Date Time Temp Pulse Resp B/P (MAP) Pulse Ox O2 Delivery O2 Flow Rate FiO2 09/28/17 09:22 97.4 109 16 158/93 (114) 95 09/28/17 00:00 96.9 101 16 135/95 (108) 95 09/27/17 20:00 96.3 104 18 144/90 (108) 98 09/27/17 16:00 97.7 98 20 137/87 (104) 95 I/O 09/27/17 09/27/17 09/27/17 09/28/17 09/28/17 09/28/17 07:00 15:00 23:00 07:00 15:00 23:00 Intake Total 750 ml 280 ml Output Total 1175 ml Balance 750 ml -1175 ml 280 ml Intake Oral 750 ml 280 ml Output Urine Total 1175 ml # Voids 3 4 2 # Bowel Movements 3 1 5 1 Result Diagram: 09/27/17 0515 09/27/17 0515 Imaging Last Impressions Abdomen/Pelvis CT 09/27/17 0000 Signed Impressions: Service Date/Time: Wednesday, September 27, 2017 13:01 - CONCLUSION: 1. No acute abnormality to explain the patient's pain. 2. Tiny bilateral pleural effusions with associated atelectasis. Vlad Thomas Jr., MD Wrist X-Ray 09/25/17 0824 Signed Impressions: Service Date/Time: Monday, September 25, 2017 08:37 - CONCLUSION: 1. No acute fracture or dislocation. 2. Soft tissue swelling involving the right wrist. 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 Jorge Girard MD Chest X-Ray 09/25/17 0000 Signed Impressions: Service Date/Time: Monday, September 25, 2017 10:32 - CONCLUSION: Bibasilar atelectasis. Jorge Girard MD Objective Remarks GENERAL: Well-developed, well-nourished, in no acute distress. alert and orientated HEENT: Head is normocephalic without any lesions or masses noted. Facial features are symmetric. Eyes: Extraocular muscles are intact. Conjunctivae were clear. NECK: Supple without any masses. Trachea midline no deviation. No JVD, CARDIAC: Regular rhythm, regular rate. S1/S2 are heard. No murmurs gallops or rubs. LUNGS: Clear to auscultation bilaterally. No wheeze, rhonchi or rales. No use of accessory muscles on inspiration or expiration. ABDOMEN: Soft, nontender. Nondistended. Bowel sounds heard in all 4 quadrants. No organomegaly or masses. Negative rebound, negative guarding EXTREMITIES: 1+ pitting edema noted bilateral lower extremities, pulses are equal bilaterally. No cyanosis or clubbing NEUROLOGY: Mood and affect appear appropriate. Cranial nerves II through XII grossly intact moving all extremities, speech is clear A/P Assessment and Plan Sepsis Patient continues to meet criteria with leukocytosis, bandemia, tachycardia, Clostridium difficile infection Continue vancomycin Urinalysis was without any sign of infection Chest x-ray does not indicate any acute infection Blood cultures negative for 3 days Clostridium difficile infection Continue vancomycin 125 mg by mouth 4 times daily Start cholestyramine twice daily Electrolyte abnormality, hyponatremia, hypocalcemia, hypokalemia Continue monitor and replete as needed Discontinue HCTZ, secondary to hyponatremia Lower extremity edema Start Lasix 20 mg by mouth daily Chronic atrial fibrillation, hypertension, hyperlipidemia Mildly elevated blood pressure and tachycardia Continue home medications Patient anticoagulated on Xarelto DVT prevention Xarelto Discharge Planning Discharge planning in 24-48 hours depending on hydration status, stool amount. Presley Marti Sep 28, 2017 12:49
[2017-09-28 14:45] VITALS: BP 137/88; PULSE 104; RESP 16; TEMP 98.4; O2SAT 94
[2017-09-28] MEDS: CHOLESTYRAMINE 4 GM PACKET PO SCH ×2 (15:28→21:49)
[2017-09-28 18:32] VITALS: BP 138/78; PULSE 64; RESP 18; TEMP 98.1; O2SAT 94
[2017-09-28 18:34] VITALS: BP 140/86; PULSE 105; RESP 16; TEMP 98.7; O2SAT 96
[2017-09-28 20:00] VITALS: BP 134/87; PULSE 105; RESP 20; TEMP 98.7; O2SAT 94
[2017-09-28] MEDS: MIRTAZAPINE 15 MG TAB PO SCH (21:49)
[2017-09-28] MEDS: PRAVASTATIN SOD 20 MG TAB PO SCH (21:49)
[2017-09-28] MEDS: MONTELUKAST SODIUM 10 MG TAB PO SCH (21:49)
[2017-09-29] VITALS: BP 152/93; PULSE 96; RESP 18; TEMP 98.1; O2SAT 95
[2017-09-29] MEDS ORDERED: diphenhydrAMINE HCL 25 MG CAP PO ONE (02:30)
--- NOTE | 2017-09-29 06:10 | HHI.DCPOC ---
Discharge Care Plan Diagnosis: (1) Clostridium difficile infection (2) Sepsis (3) Diarrhea Goals to Promote Your Health * To prevent worsening of your condition and complications * To maintain your health at the optimal level Directions to Meet Your Goals Take your medications as prescribed Follow your dietary instruction Follow activity as directed Keep your appointments as scheduled Take your immunizations and boosters as scheduled If your symptoms worsen call your PCP, if no PCP go to Urgent Care Center or Emergency Room Smoking is Dangerous to Your Health. Avoid second hand smoke Call the 24-hour hour crisis hotline for domestic abuse at Presley Marti Sep 29, 2017 06:10
--- NOTE | 2017-09-29 06:11 | HHI.FF ---
Face to Face Verification Diagnosis: (1) Sepsis (2) Hyponatremia (3) Diarrhea (4) Clostridium difficile infection Physical Therapy Order: Evaluate and Treat, Improve ambulation, Strength and gait training Home Health Nursing Order: Medical education Nursing assessment with vital signs I have seen patient Cristy Hammond on 09/29/17. My clinical findings support the need for the requested home health care services because: Deconditioned w/ increased weakness I certify that my clinical findings support that this patient is homebound because: Unsteady gait/balance Unable to use public transportation Presley Marti Sep 29, 2017 06:11
[2017-09-29] MEDS ORDERED: VANC500I3 PO (06:15)
[2017-09-29] MEDS ORDERED: FURO20TA PO (06:15)
[2017-09-29] MEDS ORDERED: COZA50TA PO (06:15)
[2017-09-29 06:23] LABS: BASOPHIL % 0.1 % (0.0-2.0); EOSINOPHIL # 0.2 TH/MM3 (0-0.4); EOSINOPHIL % 2.3 % (0.0-4.0); HEMATOCRIT 33.8 % (35.0-46.0); LYMPH % 9.4 % (9.0-44.0); LYMPHOCYTE # 0.9 TH/MM3 (1.0-4.8); MEAN CORPUSCULAR HEMOGLOBIN 28.1 PG (27.0-34.0); MEAN CORPUSCULAR HGB CONC 31.3 % (32.0-36.0); MONO % 8.5 % (0.0-8.0); NEUT % 79.7 % (16.0-70.0); PLATELET COUNT 562 TH/MM3 (150-450); RED BLOOD COUNT 3.76 MIL/MM3 (4.00-5.30); RED CELL DISTRIBUTION WIDTH 14.6 % (11.6-17.2); WHITE BLOOD COUNT 9.9 TH/MM3 (4.0-11.0)
[2017-09-29 06:32] LABS: POTASSIUM 3.6 MEQ/L (3.5-5.1)
[2017-09-29 06:36] LABS: BICARBONATE 32.3 MEQ/L (21.0-32.0); MAGNESIUM 1.7 MG/DL (1.5-2.5)
[2017-09-29 06:40] LABS: HEMO FLAGS DIFF FINAL
[2017-09-29 07:50] VITALS: BP 151/107; PULSE 100; RESP 20; TEMP 96.7; O2SAT 93
[2017-09-29] MEDS: VANCOMYCIN 500 MG VIAL (FOR ORAL USE ONLY) PO SCH (09:42)
[2017-09-29] MEDS: FUROSEMIDE 20 MG TAB PO SCH (09:42)
[2017-09-29] MEDS: LOSARTAN 50 MG TAB PO SCH (09:42)
[2017-09-29] MEDS: RIVAROXABAN 20 MG TAB PO SCH (09:43)
[2017-09-29] MEDS: TIMOLOL MALEATE 0.5% OPHT SOLN 5 ML BTL EACH EYE SCH (09:43)
[2017-09-29] MEDS: DORZOLAMIDE 2% OPTH SOLN 200 DROP/10 ML BTLO RIGHT EYE SCH (09:43)
[2017-09-29] MEDS: CHOLESTYRAMINE 4 GM PACKET PO SCH (09:43)
[2017-09-29] MEDS: SODIUM CHLORIDE 0.9% FLUSH 10 ML FLUSH IV FLUSH SCH (09:48)
--- NOTE | 2017-09-29 12:55 | HHI.DS ---
Discharge Summary Admission Date Sep 26, 2017 at 07:23 Discharge Date: Sep 29, 2017 Admitting Diagnosis Sepsis/diarrhea (1) Clostridium difficile infection ICD Code: B96.89 - Other specified bacterial agents as the cause of diseases classified elsewhere Diagnosis: Principal (2) Sepsis ICD Code: A41.9 - Sepsis, unspecified organism Diagnosis: Principal Status: Acute (3) Electrolyte abnormality ICD Code: E87.8 - Other disorders of electrolyte and fluid balance, not elsewhere classified Diagnosis: Principal (4) Afib ICD Code: I48.91 - Unspecified atrial fibrillation (5) Asthma in adult ICD Code: J45.909 - Asthma in adult Status: Chronic (6) HTN (hypertension) ICD Code: I10 - Essential (primary) hypertension Status: Chronic (7) Edema ICD Code: R60.9 - Edema, unspecified Procedures None Brief History - From Admission Written by Deepika Terry, acting as scribe for Dr. Raygoza on 09/25/17 at 10:57. Ms. Hammond is an 86-year-old female patient with a known medical history of atrial fibrillation on Xarelto, dyslipidemia, hypertension, and recent hospitalization for pneumonia who presented to the ED with complaints of right wrist pain and generalized weakness. Patient states that she had been treated with IV antibiotics while hospitalized and subsequently complaints of diarrhea that started 3 days ago and saw her PCP who gave her Lomotil which temporarily has helped the diarrhea. Does admit to associated weakness. Denies any recent fever, chills, headache, abdominal pain, n/d or dysuria. Patient also complaints of right wrist pain and swelling, she states she went to bed fine and woke up with erythema, swelling and pain to her right wrist due to unknown cause states she possibly hit it accidentally on her head board. CBC/BMP: 09/29/17 0555 09/29/17 0555 Significant Findings Laboratory Tests Test 09/27/17 05:15 09/29/17 05:55 White Blood Count 14.4 TH/MM3 (4.0-11.0) Red Blood Count 3.57 MIL/MM3 (4.00-5.30) 3.76 MIL/MM3 (4.00-5.30) Hemoglobin 10.9 GM/DL (11.6-15.3) 10.6 GM/DL (11.6-15.3) Hematocrit 33.1 % (35.0-46.0) 33.8 % (35.0-46.0) Neutrophils (%) (Auto) 81.8 % (16.0-70.0) 79.7 % (16.0-70.0) Lymphocytes (%) (Auto) 4.6 % (9.0-44.0) Monocytes (%) (Auto) 11.7 % (0.0-8.0) 8.5 % (0.0-8.0) Neutrophils # (Auto) 11.8 TH/MM3 (1.8-7.7) 8.0 TH/MM3 (1.8-7.7) Lymphocytes # (Auto) 0.7 TH/MM3 (1.0-4.8) 0.9 TH/MM3 (1.0-4.8) Monocytes # (Auto) 1.7 TH/MM3 (0-0.9) Toxic Granulation 1+ (NORMAL) Creatinine 0.35 MG/DL (0.50-1.00) 0.32 MG/DL (0.50-1.00) Calcium Level 7.5 MG/DL (8.5-10.1) 7.6 MG/DL (8.5-10.1) Sodium Level 132 MEQ/L (136-145) 132 MEQ/L (136-145) Mean Corpuscular Hemoglobin Concent 31.3 % (32.0-36.0) Platelet Count 562 TH/MM3 (150-450) Mean Platelet Volume 6.0 FL (7.0-11.0) Blood Urea Nitrogen 5 MG/DL (7-18) Chloride Level 94 MEQ/L (98-107) Carbon Dioxide Level 32.3 MEQ/L (21.0-32.0) Imaging Last Impressions Abdomen/Pelvis CT 09/27/17 0000 Signed Impressions: Service Date/Time: Wednesday, September 27, 2017 13:01 - CONCLUSION: 1. No acute abnormality to explain the patient's pain. 2. Tiny bilateral pleural effusions with associated atelectasis. Vlad Thomas Jr., MD Wrist X-Ray 09/25/17 0824 Signed Impressions: Service Date/Time: Monday, September 25, 2017 08:37 - CONCLUSION: 1. No acute fracture or dislocation. 2. Soft tissue swelling involving the right wrist. 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 Jorge Girard MD Chest X-Ray 09/25/17 0000 Signed Impressions: Service Date/Time: Monday, September 25, 2017 10:32 - CONCLUSION: Bibasilar atelectasis. Jorge Girard MD PE at Discharge GENERAL: This is a well-nourished, well-developed patient, complaining of myalgias and who appears her stated age CARDIOVASCULAR: Regular rate and rhythm without murmurs, gallops, or rubs. RESPIRATORY: Clear to auscultation. Breath sounds equal bilaterally. No wheezes , rales, or rhonchi. GASTROINTESTINAL: Abdomen soft, non-tender, moderately distended. Normal active bowel sounds MUSCULOSKELETAL: Extremities without clubbing, cyanosis, or edema. NEURO: Alert & Oriented x4 to person, place, time, situation. Moves all ext x4 Hospital Course 86-year-old female who originally presented to the hospital secondary to generalized weakness. Patient had recent treatment with IV antibiotics and started developing diarrhea 3 days prior to, to the hospital. Patient went to her PCP and she was given Lomotil with temporary relief of the diarrhea. Patient be presented to the ER. Patient had workup performed and found to have significant electrolyte abnormalities, sepsis secondary to clostridium difficile. Patient was started on vancomycin 125 mg by mouth every 6 hours. Her clinical symptoms did improve. Her leukocytosis resolved. Electrolyte abnormalities resolved and remained stable. Patient continued to have at least 5-7 bowel movements daily. She is started on cholestyramine and only had 1 bowel movement in the last 24 hours. Physical therapy was consulted and she did quite well and it was recommended the patient to be discharged home with home health care and physical therapy. This was discussed with patient and family at bedside. Patient is clinically stable. Will plan discharge accordingly with home health care. Pt Condition on Discharge: Stable Discharge Disposition: Disch w/ Home Health Serv Discharge Time: > 30 minutes Discharge Instructions DIET: Follow Instructions for: As Tolerated, No Restrictions Activities you can perform: Regular-No Restrictions Activities to Avoid: Driving for 24 hrs Follow up Referrals: PCP Follow-up - 1 Week SNF/[facility]PC/HH with [facility] New Medications: Furosemide (Furosemide) 20 Mg Tab 20 MG PO DAILY for Blood Pressure Management, #30 TAB Losartan (Cozaar) 50 Mg Tab 50 MG PO DAILY for Blood Pressure Management, #30 TAB Vancomycin Inj (Vancomycin Inj) 500 Mg Inj 125 MG PO QID for Clostridium difficile for 11 Days, INJECTION Continued Medications: Dorzolamide Opth Drops (Dorzolamide Opth Drops) 2% Soln 1 DROP RIGHT EYE BID for Glaucoma, #1 BOTTLE 0 Refills Latanoprost Opth Drops (Latanoprost Opth Drops) 0.005% Drops 1 DROP EACH EYE HS for Glaucoma, #2.5 ML 0 Refills Refrigerate until opened. Mirtazapine (Mirtazapine) 30 Mg Tab 30 MG PO HS for Depression Control, #30 TAB 0 Refills Montelukast (Singulair) 10 Mg Tab 10 MG PO HS, #30 TAB 0 Refills Multiple Vitamins W/ Minerals (Ocuvite Adult 50+) 1 Cap 1 CAP PO DAILY for Nutritional Supplement, CAP 0 Refills Pravastatin (Pravastatin) 20 Mg Tab 20 MG PO HS for Cholesterol Management, #30 TAB 0 Refills Rivaroxaban (Xarelto) 20 Mg Tab 20 MG PO DAILY for Blood Clot Prevention, TAB 0 Refills Timolol Opth Drops (Timoptic Opth Drops) 0.5 % Soln 1 DROP EACH EYE BID for Glaucoma, #1 BOTTLE 0 Refills Discontinued Medications: Losartan-Hydrochlorothiazide (Losartan-Hydrochlorothiazide) 50-12.5 Mg Tab 1 TAB PO DAILY for Blood Pressure Management, #30 TAB 0 Refills Prednisone (Prednisone) 50 Mg Tab 50 MG PO DAILY for 3 Days, #3 TAB 0 Refills Presley Marti Sep 29, 2017 12:55
--- NOTE | 2017-09-29 17:36 | HHI.FF ---
Face to Face Verification Diagnosis: (1) Electrolyte abnormality (2) Clostridium difficile infection Physical Therapy Order: Evaluate and Treat, Improve ambulation, Strength and gait training Home Health Nursing Order: Medical education Signs/symptoms of disease process Nursing assessment with vital signs I have seen patient Cristy Hammond on 09/29/17. My clinical findings support the need for the requested home health care services because: Ltd mobility - disease progression Deconditioned w/ increased weakness Limited ability to care for self Need for psychosocial assistance Impaired cognition/judgement High risk of falls Infection w/ risk of complications I certify that my clinical findings support that this patient is homebound because: Unsteady gait/balance Unsafe to leave home unassisted Need for psychosocial assistance [id number]-yaqrvuco bed/chair Unable to use public transportation Newton Chaudhry DO Sep 29, 2017 5:36 pm
== END 2017-09-29 11:28 | disposition home health service (06) | DRG 872 ==
LOC: PHED 08:08 → PHEDA 10:36 → PH3B 12:00 → OBSVTOIN 09-26 07:23
PROVIDERS: ADMIT Hospitalist; ATTEND Hospitalist
DX: A41.4 Sepsis due to anaerobes (principal); A04.72 Enterocolitis due to Clostridium difficile, not specified as recurrent; E87.1 Hypo-osmolality and hyponatremia; E83.51 Hypocalcemia; I48.2 Chronic atrial fibrillation; J45.909 Unspecified asthma, uncomplicated; I10 Essential (primary) hypertension; Z79.02 Long term (current) use of antithrombotics/antiplatelets; Z87.01 Personal history of pneumonia (recurrent); Z86.73 Personal history of transient ischemic attack (TIA), and cerebral infarction without residual deficits; H40.9 Unspecified glaucoma; H35.30 Unspecified macular degeneration; G47.33 Obstructive sleep apnea (adult) (pediatric); E78.5 Hyperlipidemia, unspecified; R60.0 Localized edema; R00.0 Tachycardia, unspecified
CPT/HCPCS: 71010; 73110; 74177; 80048; 80053; 81001; 83605; 83690; 83735; 84155; 85007; 85025; 85027; 87040; 87493; 90471; 93005; G0008; J1885; J1940; J7030; J7040; Q9963; Q9967

== ENCOUNTER 2017-12-10 11:29 | Emergency (ER) | payer MEDICARE, BC ==
[~2017-12-10] VITALS: Ht 170.2 cm; Wt 78.0 kg
[~2017-12-10 11:29] MED LIST changes: -ALBU0.08 NEB; -AMBI10TA PO; +COZA50TA PO; +FURO20TA PO; -HYDR12.57 PO; -LEVO500T8 PO; -LOSA50TA2 PO; -PANT40TA3 PO; -PRED50 PO; -SENN1TAB PO; +VANC500I3 PO; -VITA100018 PO; -VITA10002 PO
[2017-12-10 11:31] VITALS: BP 138/83; PULSE 98; RESP 18; TEMP 98.1; O2SAT 97
[2017-12-10] MEDS ORDERED: VANC125C3 PO (11:44)
--- NOTE | 2017-12-10 11:58 | PD ---
HPI Chief Complaint: Dizziness Time Seen by Provider: 11:44 Travel History International Travel<30 days: No Contact w/Intl Traveler<30days: No Traveled to known affect area: No History of Present Illness HPI Patient is an 86-year-old female presents emergency department for evaluation of "dizziness" and a fall at home. Patient states that earlier today she was getting her hair done and begin the felt dizzy. She states that points during the history that she felt like she was going to pass out then also states that she felt like she was going to pass out but then later states she did not think she was going to pass out. States a very vague sensation of just not feeling right. She states she was able to drive herself home and then when she got out of the car she felt woozy and dizzy and does not know exactly how she ended up on the floor but knows that she fell because she found herself on the garage floor. She states currently she feels fine, states that she has only minimal pain in her left hip and thinks that she hit her head. Patient is on Xarelto for history of atrial fibrillation but does not have a history of congestive heart failure. Denies any chest pain shortness of breath or palpitations during the episodes this morning. States symptoms were moderate, associated with a fall, started just prior to arrival associated signs and symptoms in context as above. PFSH Past Medical History Hx Anticoagulant Therapy: Yes (XARELTO) AAA: Yes Alzheimer's Disease: Yes ("EARLY") Arthritis: Yes Asthma: Yes Atrial Fibrillation: Yes Heart Rhythm Problems: Yes (A-fib) Cardiovascular Problems: Yes (A FIB) High Cholesterol: Yes Chemotherapy: No Chest Pain: No Congestive Heart Failure: No COPD: No Cerebrovascular Accident: Yes (X3) Diabetes: No Diminished Hearing: No Endocrine: No Glaucoma: Yes Genitourinary: No Hepatitis: No Hiatal Hernia: No Hypertension: Yes Immune Disorder: No Inguinal Hernia: Yes Implanted Vascular Access Dvce: No Musculoskeletal: Yes (ARTHRITIS HIP AND HANDS) Neurologic: No Psychiatric: No Reproductive: No Respiratory: Yes (SOB AT TIMES, ALLERGIES, BRONCHITIS ) Immunizations Current: Yes Pneumonia: Yes Radiation Therapy: No Sleep Apnea: Yes (cpap) Thyroid Disease: No Influenza Vaccination: Yes PNEUMOCCOCAL Vaccine (Year): 2009 ?: Not Menopausal: Yes : 3 Para: 3 Past Surgical History Abdominal Surgery: Yes (ing hernia appy ) AICD: No Appendectomy: Yes Cardiac Surgery: No Ear Surgery: No Endocrine Surgery: No Eye Surgery: Yes (cataract ) Genitourinary Surgery: Yes (bladder prolapse) Gynecologic Surgery: Yes (hysterectomy breat biopsy) Hysterectomy: Yes Joint Replacement: No Neurologic Surgery: No Oral Surgery: No Pacemaker: No Thoracic Surgery: Yes (2 BREAST BIOPSIES) Other Surgery: Yes (2 BREAST BIOPSIES: EACH BREAST "NO MALIGNANCIES") Social History Alcohol Use: No Tobacco Use: No Substance Use: No Allergies-Medications (Allergen,Severity, Reaction): Coded Allergies: mold (Unverified Allergy, Severe, Shortness of Breath, 12/10/17) Reported Meds & Prescriptions Reported Meds & Active Scripts Active Keflex (Cephalexin) 500 Mg Capsule 500 Mg PO Q6H 7 Days Furosemide 20 Mg Tab 20 Mg PO DAILY Cozaar (Losartan Potassium) 50 Mg Tab 50 Mg PO DAILY Reported Vancomycin (Vancomycin HCl) 125 Mg Cap 125 Mg PO QID Dorzolamide Opth Drops (Dorzolamide HCl) 2% Soln 1 Drop RIGHT EYE BID Latanoprost Opth Drops (Latanoprost) 0.005% Drops 1 Drop EACH EYE HS Refrigerate until opened. Pravastatin 20 Mg Tab 20 Mg PO HS Ocuvite Adult 50+ (Multiple Vitamins W/ Minerals) 1 Cap 1 Cap PO DAILY Xarelto (Rivaroxaban) 20 Mg Tab 20 Mg PO DAILY Timoptic Opth Drops (Timolol Opth Drops) 0.5 % Soln 1 Drop EACH EYE BID Singulair (Montelukast Sodium) 10 Mg Tab 10 Mg PO HS Mirtazapine 30 Mg Tab 30 Mg PO HS Review of Systems Except as stated in HPI: all other systems reviewed are Neg Physical Exam Narrative GENERAL: Well-developed, well-nourished, no obvious distress SKIN: Focused skin assessment warm/dry. HEAD: Atraumatic. Normocephalic. EYES: Pupils equal and round. No scleral icterus. No injection or drainage. ENT: No nasal bleeding or discharge. Mucous membranes pink and moist. NECK: Trachea midline. No JVD. CARDIOVASCULAR: Regular rate and rhythm. No murmur appreciated. RESPIRATORY: No accessory muscle use. Clear to auscultation. Breath sounds equal bilaterally. GASTROINTESTINAL: Abdomen soft, non-tender, nondistended. Hepatic and splenic margins not palpable. MUSCULOSKELETAL: No obvious deformities. No clubbing. No cyanosis. No edema. Patient does complain of some pain at her left knee and left hip. There is no bruising or laceration or abrasion seen at either joint, compartments are soft, 2+ bilateral equal pulses in all 4 extremities, pelvis stable, no midline CT or L-spine tenderness NEUROLOGICAL: Awake and alert. Cranial nerves II through XII are grossly intact and nonfocal, 5 out of 5 strength in all 4 extremities, cerebellar testing negative, ambulates with a walker as she does at baseline. PSYCHIATRIC: Appropriate mood and affect; insight and judgment normal. Data Data Last Documented VS Vital Signs Date Time Temp Pulse Resp B/P (MAP) Pulse Ox O2 Delivery O2 Flow Rate FiO2 12/10/17 14:09 12/10/17 13:07 83 18 96 Room Air 12/10/17 11:31 98.1 Orders Orders Complete Blood Count With Diff (12/10/17 11:52) Comprehensive Metabolic Panel (12/10/17 11:52) Magnesium (Mg) (12/10/17 11:52) Ckmb (Isoenzyme) Profile (12/10/17 11:52) Troponin I (12/10/17 11:52) Act Partial Throm Time (Ptt) (12/10/17 11:52) Prothrombin Time / Inr (Pt) (12/10/17 11:52) Urinalysis - C+S If Indicated (12/10/17 11:52) Chest, Single Ap (12/10/17 11:52) Ct Brain W/O Iv Contrast(Rout) (12/10/17 11:52) Ct Cerv Spine W/O Contrast (12/10/17 11:52) Ecg Monitoring (12/10/17 11:52) Iv Access Insert/Monitor (12/10/17 11:52) Oximetry (12/10/17 11:52) Sodium Chloride 0.9% Flush (Ns Flush) (12/10/17 12:00) Knee, Complete (4vws) (12/10/17 ) Hip, Uni(Ap&Lat) W Ap Pelvis (12/10/17 ) CKMB (12/10/17 12:00) CKMB% (12/10/17 12:00) Urine Culture (12/10/17 13:00) Ed Discharge Order (12/10/17 13:58) Cephalexin (Keflex) (12/10/17 14:00) Electrocardiogram (12/10/17 11:39) Labs Laboratory Tests Test 12/10/17 12:00 12/10/17 13:00 White Blood Count 7.4 TH/MM3 Red Blood Count 4.23 MIL/MM3 Hemoglobin 12.8 GM/DL Hematocrit 38.4 % Mean Corpuscular Volume 90.8 FL Mean Corpuscular Hemoglobin 30.1 PG Mean Corpuscular Hemoglobin Concent 33.2 % Red Cell Distribution Width 14.0 % Platelet Count 325 TH/MM3 Mean Platelet Volume 6.4 FL Neutrophils (%) (Auto) 80.1 % Lymphocytes (%) (Auto) 8.8 % Monocytes (%) (Auto) 5.6 % Eosinophils (%) (Auto) 2.1 % Basophils (%) (Auto) 3.4 % Neutrophils # (Auto) 5.8 TH/MM3 Lymphocytes # (Auto) 0.7 TH/MM3 Monocytes # (Auto) 0.4 TH/MM3 Eosinophils # (Auto) 0.2 TH/MM3 Basophils # (Auto) 0.3 TH/MM3 CBC Comment DIFF FINAL Differential Comment Prothrombin Time 11.8 SEC Prothromb Time International Ratio 1.2 RATIO Activated Partial Thromboplast Time 29.4 SEC Blood Urea Nitrogen 18 MG/DL Creatinine 0.56 MG/DL Random Glucose 94 MG/DL Total Protein 6.7 GM/DL Albumin 3.4 GM/DL Calcium Level 8.6 MG/DL Magnesium Level 2.3 MG/DL Alkaline Phosphatase 70 U/L Aspartate Amino Transf (AST/SGOT) 19 U/L Alanine Aminotransferase (ALT/SGPT) 22 U/L Total Bilirubin 0.3 MG/DL Sodium Level 134 MEQ/L Potassium Level 4.1 MEQ/L Chloride Level 98 MEQ/L Carbon Dioxide Level 27.6 MEQ/L Anion Gap 8 MEQ/L Estimat Glomerular Filtration Rate 102 ML/MIN Total Creatine Kinase 122 U/L Creatine Kinase MB 2.8 NG/ML Troponin I LESS THAN 0.02 NG/ML Urine Collection Type CLEAN CATCH Urine Color YELLOW Urine Turbidity SL CLOUDY Urine pH 6.5 Urine Specific Roy LESS/EQUAL 1.005 Urine Protein NEG mg/dL Urine Glucose (UA) NEG mg/dL Urine Ketones NEG mg/dL Urine Occult Blood NEG Urine Nitrite POS Urine Bilirubin NEG Urine Urobilinogen 0.2 MG/DL Urine Leukocyte Esterase LARGE Urine WBC 50-99 /hpf Urine WBC Clumps MOD Urine Squamous Epithelial Cells 0-5 /hpf Urine Amorphous Sediment FEW Urine Bacteria MANY /hpf Microscopic Urinalysis Comment CULTURE INDICATED Urine Collection Time 1300 MDM Medical Decision Making Medical Screen Exam Complete: Yes Emergency Medical Condition: Yes Differential Diagnosis Fall, syncope is a possibility, head injury, hip injury, knee injury, arrhythmia Narrative Course Patient was room to the emergency department, she is somewhat vague on the circumstances surrounding her fall. The patient states she just felt woozy but adamantly denies passing out or feeling like she was going to pass out on my reevaluation. CT head, C-spine negative for acute injury, hip and knee negative , chest x-ray negative, her EKG is reassuring. Basic labs are also reassuring. The patient does have urinary tract infection, has a history of C. difficile and is on oral vancomycin. Had a lengthy discussion with the patient regarding the circumstances regarding her fall and she is adamant that she did not pass out or come close to passing out. Discussed that if there was any indication that she could have passed out that I would recommend staying in the hospital for further evaluation, the patient is reluctant to stay would rather go home as she states she feels fine now. I do not find cause of her symptoms otherwise and this was explained to her. I did discuss that urinary tract infection can have a fairly profound effect on an elderly female but this is not 100%. She verbalized understanding and agreement and expressed her wishes to go home. Will be started on antibiotics, discussed follow-up with a primary care physician she states she has an appointment on Wednesday in 2 days Diagnosis Primary Impression: Fall Additional Impressions: Hip pain UTI (urinary tract infection) Weakness Med/Other Pt SpecificInfo: Prescription(s) given Scripts Cephalexin (Keflex) 500 Mg Capsule 500 MG PO Q6H for Infection for 7 Days, #28 CAP 0 Refills Prov: Jorge Gabriel MD 12/10/17 Disposition: 01 DISCHARGE HOME Condition: Stable Jorge Gabriel MD Dec 10, 2017 11:58
[2017-12-10] MEDS ORDERED: SODIUM CHLORIDE 0.9% FLUSH 10 ML FLUSH IVF PRN (12:00)
[2017-12-10 12:05] VITALS: BP 127/74; PULSE 90; RESP 18; O2SAT 96
[2017-12-10 12:15] LABS: AUTOMATED NEUTROPHIL # 5.8 TH/MM3 (1.8-7.7); BASOPHIL # 0.3 TH/MM3 (0-0.2); BASOPHIL % 3.4 % (0.0-2.0); EOSINOPHIL # 0.2 TH/MM3 (0-0.4); EOSINOPHIL % 2.1 % (0.0-4.0); HEMATOCRIT 38.4 % (35.0-46.0); HEMOGLOBIN 12.8 GM/DL (11.6-15.3); LYMPH % 8.8 % (9.0-44.0); LYMPHOCYTE # 0.7 TH/MM3 (1.0-4.8); MEAN CELL VOLUME 90.8 FL (80.0-100.0); MEAN CORPUSCULAR HEMOGLOBIN 30.1 PG (27.0-34.0); MEAN CORPUSCULAR HGB CONC 33.2 % (32.0-36.0); MEAN PLATELET VOLUME 6.4 FL (7.0-11.0); MONO % 5.6 % (0.0-8.0); MONOCYTE # 0.4 TH/MM3 (0-0.9); NEUT % 80.1 % (16.0-70.0); PLATELET COUNT 325 TH/MM3 (150-450); RED BLOOD COUNT 4.23 MIL/MM3 (4.00-5.30); WHITE BLOOD COUNT 7.4 TH/MM3 (4.0-11.0)
[2017-12-10 12:19] LABS: CHLORIDE 98 MEQ/L (98-107); SODIUM (NA) 134 MEQ/L (136-145)
[2017-12-10 12:22] LABS: ALBUMIN 3.4 GM/DL (3.4-5.0); BICARBONATE 27.6 MEQ/L (21.0-32.0); CALCIUM 8.6 MG/DL (8.5-10.1)
[2017-12-10 12:23] LABS: BLOOD UREA NITROGEN 18 MG/DL (7-18); GLUCOSE,RANDOM 94 MG/DL (74-106); INTERNATIONAL NORMALIZED RATIO 1.2 RATIO; MAGNESIUM 2.3 MG/DL (1.5-2.5); PROTHROMBIN TIME - PATIENT 11.8 SEC (9.8-11.6)
[2017-12-10 12:26] LABS: ALT (GPT) 22 U/L (10-53); AST (GOT) 19 U/L (15-37); CREATININE 0.56 MG/DL (0.50-1.00); GLOMERULAR FILTRATION RATE 102 ML/MIN (>89)
[2017-12-10 12:27] LABS: TOTAL BILIRUBIN ADULT 0.3 MG/DL (0.2-1.0); TOTAL PROTEIN 6.7 GM/DL (6.4-8.2)
[2017-12-10 12:28] LABS: ALKALINE PHOSPHATASE 70 U/L (45-117)
[2017-12-10 12:31] LABS: TROPONIN I LESS THAN 0.02 NG/ML (0.02-0.05)
--- NOTE | 2017-12-10 12:39 | RADRPT ---
EXAM DATE/TIME: 12/10/2017 12:17 [facility] COMPARISON: No previous studies available for comparison. INDICATIONS : Palpitations.Weakness. Fall today. MEDICAL HISTORY : Cerebrovascular disease. Aneurysm, abdominal. Hypercholesterolemia.Anticoagulant therapy. Hypertensio n. SURGICAL HISTORY : Appendectomy. Inguinal hernia repair.Hysterectomy.Bladder prolapse. ENCOUNTER: Initial ACUITY: 1 day PAIN SCORE: 0/10 LOCATION: chest FINDINGS: A single view of the chest demonstrates the lungs to be symmetrically aerated without evidence of mas s, infiltrate or effusion. Minimal basilar scarring. The cardiomediastinal contours demonstrate tortu ous aorta. CONCLUSION: 1. No acute findings. Minimal basal scarring similar to September 25, 2017. Tortuous aorta. Pj Moses MD on December 10, 2017 at 12:35 Board Certified Radiologist. This report was verified electronically.
--- NOTE | 2017-12-10 12:42 | RADRPT ---
EXAM DATE/TIME: 12/10/2017 12:17 [facility] COMPARISON: No previous studies available for comparison. INDICATIONS : Left knee pain post fall today. MEDICAL HISTORY : Hypertension. Cerebrovascular disease. Aneurysm, abdominal. Hypercholesterolemia.Anticoagulant therapy. SURGICAL HISTORY : Appendectomy. Inguinal hernia repair.Hysterectomy.Bladder prolapse. ENCOUNTER: Initial ACUITY: 1 day PAIN SCORE: 3/10 LOCATION: Left knee FINDINGS: There is mild to moderate osteoarthritis of the left knee. No acute fracture or subluxation. No bony destructive changes. Trace joint fluid. CONCLUSION: 1. Mild to moderate osteoarthritis of the left knee. Trace joint effusion. No acute fracture. Pj Moses MD on December 10, 2017 at 12:36 Board Certified Radiologist. This report was verified electronically.
--- NOTE | 2017-12-10 12:43 | RADRPT ---
EXAM DATE/TIME: 12/10/2017 12:17 [facility] COMPARISON: No previous studies available for comparison. INDICATIONS : Left hip pain post fall today. MEDICAL HISTORY : Hypertension. Cerebrovascular disease. Aneurysm, abdominal. Hypercholesterolemia.Anticoagulant therapy. SURGICAL HISTORY : Appendectomy. Inguinal hernia repair.Hysterectomy.Bladder prolapse. ENCOUNTER: Initial ACUITY: 1 day PAIN SCORE: 4/10 LOCATION: Left hip/ pelvis FINDINGS: Examination of the left hip was performed with AP Pelvis. The primary and secondary trabecular patte rn of the femoral neck is intact. The hip joint is of normal width without significant sclerosis or bony hypertrophy. The acetabulum is grossly intact. CONCLUSION: 1. One examination is within normal limits for age. No acute fracture. Pj Moses MD on December 10, 2017 at 12:40 Board Certified Radiologist. This report was verified electronically.
[2017-12-10 13:04] LABS: BILIRUBIN, URINE NEG (NEG); BLOOD, URINE NEG (NEG); GLUCOSE,URINE NEG (NEG); KETONE, URINE NEG (NEG); NITRITE,URINE POS (NEG); PH, URINE 6.5 (5.0-8.5); URINE COLOR YELLOW (YELLW/STRAW); URINE LEUKOCYTE ESTERASE LARGE (NEG)
--- NOTE | 2017-12-10 13:04 | RADRPT ---
EXAM DATE/TIME: 12/10/2017 12:37 [facility] COMPARISON: CT BRAIN W/O CONTRAST, December 03, 2016, 6:13. INDICATIONS : Trauma. Fall. Dizziness and weakness. RADIATION DOSE: 65.01 CTDIvol (mGy) MEDICAL HISTORY : Cerebrovascular disease. Alzheimer's. Hypertension. SURGICAL HISTORY : Hysterectomy. ENCOUNTER: Initial ACUITY: 1 day PAIN SCALE: 0/10 LOCATION: cranial TECHNIQUE: Multiple contiguous axial images were obtained of the head. Using automated exposure control and adj ustment of the mA and/or kV according to patient size, radiation dose was kept as low as reasonably a chievable to obtain optimal diagnostic quality images. DICOM format image data is available electro nically for review and comparison. FINDINGS: No signs of intracranial hemorrhage or mass. There are no fractures. Minimal frontal periventricular white matter disease. Vascular calcifications are noted. Ventricles and cisterns are of normal size a nd configuration. CONCLUSION: No acute disease. Gerard Cope MD on December 10, 2017 at 13:02 Board Certified Radiologist. This report was verified electronically.
[2017-12-10 13:07] VITALS: BP 154/78; PULSE 83; RESP 18; O2SAT 96
[2017-12-10 13:09] LABS: BACTERIA, URINE MANY /hpf
[2017-12-10 13:10] LABS: AMORPHOUS SEDIMENT, URINE FEW; SQUAMOUS EPITHELIAL CELL URINE 0-5 /hpf (0-5); WHITE BLOOD CELL CLUMPS MOD
--- NOTE | 2017-12-10 13:36 | RADRPT ---
EXAM DATE/TIME: 12/10/2017 12:37 [facility] COMPARISON: No previous studies available for comparison. INDICATIONS : Trauma. Fall. Dizziness and weakness. RADIATION DOSE: 25.73 CTDIvol (mGy) MEDICAL HISTORY : Cerebrovascular disease. Alzheimer's. Hypertension. SURGICAL HISTORY : Hysterectomy. ENCOUNTER: Initial ACUITY: 1 day PAIN SCALE: 0/10 LOCATION: neck TECHNIQUE: Volumetric scanning of the cervical spine was performed. Multiplanar reconstructions in the sagittal, coronal and oblique axial planes were performed. Using automated exposure control and adjustment o f the mA and/or kV according to patient size, radiation dose was kept as low as reasonably achievable to obtain optimal diagnostic quality images. DICOM format image data is available electronically f or review and comparison. FINDINGS: Vertebral body heights are maintained. Osseous structures are intact without evidence for acute bony fracture. Dens is intact. Mild grade 1 approximately 3 mm anterolisthesis of C4 on C5. There is a nor mal C1-2 relationship. Facets are normally aligned. There is no significant prevertebral soft tissue hematoma. Degenerative spondylosis of the cervical spine most prominent at C5-7 with disc space narro wing and osteophyte formation. Bony central canal is maintained. No significant cervical adenopathy o r gross mass. The thyroid appears unremarkable. Prominent carotid artery calcifications bilaterally. Tortuous right subclavian artery. Visualized lung apices are clear without pneumothorax. CONCLUSION: 1. No acute fracture or subluxation. 2. Degenerative spondylosis of the lower cervical spine most prominently at C5-7. 3. Prominent carotid artery calcified plaque. Ghulam Jerez MD on December 10, 2017 at 13:06 Board Certified Radiologist. This report was verified electronically.
[2017-12-10] MEDS ORDERED: CEPH-460 PO (13:58)
[2017-12-10] MEDS ORDERED: CEPHALEXIN MONOHYDRATE 500 MG CAP PO ONE (14:00)
--- NOTE | 2017-12-11 10:12 | EKG ---
Date Performed: 12/10/2017 Time Performed: 11:39:18 PTAGE: 86 years EKG: Sinus rhythm POSSIBLE LEFT ATRIAL ENLARGEMENT POSSIBLE RIGHT VENTRICULAR CONDUCTION DELAY BORDERLINE ECG INTERPRE TATION BASED ON A DEFAULT AGE OF 40 YEARS NO PREVIOUS TRACING DOCTOR: Antoni Edwards Interpretating Date/Time 12/11/2017 10:09:15
== END 2017-12-10 14:12 | disposition home or self-care (01) ==
LOC: PHED 11:29
DX: M25.552 Pain in left hip (principal); N39.0 Urinary tract infection, site not specified; R53.1 Weakness; E78.00 Pure hypercholesterolemia, unspecified; I10 Essential (primary) hypertension; I48.91 Unspecified atrial fibrillation; Z79.01 Long term (current) use of anticoagulants
CPT/HCPCS: 70450; 71045; 72125; 73502; 73564; 80053; 81001; 82550; 82552; 83735; 84484; 85025; 85610; 85730; 87086; 93005; 99285